=== PATIENT | female | born 1945 | race Caucasian/White ===

== ENCOUNTER 2016-06-21 02:37 | Inpatient (IN) | payer OTHER ==
[~2016-06-21] VITALS: Ht 162.6 cm; Wt 78.0 kg
--- NOTE | 2016-06-21 16:07 | RADIOLOGY REPORT ---
EXAMINATION:\H\ \N\XR CHEST CLINICAL INFORMATION: Port-A-Cath insertion. COMPARISON: None TECHNIQUE: Fluoroscopic imaging of the chest was performed. 2 saved spot fluoroscopy images are submitted into the electronic picture archive. FLUOROSCOPY TIME: 0.23 minutes. FINDINGS: The tip of the suboptimally visualized catheter appears to terminate at the level of the cavoatrial junction. Please refer to the operative report. IMPRESSION: Fluoroscopic imaging assistance was provided to operating room for Port-A-Cath insertion.
--- NOTE | 2016-06-21 16:26 | RADIOLOGY REPORT ---
EXAMINATION: XR PORTABLE CHEST CLINICAL INFORMATION: Cardiac arrest. COMPARISON: None TECHNIQUE: Portable AP view of the chest was obtained. FINDINGS: The tip of the endotracheal tube is located 1 cm above the lona. The tip of the Port-A-Cath terminates in the region of the cavoatrial junction. A chest tube is seen at the base of the left hemithorax. No pneumothorax. Cardiac silhouette is normal in size. Bronchial paulson appear relatively thick in the perihilar regions. There is nonspecific opacity in the retrocardiac area of the left lower lobe. No peripheral interstitial edema or pleural effusion. Mild dextroscoliosis of the thoracic spine. IMPRESSION: 1. Endotracheal tube is located 1 cm above the lona. Recommend withdrawing the tube by at least 1-2 cm. (This was discussed with the Hilda Charge Nurse, at 4:20 PM) 2. Nonspecific opacity in retrocardiac region of left lower lobe. In an acute setting, the possibility of aspiration pneumonia would be considered. Follow-up is recommended.
[2016-06-21 16:49] LABS: ABSOLUTE BASOPHIL COUNT 0.2 /CUMM (0.0-0.2); ABSOLUTE MONOCYTE COUNT 0.2 /CUMM (0.10-0.60); BASOPHIL % 0.7 % (0.0-2.0)
[2016-06-21 16:53] LABS: ABSOLUTE EOSINOPHIL COUNT 1.3 /CUMM (0.0-0.7); ABSOLUTE GRANULOCYTE CT 17.8 /CUMM (1.4-6.5); ABSOLUTE LYMPH COUNT 5.4 /CUMM (1.2-3.4); EOSINOPHIL % 5.1 % (0-5); GRANULOCYTE % 71.9 % (42.2-75.2); HEMATOCRIT 22.2 % (37-47); MEAN CORPUSCULAR HGB 28.5 PG (27.0-31.0); MEAN CORPUSCULAR HGB CONC 32.7 G/DL (33.0-37.0); MEAN PLATELET VOLUME 7.9 FL (7.4-10.4); PLATELET COUNT 97 /CUMM (130-400); RBC DISTRIBUTION WIDTH 18.9 % (11.5-14.5); RED BLOOD CELL CT 2.56 /CUMM (4.20-5.40); WHITE BLOOD CELL COUNT 24.7 /CUMM (4.8-10.8)
[2016-06-21 16:57] LABS: PTT 55 SEC (25-37)
[2016-06-21 17:05] VITALS: BP 100/60
--- NOTE | 2016-06-21 17:06 | Cons- CRCU ---
RAYSA DAVIS,[facility] 06/21/16 1706: General Information and HPI Consulting Request Date of Consult: 06/21/16 Requested By: Dr Paez Reason for Consult: Critically Ill Source of Information: family, old records, friend Exam Limitations: unable to give history History of Present Illness: Ms Jauregui is a 71-year-old female with past medical history of Colon Cancer s /p several weeks post robotic right colectomy and GERD who had presented to [facility] on 06/21/2016 for placement of a left Port-A-Cath as she was planning to start chemotherapy June 27. Reports from the OR state the patient had successfully undergone placement of Port-A-Cath. Following the procedure she was alert and oriented 3. As the team was in the process of taking down the drapes, the patient began coughing and subsequently sneezed 3 times. After this episode the patient became profoundly bradycardiac and developed pulseless electrical activity. The anesthesia team performed immediate ACLS. The patient did successfully have ROSC. A few minutes later, the patient became hemodynamically unstable and an Emergent intra-operative consultation was obtained from thoracic surgery and pulmonary critical care. When the thoracic surgeon arrived the patient was in cardiac arrest with ongoing CPR. It appeared that the patient may have developed a tension pneumothorax. The surgical team made an incision in the midaxillary line, and following decompression, a chest tube was inserted. This resulted in return of pulse and the patient being more hemodynamically stable. Prior to being transported to the intensive care unit for further management. The patient was moving all extremities. Non-hypothermic protocol was therefore not initiated. The patient has a very limited past medical history. Approximately 9 months ago she started visiting with her current PCP Dr. Mcfadden ([place]), and following routine blood work it appeared that the patient was profoundly anemic. She was subsequently admitted to [facility] for multiple transfusions and workup. Once the patient was discharged followed up with a edge burnisher. The patient underwent an endoscopy and colonoscopy. On this study the patient was found to have multiple polyps as well as a tumor which turned out to be malignant. Approximately 6 weeks ago she underwent a right robotic colectomy. Path from the surgery returned as T4 and positive stage III. She was subsequently referred to the oncologist Dr. Uday Carpio to begin chemotherapy. Patient's primary care physician is Jhonathan Mcfadden Patient Pharmacy is [facility]. Allergies/Medications Allergies: Coded Allergies: No Known Allergies (06/22/16) Current Medications: Current Medications Sig/Rafaela Start time Last Medication Dose Route Stop Time Status Admin Ampicillin Sodium/ 3,000 MG Q6 06/21 1904 AC Sulbactam Sodium IV Sodium Chloride 100 ML Ampicillin Sodium/ 1,500 MG Q6 06/21 1800 DC Sulbactam Sodium IV Sodium Chloride 100 ML Heparin Sodium 25,000 UNIT Q24H 06/21 1730 AC 06/21 (Porcine) IV 174 Sodium Chloride 500 ML Lorazepam 2 MG ONE ONE 06/21 1915 DC 06/21 IV 06/21 191 191 Magnesium Sulfate 1 GM ONCE ONE 06/21 191 AC 06/21 Dextrose/Water 100 ML IV 06/21 [id number] Non-Formulary 0 SEE ADMIN CRITERIA 06/21 1730 CAN Medication ANY Norepinephrine 4 MG Q24H 06/21 1800 AC 06/21 Sodium Chloride 250 ML IV 180 Pantoprazole Sodium 40 MG Q5H 06/21 181 CAN Sodium Chloride 100 ML IV Pantoprazole Sodium 40 MG DAILY 06/21 1815 AC 06/21 IV 1844 Potassium Chloride 20 MEQ ONCE ONE 06/21 1815 DC 06/21 IV 06/21 1816 1845 Potassium Chloride 20 MEQ Q13H 06/21 1815 AC 06/21 Sodium Chloride 1,000 ML IV 1916 Potassium Chloride 20 MEQ ONCE ONE 06/21 1730 DC 06/21 IV 06/21 1731 1740 Propofol 1,000 MG CONTINOUS INFUSION 06/21 1845 AC 06/21 N/A 100 ML IV 1730 Sodium Chloride 1,000 ML Q13H 06/21 1730 DC 06/21 IV 1741 Vasopressin 40 UNITS Q16H 06/21 1800 AC 06/21 Sodium Chloride 100 ML IV 1802 Review of Systems Review of Systems Constitutional: Reports: see HPI. Past History Travel History Traveled to [place] past 21 day No Medical History Neurological: NONE EENT: NONE, allergies Cardiovascular: NONE Respiratory: NONE Gastrointestinal: GERD, Colon CA Hepatic: NONE Renal: NONE Musculoskeletal: NONE Psychiatric: NONE Endocrine: NONE Blood Disorders: anemia Cancer(s): colon/rectal cancer DIRECTOR OF CUSTOMER SERVICE/Reproductive: NONE Surgical History Surgical History: Right Colectomy Family History Relations & Conditions If Any: FATHER (Alzheimers disease.). , Age 60+. Psychosocial History Where Do You Live? Home Who Do You Live With? spouse Services at Home: None Primary Language: Syrian Smoking Status: Former Smoker ([employer] history) ETOH Use: occasional use Functional Ability ADLs Independent: dressing, eating, toileting, bathing. Ambulation: independent IADLs Independent: shopping, housework, finances, food prep, telephone, transportation , medication admin. Exam & Diagnostic Data Last 24 Hrs of Vital Signs/I&O Vital Signs Date Time Temp Pulse Resp B/P B/P Pulse O2 O2 Flow FiO2 Mean Ox Delivery Rate 06/21 1919 100 06/21 1802 98 100/55 06/21 1730 99 Ventilator 100% 06/21 1723 100 06/21 1705 96.6 101 29 100/60 99 Ventilator 100% Physical Exam General Appearance: intubated Head: atraumatic, normal appearance Eyes: Bilateral: PERRL (Sluggish response). Ears, Nose, Throat: normal pharynx, normal ENT inspection Neck: normal inspection Respiratory: crackles, rhonchi, Left Chest Tube in Place Cardiovascular: regular rate/rhythm Peripheral Pulses: 3+ dorsalis pedis (R), 3+ dorsalis pedis (L) Gastrointestinal: normal bowel sounds, soft, non-tender Extremities: normal inspection, normal capillary refill, no edema Cranial Nerves: PERRL Skin: intact Last 48 Hrs of Labs/Sherman: Laboratory Tests 06/21/160: pH 7.46 H, pCO2 27 L, pO2 70 L, HCO3 19 L, ABG O2 Sat (Measured) 93.0 L, P- 50 (Temp Corrected) Y, Carboxyhemoglobin 0.3 L, O2 Concentration % 100, Temperature 96.6 L, Respiration Rate 26, O2 Delivery Method VENT, Vent Mode CMV , Expiratory Pressure 5, Tidal Volume 550, Phlebotomy Draw Site CHESTER GAP 06/21/16 1735: Anion Gap 16, Estimated GFR > 60, Glucose 197 H, Calcium 7.9 L, Phosphorus 6.0 H, Magnesium 1.5 L, Total Bilirubin 0.4, AST 87 H, ALT 97 H, Albumin 2.2 L, PT 16.4 H, INR 1.57 H, APTT 44 H, CBC w Diff NO MAN DIFF REQ, RBC 2.60 L, MCV 85.8, MCH 28.3, RDW 18.9 H, MPV 7.6, Gran % 87.7 H, Lymphocytes % 9.7 L, Monocytes % 0.1 L, Eosinophils % 2.4, Basophils % 0.1, Absolute Granulocytes 29.5 H, Absolute Lymphocytes 3.3, Absolute Monocytes 0 L, Absolute Eosinophils 0.8, Absolute Basophils 0, PUBS MCHC 33.0 06/21/16 1730: Lactic Acid 9.8 H 06/21/16 1714: Sodium Cancelled, Potassium Cancelled, Chloride Cancelled, Carbon Dioxide Cancelled, Anion Gap Cancelled, BUN Cancelled, Creatinine Cancelled, Glucose Cancelled, Calcium Cancelled, Phosphorus Cancelled, Magnesium Cancelled, Total Bilirubin Cancelled, AST Cancelled, ALT Cancelled, Albumin Cancelled, CBC w Diff Cancelled, WBC Cancelled, RBC Cancelled, Hgb Cancelled, Hct Cancelled, MCV Cancelled, MCH Cancelled, RDW Cancelled, Plt Count Cancelled, MPV Cancelled, PUBS MCHC Cancelled 06/21/16 1630: Anion Gap 21 H, Estimated GFR > 60, BUN/Creatinine Ratio 25.0, Troponin I 0.05, PT 15.0 H, INR 1.43 H, APTT 55 H, CBC w Diff MAN DIFF ORDERED, RBC 2.56 L, MCV 87.0, MCH 28.5, RDW 18.9 H, MPV 7.9, Gran % 71.9, Lymphocytes % 21.6, Monocytes % 0.7 L, Eosinophils % 5.1 H, Basophils % 0.7, Absolute Granulocytes 17.8 H, Segmented Neutrophils 57, Band Neutrophils 7 H, Absolute Lymphocytes 5.4 H, Lymphocytes 30, Monocytes 2, Absolute Monocytes 0.2, Eosinophils 3, Absolute Eosinophils 1.3, Basophils 1, Absolute Basophils 0.2, Platelet Estimate DECREASED, Poikilocytosis 1+, Anisocytosis 2+, Microcytic Cells 1+, Ovalocytes FEW, PUBS MCHC 32.7 L 06/21/16 1618: pH 7.37, pCO2 44, pO2 103 H, HCO3 25, ABG O2 Sat (Measured) 97.0, Carboxyhemoglobin 1.0 L, O2 Concentration % 100%, O2 Delivery Method VENT Diagnostic Data EKG Results Sinus rhythm with right bundle-branch block at rate of 94 CXR Results SERVICE DATE: 06/21/16- EXAM TYPE: RAD - XRY-PORTABLE CHEST XRAY EXAMINATION: XR PORTABLE CHEST CLINICAL INFORMATION: Respiratory depression. Intubation. COMPARISON: Chest x-ray 06/21/2016, 3:57 PM TECHNIQUE: Portable frontal view of the chest was obtained. 5:50 PM FINDINGS: Endotracheal tube in position with the catheter tip about 1 cm above the lona. Left subclavian line catheter tip in superior vena cava at the cavoatrial junction. Nasogastric tube passing down into the stomach with the tip is below the margin of the film. Left chest tube at the left lung base. Lung volume is low. There is prominence of the central hilar vessels due to low inspiratory effort. There is increasing density in the retrocardiac area at the left lung base of atelectasis and/or consolidation. No pleural effusion. No pneumothorax. IMPRESSION: 1. Endotracheal tube catheter 1 cm above the lona. 2. Nasogastric tube passing into stomach. 3. Left chest tube at left lung base. No pneumothorax. 4. Central port catheter tip in superior vena cava. 5. Low lung volume with prominence of central hilar vasculature. 6. Increasing density at the left lung base of infiltrate and/or atelectasis. DICTATED BY: NICKI JOE MD Assessment/Plan Impression/Plan: Ms Jauregui is a 71-year-old female with past medical history of Colon Cancer s /p several weeks post robotic right colectomy and GERD who had presented to [facility] on 06/21/2016 for placement of a left Port-A-Cath. Following the procedure, the patient experienced cardiac arrest likely as a result of a tension pneumothorax. She is currently admitted to the intensive care unit for further management. She is currently intubated and below are her ventilation settings. Rate: 18 Peak flow: 65 PEEP: 5 TV: 550 % O2: 100 PSV: 6 Alvarado: Day One. Femoral line: Day One Respiratory Status post incision and placement of chest tube, left lung reexpanded. No evidence of hemothorax. Repeat chest x-ray showed no pneumothorax. Due to increased density at left lung and/or atelectasis,We are treating the patient empirically for aspiration pneumonia. She is currently on Unasyn 3000 mg every 6. CBC elevated. Patient is currently afebrile. CBC likely reactive versus infective. Will repeat CBC in the a.m. Chest tube management as per surgery. We are also empirically treating the patient on IV heparin as per PE/DVT protocol. Should the patient's respiratory status deteriorated overnight consider a CTA stat to rule out pulmonary embolism. May consider discontinuing Heparin if Patient more stable in AM. Continue intubation. Propofol drip. Maintain SAS score 3. Repeat chest x-ray in a.m. as patient is intubated. Cardiovascular Cardiogenic shock requiring 2 pressors and aggressive fluid hydration. Currently on vasopressin and Levophed. Maintain mean arterial pressure above 65 mm/hg. Titrate need for pressors accordingly. Monitor the patient for any ventricular tachycardias. If further ventricular tachycardia is noted consider amiodarone. Initial lactic acid 9.8. Continue trending. Maintain aggressive hydration. Increased lactic acid likely due to hypoperfusion. Hematology Patient's H&H is afternoon 7.3/22.2. Patient's revealed last H&H was . We have obtained consent and transfuse the patient 1 unit. Maintain H&H above 8. Repeat CBC in a.m. Metabolic Patient was hypokalemic. Target range above 4.0. Continue IV KCl. Repeat BEP in a.m. Renal BUN to creatinine ratio: 28.57. Likely due to hypoperfusion. Repeat BEP in a.m. Continue aggressive hydration. DVT prophylaxis Heparin Code FC Problem List: 1. Endotracheally intubated 2. Tension pneumothorax, spontaneous 3. Cardiac arrest 4. Pulmonary embolism 5. Cardiocirculatory collapse Consult Acknowledgment - Thank you for your consult request. CARMELA DAVIS,Jose CROWLEY 06/21/16 7188: Assessment/Plan Recommendations: * IV heparin for possible pulmonary embolism to continue. * We'll attempt to do a CTA if the patient's renal function continues to be stable. * Attempt to wean levophed down to off if able. * Continue IVF resuscitation for adeqate I&Os, urine out put. * Follow-up cultures. * Continue empiric IV Unasyn. * Discontinue all sedation. * Continue with electrolyte repletion. * Continue Ventilator bundle. * Monitor for ventricular tachycardia. May consider giving amiodarone if further significant ventricular tachycardia is noted Other Findings/Comments: I have personally seen and examined the patient and agree with the housestaff assessment as detailed above. The patient is a 71-year-old female with a history of lymph node-positive colon cancer. I was called stat to the OR for acute cardiac arrest. The patient was undergoing a Port-A-Cath placement. She tolerated the procedure well without any significant bleeding. The patient was awakening from anesthesia, noting that she sneezed 3 times and subsequently decompensated with respect to her hemodynamics. Her oxygen saturations abruptly dropped as well. A tension pneumothorax was suspected, and she underwent left- sided needle decompression with improvement in terms of her oxygenation. The patient subsequently lost her pulses and CPR was performed as well as ACLS protocol. A bedside ultrasound was performed that failed to reveal any evidence of aortic dissection or pericardial effusion. There was some suspicion of a stunned right ventricle, and IV heparin was started and TPA was considered. A stat echocardiogram was performed in the OR that failed to demonstrate any evidence of significant right-sided strain and TPA was held off. Patient had blood work that showed significant anemia noting she will be transfused 1 unit of packed red blood cells. Laboratory studies postarrest demonstrated a low potassium of 2.7 which is currently being repleted. The patient is on mechanical ventilation and Levophed as well as vasopressin. Her blood pressure remains in the 120s to 140s and the pressors are being tapered down. The patient remains on 100% oxygen noting she had a postintubation chest x-ray that showed the ET tube 1 cm above the lona which was withdrawn. There is also a left lower lobe nonspecific opacity. The patient has been pancultured and will be started on IV Unasyn. The plan overnight is to continue IV heparin, follow- up lower extremity Dopplers, repeat a chest x-ray and ABG, adjust mechanical ventilation as necessary, follow-up cultures, continue empiric IV Unasyn, IV fluids for improved urine output and blood pressure support, and tapering of oxygen down if able. Electrolytes will be replaced as necessary. We will monitor the patient in the critical care unit closely and adjust therapy as necessary. Of note, the patient is not a candidate for therapeutic hypothermia as she has significant spontaneous movements which seem somewhat purposeful. I have discussed the plan of care with the housestaff and asked them to contact me should the patient's condition change or deteriorate. I have discussed the condition and plan of care with the patient's family at the bedside, and have answered all of their questions. Web Applications Programmer support and comfort cart were provided. Consult Acknowledgment - Thank you for your consult request. TASHA ESQUIVEL 06/22/16 1053: Assessment/Plan Consult Acknowledgment - Thank you for your consult request.
--- NOTE | 2016-06-21 17:09 | Cons- Thoracic Surgery ---
See Addendum General Information and HPI Consulting Request Date of Consult: 06/21/16 Requested By: BONG FLORENTINO JR, DO Reason for Consult: Intraoperative cardiac arrest secondary to tension pneumothorax Source of Information: PCP Exam Limitations: clinical condition History of Present Illness: I was called as an emergency to the operating room by Dr. Estrada to evaluate Ms. Jauregui. He had finished a Port-A-Cath placement and the patient became unstable. She was hypoxemic and hypotensive and a needle catheter rests her left chest with some return of stability. Cardiothoracic surgical evaluation is asked for intraoperative chest tube placement and evaluation. Past History Psychosocial History Smoking Status: Unknown If Ever Smoked Review of Systems Review of Systems: Unobtainable given clinical situation. Exam & Diagnostic Data Vital Signs and I&O Cardiac arrest with ongoing CPR Physical Exam: The patient is on the table and has no blood pressure or heart rhythm. CPR is in progress. The surgical PA prepped the left chest with chlorhexidine and made an incision in the midaxillary line. A 20 [place] chest tube was passed into the chest with stabilization and return of a pulse pressure along with oxygen saturations. Imaging Results: Bedside cardiac echo on the table showed contractility of the left ventricle and evidence of right ventricular strain and dilatation. Section shows midline mediastinum with reexpansion of the left lung and no evidence of hemothorax. Assessment/Plan Assessment/Plan Clinical course seems to be consistent with a tension pneumothorax related to the subclavian Port-A-Cath procedure. Concerns were regarding the patient's continued instability status post chest tube placement. Critical care consultation is in progress and an echocardiogram and a formal evaluation is pending. For now the chest will remain in place on suction with reexpansion. The patient will be stabilized by the critical care team and we will follow along with chest tube management. Consult Acknowledgment - Thank you for your consult request.
--- NOTE | 2016-06-21 17:19 | ECHOCARDIOGRAM REPORT ---
NATALEE MAXWELL Age: 71 : 1945 Gender: F Exam Date: 06/21/2016 16:45 Exam Location: [facility] Ht (in): Wt (lb): BSA: BP: / Ordering Physician: NACHO JACKMAN M Referring Physician: NACHO JACKMAN MD Technologist: Danae Palacios RDCS Room Number: #2 Indications: ACUTE PULMONARY EMBOLISM Rhythm: Sinus Technical Quality: Fair FINDINGS Left Ventricle Normal left ventricular size and systolic function. Left ventricular ejection fraction is estimated at >60 %. Normal left ventricular wall motion. Right Ventricle Normal right ventricular size and function. Right Atrium Normal right atrial size. Left Atrium Normal left atrial size. Mitral Valve Mild mitral annular calcification. Aortic Valve Aortic valve mildly thickened. No aortic stenosis. Tricuspid Valve Tricuspid valve not well visualized, grossly normal. Mild-to- moderate tricuspid regurgitation. No evidence of pulmonary hypertension. Pulmonic Valve Pulmonic valve not well visualized, grossly normal. Trace pulmonic regurgitation. Pericardium No pericardial effusion. Great Vessels Ascending aorta grossly normal. CONCLUSIONS Normal left ventricular size and systolic function. Left ventricular ejection fraction is estimated at >60 %. [id number] tricuspid regurgitation. No evidence of pulmonary hypertension. Normal right ventricular size and function. Nacho Jackman M.D. (Electronically Signed) Final Date: 21 June 2016 17:19 MEASUREMENTS (Male / Female) Normal Values DOPPLER TR Peak Velocity 277.0 cm/s TR Peak Gradient 30.7 mmHg Right Atrial Pressure 5.0 mmHg Pulmonary Artery Systolic Pressu 35.7 mmHg Right Ventricular Systolic Press 35.7 mmHg
--- NOTE | 2016-06-21 17:36 | Cons- Cardiology ---
General Information and HPI Consulting Request Date of Consult: 06/21/16 Requested By: Jose CASEY MD Reason for Consult: Cardiac Arrest History of Present Illness: The patient is a 71-year-old female who underwent placement of a Port-A-Cath in the operating room. Postoperatively, she became bradycardic and hypotensive. The patient was observed to develop pulseless electrical activity. A needle decompression of the left chest was performed for possible tension pneumothorax. Patient initially improved, and then became unstable again. ACLS protocol was followed. The patient was observed to have wide complex tachycardia consistent with possible ventricular tachycardia, however no strips are available. The patient was felt to have likely pulmonary embolus. An emergent echo was performed which revealed normal left function and normal right ventricular function with no evidence of RV strain. The patient is intubated, and is not able to give any history. Allergies/Medications Allergies: Coded Allergies: No Known Allergies (06/22/16) Home Med List: Metoprolol Tartrate 50 MG TABLET 1 TAB PO BID HIGH BLOOD PRESSURE Current Medications: Current Medications Sig/Rafaela Start time Last Medication Dose Route Stop Time Status Admin Ampicillin Sodium/ 1,500 MG Q6 06/21 1800 UNVr Sulbactam Sodium IV Sodium Chloride 100 ML Heparin Sodium 25,000 UNIT Q24H 06/21 1730 UNVr 06/21 (Porcine) IV 174 Sodium Chloride 500 ML Non-Formulary 0 SEE ADMIN CRITERIA 06/21 1730 UNVr Medication ANY Norepinephrine 4 MG Q24H 06/21 1800 UNVr 06/21 Sodium Chloride 250 ML IV 1802 Pantoprazole Sodium 40 MG Q5H 06/21 181 CANr Sodium Chloride 100 ML IV Pantoprazole Sodium 40 MG DAILY 06/21 1815 UNVr IV Potassium Chloride 20 MEQ ONCE ONE 06/21 1815 UNVr IV 06/21 1816 Potassium Chloride 20 MEQ Q13H 06/21 1815 UNVr Sodium Chloride 1,000 ML IV Potassium Chloride 20 MEQ ONCE ONE 06/21 1730 UNVr 06/21 IV 06/21 1731 1740 Sodium Chloride 1,000 ML Q13H 06/21 1730 DC 06/21 IV 1741 Vasopressin 40 UNITS Q16H 06/21 1800 UNVr 06/21 Sodium Chloride 100 ML IV 1802 Review of Systems Review of Systems: No fever. No chills. No rash. No tremor. All other systems are reviewed and are noted to be negative. Past History Surgical History Surgical History: none (Right colectomy), knee replacement Family History Family History Reviewed? family history is notable for Alzheimer's dementia in the patient's father Psychosocial History Smoking Status: Unknown If Ever Smoked Exam & Diagnostic Data Vital Signs and I&O Vital Signs Date Time Temp Pulse Resp B/P B/P Pulse O2 O2 Flow FiO2 Mean Ox Delivery Rate 06/21 1802 98 100/55 06/21 1723 100 Physical Exam: Gen: The patient is in no acute distress HEENT: Normal nose, ears, and oropharynx. Pupils equal bilaterally. Conjunctiva normal. Neck: Supple with no JVD, no masses, and no thyromegaly Lungs: Normal breath sounds on the ventilator with decreased respiratory effort Heart: RRR, S1, S2, no murmurs. No peripheral edema, 1+ pulses in the lower extremities bilaterally Abdomen: Soft, nontender, no masses. No hepatomegaly. No splenomegaly Extremities: No clubbing or cyanosis. Normal muscle strength in the upper and lower extremities Skin: Normal skin turgor with no skin ulcers or lesions noted. Neuro: Cranial nerves intact. Sensation intact Psych: Alert and oriented 3 with appropriate affect Labs/Sherman Results: Laboratory Tests 06/21 06/21 06/21 1714 1630 1618 Blood Gas pH (7.35 - 7.45 PH) 7.37 pCO2 (35 - 45 TORR) 44 pO2 (80 - 100 TORR) 103 H HCO3 (21 - 28 MEQ/L) 25 ABG O2 Sat (Measured) (>96.0 %) 97.0 Carboxyhemoglobin (1.5 - 5.0 %) 1.0 L O2 Concentration % 100% O2 Delivery Method VENT Chemistry Sodium (137 - 145 mmol/L) Cancelled 137 Potassium (3.5 - 5.1 mmol/L) Cancelled 2.7 *L Chloride (98 - 107 mmol/L) Cancelled 102 Carbon Dioxide (22 - 30 mmol/L) Cancelled 14 L Anion Gap (5 - 16) Cancelled 21 H BUN (7 - 17 mg/dL) Cancelled 20 H Creatinine (0.5 - 1.0 mg/dL) Cancelled 0.8 Estimated GFR (>60 ml/min) > 60 BUN/Creatinine Ratio (7 - 25 %) 25.0 Glucose Cancelled Calcium Cancelled Phosphorus Cancelled Magnesium Cancelled Total Bilirubin Cancelled AST Cancelled ALT Cancelled Troponin I (< 0.11 ng/ml) 0.05 Albumin Cancelled Coagulation PT (9.4 - 12.5 SEC) 15.0 H INR (0.90 - 1.19) 1.43 H APTT (25 - 37 SEC) 55 H Hematology CBC w Diff Cancelled MAN DIFF ORDERED WBC (4.8 - 10.8 /CUMM) Cancelled 24.7 H RBC (4.20 - 5.40 /CUMM) Cancelled 2.56 L Hgb (12.0 - 16.0 G/DL) Cancelled 7.3 *L Hct (37 - 47 %) Cancelled 22.2 L MCV (81.0 - 99.0 FL) Cancelled 87.0 MCH (27.0 - 31.0 PG) Cancelled 28.5 RDW (11.5 - 14.5 %) Cancelled 18.9 H Plt Count (130 - 400 /CUMM) Cancelled 97 L MPV (7.4 - 10.4 FL) Cancelled 7.9 Gran % (42.2 - 75.2 %) 71.9 Lymphocytes % (20.5 - 51.1 %) 21.6 Monocytes % (1.7 - 9.3 %) 0.7 L Eosinophils % (0 - 5 %) 5.1 H Basophils % (0.0 - 2.0 %) 0.7 Absolute Granulocytes (1.4 - 6.5 /CUMM) 17.8 H Segmented Neutrophils (42.2 - 75.2 %) 57 Band Neutrophils (0.0 - 5.0 %) 7 H Absolute Lymphocytes (1.2 - 3.4 /CUMM) 5.4 H Lymphocytes (20.5 - 51.1 %) 30 Monocytes (1.7 - 9.3 %) 2 Absolute Monocytes (0.10 - 0.60 /CUMM) 0.2 Eosinophils (0 - 5.0 %) 3 Absolute Eosinophils (0.0 - 0.7 /CUMM) 1.3 Basophils (0.0 - 2.0 %) 1 Absolute Basophils (0.0 - 0.2 /CUMM) 0.2 Platelet Estimate (ADEQUATE) DECREASED Poikilocytosis 1+ Anisocytosis 2+ Microcytic Cells 1+ Ovalocytes FEW PUBS MCHC (33.0 - 37.0 G/DL) Cancelled 32.7 L Diagnostic Data EKG Results EKG tracing is independently reviewed, and reveals sinus rhythm with right bundle-branch block at rate of 94 CXR Results 1. Endotracheal tube is located 1 cm above the lona. Recommend withdrawing the tube by at least 1-2 cm. (This was discussed with the Hilda Charge Nurse, at 4:20 PM) 2. Nonspecific opacity in retrocardiac region of left lower lobe. In an acute setting, the possibility of aspiration pneumonia would be considered. Follow-up is recommended. Other Results Echocardiogram: Normal left ventricular size and systolic function. Left ventricular ejection fraction is estimated at >60 %. [id number] tricuspid regurgitation. No evidence of pulmonary hypertension. Normal right ventricular size and function. Assessment/Plan Assessment/Plan Assessment: 1. Postoperative cardiac arrest. Possible tension pneumothorax. Possible pulmonary embolism. 2. Wide-complex tachycardia, possible ventricular tachycardia seen during code 3. Normal left tubular function and normal RV function seen on echocardiogram Plan: * Ventilatory support as per pulmonary * IV heparin for possible pulmonary embolism * Pressor support as needed to maintain adequate blood pressure * Monitor for ventricular tachycardia. May consider giving amiodarone if further significant ventricular tachycardia is noted Consult Acknowledgment - Thank you for your consult request.
--- NOTE | 2016-06-21 17:41 | Operative Report ---
Operative/Inv Procedure Report Surgery Date: 06/21/16 Name of Procedure: Nick left subclavian Port-A-Cath/ ventral venous catheter Pre-Operative Diagnosis: Stage III colon cancer Post-Operative Diagnosis: Stage III colon cancer Estimated Blood Loss: scant Surgeon/Sinter Press Operator: Dr Jonny Paez Jr., D.O. Anesthesia: local monitored anesthesi, block Monitors: Per routine Implants: Left subclavian low profile power port Drains: Chest tube left side Specimens: None Complications: Cardiopulmonary arrest Condition: Intubated on pressors to ICU Operative Indication: This is a 71-year-old female who is several weeks status post a robotic right colectomy. The colon was removed en bloc with portion of the rectus was a direct tumor invasion. She was recovering nicely from her surgery. Her path returned as T4 N positive stage III. She was referred to oncology. She is planning to start chemotherapy next week so she presented for her Port-A-Cath placement today Operative/Procedure Note Note: The patient was taken into the operating room placed in supine position on the operating room table. Left arm was tucked and then she received IV sedation. Once she was comfortable the chest and neck was prepped and draped in usual fashion. A block was performed with 1% lidocaine. Using the procedure needle was able to easily cannulate the subclavian vein which easily shirin dark red venous blood. The procedure wire was passed through the needle. We confirmed placement in the subclavian vein with fluoroscopy and could see the wire passing all the way into the right atrium. No ectopy was ever observed at this portion of the procedure. A pocket was created in the upper outer quadrant of the left chest. The incision at the needle puncture site was lengthened slightly. The catheter was passed from the needle insertion site into the pocket. Next the dilator was passed over the wire using 4 scopic guidance. The length from the needle insertion site to the junction with the RA was measured at about 21 cm. The catheter was cut to 21 cm. The port was secured to the catheter with the locking device. The port was then sutured into the pocket with 0 Vicryl suture. The tip of the catheter was passed through the trocar. The trocar was then fractured and peeled away. X-ray was used to confirm the tip of the catheter in the SVC. And there was no kinking along the length of the catheter. I was satisfied with its position. At this point I aspirated a small amount of dark blood from the port and then flushed the catheter with heparinized saline. The incisions were irrigated with saline. The incision was then closed in 2 layers. Deeper layer of adipose tissue was approximated with interrupted 2-0 Vicryl suture. The skin was closed with running subcuticular 4-0 Monocryl. The skin was then cleansed and dried. Mastisol and Steri-Strips were applied. A sterile occlusive dressing was applied. At this point the procedure was concluded and we were beginning to take down the drapes. The patient was conversant with us and then started coughing. At this time she became profoundly bradycardic. And appeared to develop pulseless electrical activity. ACLS was immediately formed by the anesthesia team. The clearing inspector, Dr Amalia Metzger, rapidly responded and guided to resuscitation. Was my feeling that the patient likely had a tension pneumothorax so needle decompression of the left chest was performed. This appeared to temporarily improve her situation and her pulse and blood pressure came back. At this point she became unstable again. Emergent Intra-Op consultation was obtained from pulmonary critical care and thoracic surgery. A left chest tube was placed. The patient continued to receive ACLS. Cardiology was consulted and echocardiogram was performed in the OR. We empirically started anticoagulation for presumed pulmonary embolus. And at this point the patient appeared to stabilize. Patient was then transferred intubated on pressors to the ICU. Discharge Disposition: Critical Care Unit
--- NOTE | 2016-06-21 18:00 | NUR ---
Patient arrived to room 108 at approx 1705 accompanied by OR staff- Report received from Kristie MENDEZ- Upon arrival patient is sedated, pupils are approx 4mm and sluggish. She is weakly moving all extremities but movements are not purposeful. Propofol gtt has been started per order and is infusing at 5mcg/kg SAS-3. NSR-ST on tele monitor, HR= 90-100's. SBP: 90-100's- Vasopressin gtt infusing at 6mls/hr or 0.04 units and Levo gtt has been titrated up to 6mcg. Upon arrival to [facility] at 1705 levo (at 2mcg) and vasopressin had already been infusing- see OR records. A left radial hussain is in place and site is WNL. ECHO was previously done. Positive pulses to all extremities. She was previously intubated in the OR with a #7 to the right at 21cm- CXR was done for confirmation of ETT and was previously repositioned. Vent settings are currently AC 26/500/100/5. O2 sats ranging from 96-100%. Lungs are rhonchorous throughout. ABG's to be redrawn. Scant amounts of clear with slight blood tinged secretions noted from the ETT when suctioning. A left sided chest tube is in place and connected to low wall suction with bloody drainage noted. The dressing to the chest tube insertion site was reinforced upon arrival. OGT in place and CXR completed in ICU for placement- Connected to low wall suction with no output. Abdomen is soft with hypoactive bowel sounds. Last BM this morning per patients . Alvarado in place draining clear yellow urine- UC sent per order. Skin appears intact with no areas of pressure injury. A dressing is noted to the LCW where a port-a-cath was placed today- Scant amounts of bloody drainage noted to the dressing. Trace generalized edema. A L. groin TLC is in place and a pressure dressing was placed. NS infusing at 75mls/hr per order. A heparin gtt was started at 1730 per protocol and next PTT due at 2330- a 5000 unit heparin bolus was given in the OR. Patient is also receiving a potassium bolus. Labs were redrawn upon arrival and blood cultures to be drawn. Awaiting unasyn from pharmacy and patient to receive. Type and screen is pending and she is also to receive 1 unit of prbc per order. No s/s of pain are currently noted. Dr. Akins in to see patient at this time. Family now at the bedside and was oriented to unit and room- they have been updated on poc frequently. Admission information received from patients . Will continue to closely monitor patient.
--- NOTE | 2016-06-21 18:34 | ULTRASOUND REPORT ---
EXAMINATION: US TRIPLEX OF LOWER EXTREMITIES, BILATERAL CLINICAL INFORMATION: Postoperative COMPARISON: None TECHNIQUE: Color-flow triplex imaging with spectral analysis and compression Doppler were performed on the lower extremities. FINDINGS: This exam is limited. Portable study. Left groin is bandaged. Given this there is no convincing evidence of DVT right or left. It should be noted the left common femoral vein as well as superficial femoral vein proximally cannot be adequately imaged due to bandage. There is no Merida's cyst. IMPRESSION: The left common femoral vein and proximal superficial femoral vein cannot be imaged due to the patient's bandage. There is otherwise no evidence of DVT in the right or left lower extremity.. Limited portable study
[2016-06-21 18:45] LABS: MEAN CORPUSCULAR VOLUME 85.8 FL (81.0-99.0); MEAN PLATELET VOLUME 7.6 FL (7.4-10.4)
[2016-06-21 18:49] LABS: ABSOLUTE BASOPHIL COUNT 0 /CUMM (0.0-0.2); ABSOLUTE EOSINOPHIL COUNT 0.8 /CUMM (0.0-0.7); ABSOLUTE GRANULOCYTE CT 29.5 /CUMM (1.4-6.5); ABSOLUTE LYMPH COUNT 3.3 /CUMM (1.2-3.4); ABSOLUTE MONOCYTE COUNT 0 /CUMM (0.10-0.60); BASOPHIL % 0.1 % (0.0-2.0); EOSINOPHIL % 2.4 % (0-5); HEMATOCRIT 22.3 % (37-47); MEAN CORPUSCULAR HGB 28.3 PG (27.0-31.0); RBC DISTRIBUTION WIDTH 18.9 % (11.5-14.5)
[2016-06-21 18:49] LABS: PT 16.4 SEC (9.4-12.5); PTT 44 SEC (25-37)
[2016-06-21 18:50] LABS: GRANULOCYTE % 87.7 % (42.2-75.2); PLATELET COUNT 203 /CUMM (130-400)
[2016-06-21 18:51] LABS: WHITE BLOOD CELL COUNT 33.6 /CUMM (4.8-10.8)
--- NOTE | 2016-06-21 18:56 | RADIOLOGY REPORT ---
EXAMINATION: XR PORTABLE CHEST CLINICAL INFORMATION: Respiratory depression. Intubation. COMPARISON: Chest x-ray 06/21/2016, 3:57 PM TECHNIQUE: Portable frontal view of the chest was obtained. 5:50 PM FINDINGS: Endotracheal tube in position with the catheter tip about 1 cm above the lona. Left subclavian line catheter tip in superior vena cava at the cavoatrial junction. Nasogastric tube passing down into the stomach with the tip is below the margin of the film. Left chest tube at the left lung base. Lung volume is low. There is prominence of the central hilar vessels due to low inspiratory effort. There is increasing density in the retrocardiac area at the left lung base of atelectasis and/or consolidation. No pleural effusion. No pneumothorax. IMPRESSION: 1. Endotracheal tube catheter 1 cm above the lona. 2. Nasogastric tube passing into stomach. 3. Left chest tube at left lung base. No pneumothorax. 4. Central port catheter tip in superior vena cava. 5. Low lung volume with prominence of central hilar vasculature. 6. Increasing density at the left lung base of infiltrate and/or atelectasis.
--- NOTE | 2016-06-21 19:30 | NUR ---
SAS ranging from 4-5, propofol gtt has been titrated up per protocol and is now infusing at 20mcg and 2mg IV ativan given- see flow sheet for details. Soft bilateral wrist restraints have been placed and family has been educated. No urine output was noted from [id number] Xiao was notified. IVF have been increased to 100mls/hr. ABO confirmation drawn per order- Patient to received IV unasyn once received from pharmacy (order has been changed)- report given to oncoming RN- Vitals currently stable. Will continue to closely monitor patient.
--- NOTE | 2016-06-21 20:36 | PN- Thoracic Surgery ---
Subjective Subjective: Postop check: Patient intubated, stable in the ICU. Objective Vital Signs and I&Os Vital Signs Date Time Temp Pulse Resp B/P B/P Pulse O2 O2 Flow FiO2 Mean Ox Delivery Rate 06/21 1919 100 06/21 1802 98 100/55 06/21 1730 99 Ventilator 100% 06/21 1723 100 06/21 1705 96.6 101 29 100/60 99 Ventilator 100% Physical Exam: Well-developed well-nourished , intubated HEENT: Atraumatic, Neck: Supple, no lymphadenopathy, no tracheal deviation Respiratory: No respiratory distress, mild rhonchi noted left lung, right lung is clear. Breath sounds noted throughout all lung shipman. Left-sided chest tube in place, no leak noted, dressing with small amount of bloody staining. Extremities: No edema, Skin: Warm and dry, no rash on exposed skin Results Last 48 Hours of Labs: Laboratory Tests 06/21 06/21 06/21 1840 1735 1730 Blood Gas pH (7.35 - 7.45 PH) 7.46 H pCO2 (35 - 45 TORR) 27 L pO2 (80 - 100 TORR) 70 L HCO3 (21 - 28 MEQ/L) 19 L ABG O2 Sat (Measured) (>96.0 %) 93.0 L P-50 (Temp Corrected) Y Carboxyhemoglobin (1.5 - 5.0 %) 0.3 L O2 Concentration % 100 Temperature (97.0 - 100.0 FARH) 96.6 L Respiration Rate (BPM) 26 O2 Delivery Method VENT Vent Mode CMV Expiratory Pressure (CMH2O/P) 5 Tidal Volume (CC) 550 Chemistry Sodium (137 - 145 mmol/L) 139 Potassium (3.5 - 5.1 mmol/L) 3.2 L Chloride (98 - 107 mmol/L) 107 Carbon Dioxide (22 - 30 mmol/L) 15 L Anion Gap (5 - 16) 16 BUN (7 - 17 mg/dL) 20 H Creatinine (0.5 - 1.0 mg/dL) 0.7 Estimated GFR (>60 ml/min) > 60 Glucose (65 - 99 mg/dL) 197 H Lactic Acid (0.7 - 2.1 mmol/L) 9.8 H Calcium (8.4 - 10.2 mg/dL) 7.9 L Phosphorus (2.5 - 4.5 mg/dL) 6.0 H Magnesium (1.6 - 2.3 mg/dL) 1.5 L Total Bilirubin (0.2 - 1.3 mg/dL) 0.4 AST (14 - 36 U/L) 87 H ALT (9 - 52 U/L) 97 H Albumin (3.5 - 5.0 g/dL) 2.2 L Coagulation PT (9.4 - 12.5 SEC) 16.4 H INR (0.90 - 1.19) 1.57 H APTT (25 - 37 SEC) 44 H Hematology CBC w Diff NO MAN DIFF REQ WBC (4.8 - 10.8 /CUMM) 33.6 *H RBC (4.20 - 5.40 /CUMM) 2.60 L Hgb (12.0 - 16.0 G/DL) 7.4 *L Hct (37 - 47 %) 22.3 L MCV (81.0 - 99.0 FL) 85.8 MCH (27.0 - 31.0 PG) 28.3 RDW (11.5 - 14.5 %) 18.9 H Plt Count (130 - 400 /CUMM) 203 MPV (7.4 - 10.4 FL) 7.6 Gran % (42.2 - 75.2 %) 87.7 H Lymphocytes % (20.5 - 51.1 %) 9.7 L Monocytes % (1.7 - 9.3 %) 0.1 L Eosinophils % (0 - 5 %) 2.4 Basophils % (0.0 - 2.0 %) 0.1 Absolute Granulocytes (1.4 - 6.5 /CUMM) 29.5 H Absolute Lymphocytes (1.2 - 3.4 /CUMM) 3.3 Absolute Monocytes (0.10 - 0.60 /CUMM) 0 L Absolute Eosinophils (0.0 - 0.7 /CUMM) 0.8 Absolute Basophils (0.0 - 0.2 /CUMM) 0 PUBS MCHC (33.0 - 37.0 G/DL) 33.0 Miscellaneous Phlebotomy Draw Site ONECO 06/21 06/21 06/21 1714 1630 1618 Blood Gas pH (7.35 - 7.45 PH) 7.37 pCO2 (35 - 45 TORR) 44 pO2 (80 - 100 TORR) 103 H HCO3 (21 - 28 MEQ/L) 25 ABG O2 Sat (Measured) (>96.0 %) 97.0 Carboxyhemoglobin (1.5 - 5.0 %) 1.0 L O2 Concentration % 100% O2 Delivery Method VENT Chemistry Sodium (137 - 145 mmol/L) Cancelled 137 Potassium (3.5 - 5.1 mmol/L) Cancelled 2.7 *L Chloride (98 - 107 mmol/L) Cancelled 102 Carbon Dioxide (22 - 30 mmol/L) Cancelled 14 L Anion Gap (5 - 16) Cancelled 21 H BUN (7 - 17 mg/dL) Cancelled 20 H Creatinine (0.5 - 1.0 mg/dL) Cancelled 0.8 Estimated GFR (>60 ml/min) > 60 BUN/Creatinine Ratio (7 - 25 %) 25.0 Glucose Cancelled Calcium Cancelled Phosphorus Cancelled Magnesium Cancelled Total Bilirubin Cancelled AST Cancelled ALT Cancelled Troponin I (< 0.11 ng/ml) 0.05 Albumin Cancelled Coagulation PT (9.4 - 12.5 SEC) 15.0 H INR (0.90 - 1.19) 1.43 H APTT (25 - 37 SEC) 55 H Hematology CBC w Diff Cancelled MAN DIFF ORDERED WBC (4.8 - 10.8 /CUMM) Cancelled 24.7 H RBC (4.20 - 5.40 /CUMM) Cancelled 2.56 L Hgb (12.0 - 16.0 G/DL) Cancelled 7.3 *L Hct (37 - 47 %) Cancelled 22.2 L MCV (81.0 - 99.0 FL) Cancelled 87.0 MCH (27.0 - 31.0 PG) Cancelled 28.5 RDW (11.5 - 14.5 %) Cancelled 18.9 H Plt Count (130 - 400 /CUMM) Cancelled 97 L MPV (7.4 - 10.4 FL) Cancelled 7.9 Gran % (42.2 - 75.2 %) 71.9 Lymphocytes % (20.5 - 51.1 %) 21.6 Monocytes % (1.7 - 9.3 %) 0.7 L Eosinophils % (0 - 5 %) 5.1 H Basophils % (0.0 - 2.0 %) 0.7 Absolute Granulocytes (1.4 - 6.5 /CUMM) 17.8 H Segmented Neutrophils (42.2 - 75.2 %) 57 Band Neutrophils (0.0 - 5.0 %) 7 H Absolute Lymphocytes (1.2 - 3.4 /CUMM) 5.4 H Lymphocytes (20.5 - 51.1 %) 30 Monocytes (1.7 - 9.3 %) 2 Absolute Monocytes (0.10 - 0.60 /CUMM) 0.2 Eosinophils (0 - 5.0 %) 3 Absolute Eosinophils (0.0 - 0.7 /CUMM) 1.3 Basophils (0.0 - 2.0 %) 1 Absolute Basophils (0.0 - 0.2 /CUMM) 0.2 Platelet Estimate (ADEQUATE) DECREASED Poikilocytosis 1+ Anisocytosis 2+ Microcytic Cells 1+ Ovalocytes FEW PUBS MCHC (33.0 - 37.0 G/DL) Cancelled 32.7 L Recent Imaging Studies: PATIENT: NATALEE MAXWELL PRESENT AGE: 71 PATIENT ACCOUNT NO: [id number] : 45 LOCATION: [facility] ORDERING PHYSICIAN: CHIOMA KERN MD SERVICE DATE: 06/21/16- EXAM TYPE: RAD - XRY-PORTABLE CHEST XRAY EXAMINATION: XR PORTABLE CHEST CLINICAL INFORMATION: Respiratory depression. Intubation. COMPARISON: Chest x-ray 06/21/2016, 3:57 PM TECHNIQUE: Portable frontal view of the chest was obtained. 5:50 PM FINDINGS: Endotracheal tube in position with the catheter tip about 1 cm above the lona. Left subclavian line catheter tip in superior vena cava at the cavoatrial junction. Nasogastric tube passing down into the stomach with the tip is below the margin of the film. Left chest tube at the left lung base. Lung volume is low. There is prominence of the central hilar vessels due to low inspiratory effort. There is increasing density in the retrocardiac area at the left lung base of atelectasis and/or consolidation. No pleural effusion. No pneumothorax. IMPRESSION: 1. Endotracheal tube catheter 1 cm above the lona. 2. Nasogastric tube passing into stomach. 3. Left chest tube at left lung base. No pneumothorax. 4. Central port catheter tip in superior vena cava. 5. Low lung volume with prominence of central hilar vasculature. 6. Increasing density at the left lung base of infiltrate and/or atelectasis. DICTATED BY: NICKI JOE MD DATE/TIME DICTATED:06/21/161848 BILLIARD PLAYER:SALLIE Assessment/Plan Assessment/Plan Postoperative day 0 status post left side subclavian Port-A-Cath placement, complicated by tension pneumothorax requiring advanced cardiac life support, chest tube and left groin central line, intubated in the ICU. -Repeat chest x-ray shows no pneumothorax -From a thoracic surgery standpoint patient is stable, maintain left-sided chest tube to wall suction -Repeat chest x-ray in the morning -Will follow
--- NOTE | 2016-06-21 21:07 | NUR ---
193 REC'D PT IN BED SEDATED ON PROPOFOL GTT. SR ON THE MONITOR HR 80-90'S & SBP 100-120'S CORRELATING TO ALL CUFFS. INTUBATED & ON THE KIERAN W/AC MODE 18/ VT 550/ FIO2 <80% @2044 BY RT KERON/ PEEP 5. SCANT AMT OF BLOODY SECRETIONS VIA ETT & ORALLY SUCTION/MOUTH CARE DONE. L SIDE/LATERAL CHEST TUBE TO LWS BLDY DRAINAGE IN THE TUBINGS. OGT INSITU & TO LWS NO D/C NOTED. PRESSURE DRSG TO CT INSITU. DRSG TO LCW LEVAR CATH INTACT W/DRY SANG D/C. PRESSURE DRSG TO L GROIN INTACT. L RADIAL RU INSITU & ADEQUATE WAVE ADEQUATE. UPDATED ON PT'S STATUS TO FAMILY AT BEDSIDE. CONT TO MONITOR.
[2016-06-21 21:13] LABS: ABSOLUTE BASOPHIL COUNT 0.1 /CUMM (0.0-0.2); ABSOLUTE EOSINOPHIL COUNT 0.1 /CUMM (0.0-0.7); ABSOLUTE GRANULOCYTE CT 32.4 /CUMM (1.4-6.5); ABSOLUTE LYMPH COUNT 0.8 /CUMM (1.2-3.4); ABSOLUTE MONOCYTE COUNT 1.1 /CUMM (0.10-0.60); BASOPHIL % 0.4 % (0.0-2.0); EOSINOPHIL % 0.2 % (0-5); GRANULOCYTE % 93.8 % (42.2-75.2); HEMATOCRIT 22.8 % (37-47); MEAN CORPUSCULAR HGB 28.5 PG (27.0-31.0); MEAN CORPUSCULAR HGB CONC 33.4 G/DL (33.0-37.0); MEAN CORPUSCULAR VOLUME 85.3 FL (81.0-99.0); MEAN PLATELET VOLUME 7.8 FL (7.4-10.4); PLATELET COUNT 189 /CUMM (130-400); RBC DISTRIBUTION WIDTH 18.8 % (11.5-14.5); RED BLOOD CELL CT 2.67 /CUMM (4.20-5.40)
[2016-06-21 21:19] LABS: WHITE BLOOD CELL COUNT 34.5 /CUMM (4.8-10.8)
[2016-06-22] VITALS: BP 118/68
[2016-06-22 01:04] LABS: PTT 68 SEC (25-37)
--- NOTE | 2016-06-22 03:42 | NUR ---
PT WOKE UP WHEN RT ED DID DEEP SUCTIONING VIA ETT. PT GETTING RESTLESS & NODDING YES FOR PAIN & REACHING THE ETT DESPITE HAVING RESTRAINTS. REASSURANCE & REORIENTATION GIVEN. INFORMED DR. STEPHANIE GALEAS AWARE PT'S STATUS. ORDERS GIVEN. MORPHINE 2MG IVP GIVEN SEE EMAR. AFTER 15MINS PT SETTLING DOWN. CONT TO MONITOR.
--- NOTE | 2016-06-22 05:43 | PN- Thoracic Surgery ---
Subjective Subjective: No acute events overnight. Patient is more awake and alert this morning, able to follow some commands. Objective Vital Signs and I&Os Vital Signs Date Time Temp Pulse Resp B/P B/P Pulse O2 O2 Flow FiO2 Mean Ox Delivery Rate 06/22 0408 60 06/22 0400 100 Ventilator 60% 06/22 0320 69 99/49 06/22 0201 60 06/22 0159 80 06/22 0000 97.2 68 18 118/68 100 Ventilator 80% 06/22 0000 100 Ventilator 80% 06/21 2153 80 06/21 2000 100 Ventilator 100% 06/21 1919 100 06/21 1802 98 100/55 06/21 1730 99 Ventilator 100% 06/21 1723 100 06/21 1705 96.6 101 29 100/60 99 Ventilator 100% Intake & Output 06/22 0806/22 0000 06/21 1600 06/21 0806/21 0000 06/20 1600 Intake Total 1209 Output Total 125 Balance 1084 Intake, IV 1209 Intake, Oral 0 Number 0 Bowel Movements Output, Chest 25 Tube Drainage Output, Urine 100 Patient 173 lb Weight Weight Bed scale Measurement Method Physical Exam: Well-developed well-nourished , intubated HEENT: Atraumatic, Neck: Supple, no lymphadenopathy, no tracheal deviation Respiratory: No respiratory distress, mild rhonchi noted left lung, right lung is clear. Breath sounds noted throughout all lung shipman. Left-sided chest tube in place, no leak noted, dressing with moderate amount of bloody staining and was reinforced. Extremities: No edema, Neuro: Following commands, opens eyes Skin: Warm and dry, no rash on exposed skin Results Last 48 Hours of Labs: Laboratory Tests 06/22 06/22 06/22 06/22 06/21 0354 0354 0140 0025 2048 Blood Gas pH (7.35 - 7.45 PH) 7.49 H pCO2 (35 - 45 TORR) 29 L pO2 (80 - 100 TORR) 264 H HCO3 (21 - 28 MEQ/L) 22 ABG O2 Sat (Measured) (>96.0 %) 98.0 P-50 (Temp Corrected) Y Carboxyhemoglobin (1.5 - 5.0 %) 0.3 L O2 Concentration % 80% Temperature (97.0 - 100.0 FARH) 97.2 Respiration Rate (BPM) 18 O2 Delivery Method ESPRIT Vent Mode AC Expiratory Pressure (CMH2O/P) 5 Tidal Volume (CC) 550 Chemistry Sodium Pending Potassium Pending Chloride Pending Carbon Dioxide Pending Anion Gap Pending BUN Pending Creatinine Pending Glucose Pending Lactic Acid (0.7 - 2.1 mmol/L) Pending 1.7 2.2 H Calcium Pending Phosphorus Pending Magnesium Pending Total Bilirubin Pending AST Pending ALT Pending Troponin I Pending Albumin Pending Coagulation APTT (25 - 37 SEC) 68 H Hematology CBC w Diff Pending WBC Pending RBC Pending Hgb Pending Hct Pending MCV Pending MCH Pending RDW Pending Plt Count Pending MPV Pending PUBS MCHC Pending Miscellaneous Phlebotomy Draw Site [place] 06/21 Blood Gas pH (7.35 - 7.45 PH) 7.46 H pCO2 (35 - 45 TORR) 27 L pO2 (80 - 100 TORR) 70 L HCO3 (21 - 28 MEQ/L) 19 L ABG O2 Sat (Measured) (>96.0 %) 93.0 L P-50 (Temp Corrected) Y Carboxyhemoglobin (1.5 - 5.0 %) 0.3 L O2 Concentration % 100 Temperature (97.0 - 100.0 FARH) 96.6 L Respiration Rate (BPM) 26 O2 Delivery Method VENT Vent Mode CMV Expiratory Pressure (CMH2O/P) 5 Tidal Volume (CC) 550 Chemistry Sodium (137 - 145 mmol/L) 136 L Potassium (3.5 - 5.1 mmol/L) 3.7 Chloride (98 - 107 mmol/L) 106 Carbon Dioxide (22 - 30 mmol/L) 22 Anion Gap (5 - 16) 8 BUN (7 - 17 mg/dL) 27 H Creatinine (0.5 - 1.0 mg/dL) 0.9 Estimated GFR (>60 ml/min) > 60 Glucose (65 - 99 mg/dL) 181 H Calcium (8.4 - 10.2 mg/dL) 8.2 L Phosphorus (2.5 - 4.5 mg/dL) 2.6 Magnesium (1.6 - 2.3 mg/dL) 1.8 Total Bilirubin (0.2 - 1.3 mg/dL) 0.8 AST (14 - 36 U/L) 101 H ALT (9 - 52 U/L) 110 H Troponin I (< 0.11 ng/ml) 2.55 *H Albumin (3.5 - 5.0 g/dL) 2.4 L Hematology CBC w Diff NO MAN DIFF REQ WBC (4.8 - 10.8 /CUMM) 34.5 *H RBC (4.20 - 5.40 /CUMM) 2.67 L Hgb (12.0 - 16.0 G/DL) 7.6 L Hct (37 - 47 %) 22.8 L MCV (81.0 - 99.0 FL) 85.3 MCH (27.0 - 31.0 PG) 28.5 RDW (11.5 - 14.5 %) 18.8 H Plt Count (130 - 400 /CUMM) 189 MPV (7.4 - 10.4 FL) 7.8 Gran % (42.2 - 75.2 %) 93.8 H Lymphocytes % (20.5 - 51.1 %) 2.4 L Monocytes % (1.7 - 9.3 %) 3.2 Eosinophils % (0 - 5 %) 0.2 Basophils % (0.0 - 2.0 %) 0.4 Absolute Granulocytes (1.4 - 6.5 /CUMM) 32.4 H Absolute Lymphocytes (1.2 - 3.4 /CUMM) 0.8 L Absolute Monocytes (0.10 - 0.60 /CUMM) 1.1 H Absolute Eosinophils (0.0 - 0.7 /CUMM) 0.1 Absolute Basophils (0.0 - 0.2 /CUMM) 0.1 PUBS MCHC (33.0 - 37.0 G/DL) 33.4 Miscellaneous Phlebotomy Draw Site [place] 06/21 06/21 06/21 1835 1735 1730 Chemistry Sodium (137 - 145 mmol/L) 139 Potassium (3.5 - 5.1 mmol/L) 3.2 L Chloride (98 - 107 mmol/L) 107 Carbon Dioxide (22 - 30 mmol/L) 15 L Anion Gap (5 - 16) 16 BUN (7 - 17 mg/dL) 20 H Creatinine (0.5 - 1.0 mg/dL) 0.7 Estimated GFR (>60 ml/min) > 60 Glucose (65 - 99 mg/dL) 197 H Lactic Acid (0.7 - 2.1 mmol/L) 9.8 H Calcium (8.4 - 10.2 mg/dL) 7.9 L Phosphorus (2.5 - 4.5 mg/dL) 6.0 H Magnesium (1.6 - 2.3 mg/dL) 1.5 L Total Bilirubin (0.2 - 1.3 mg/dL) 0.4 AST (14 - 36 U/L) 87 H ALT (9 - 52 U/L) 97 H Albumin (3.5 - 5.0 g/dL) 2.2 L Coagulation PT (9.4 - 12.5 SEC) 16.4 H INR (0.90 - 1.19) 1.57 H APTT (25 - 37 SEC) 44 H Hematology CBC w Diff NO MAN DIFF REQ WBC (4.8 - 10.8 /CUMM) 33.6 *H RBC (4.20 - 5.40 /CUMM) 2.60 L Hgb (12.0 - 16.0 G/DL) 7.4 *L Hct (37 - 47 %) 22.3 L MCV (81.0 - 99.0 FL) 85.8 MCH (27.0 - 31.0 PG) 28.3 RDW (11.5 - 14.5 %) 18.9 H Plt Count (130 - 400 /CUMM) 203 MPV (7.4 - 10.4 FL) 7.6 Gran % (42.2 - 75.2 %) 87.7 H Lymphocytes % (20.5 - 51.1 %) 9.7 L Monocytes % (1.7 - 9.3 %) 0.1 L Eosinophils % (0 - 5 %) 2.4 Basophils % (0.0 - 2.0 %) 0.1 Absolute Granulocytes (1.4 - 6.5 /CUMM) 29.5 H Absolute Lymphocytes (1.2 - 3.4 /CUMM) 3.3 Absolute Monocytes (0.10 - 0.60 /CUMM) 0 L Absolute Eosinophils (0.0 - 0.7 /CUMM) 0.8 Absolute Basophils (0.0 - 0.2 /CUMM) 0 PUBS MCHC (33.0 - 37.0 G/DL) 33.0 06/21 06/21 06/21 1714 1630 1618 Blood Gas pH (7.35 - 7.45 PH) 7.37 pCO2 (35 - 45 TORR) 44 pO2 (80 - 100 TORR) 103 H HCO3 (21 - 28 MEQ/L) 25 ABG O2 Sat (Measured) (>96.0 %) 97.0 Carboxyhemoglobin (1.5 - 5.0 %) 1.0 L O2 Concentration % 100% O2 Delivery Method VENT Chemistry Sodium (137 - 145 mmol/L) Cancelled 137 Potassium (3.5 - 5.1 mmol/L) Cancelled 2.7 *L Chloride (98 - 107 mmol/L) Cancelled 102 Carbon Dioxide (22 - 30 mmol/L) Cancelled 14 L Anion Gap (5 - 16) Cancelled 21 H BUN (7 - 17 mg/dL) Cancelled 20 H Creatinine (0.5 - 1.0 mg/dL) Cancelled 0.8 Estimated GFR (>60 ml/min) > 60 BUN/Creatinine Ratio (7 - 25 %) 25.0 Glucose Cancelled Calcium Cancelled Phosphorus Cancelled Magnesium Cancelled Total Bilirubin Cancelled AST Cancelled ALT Cancelled Troponin I (< 0.11 ng/ml) 0.05 Albumin Cancelled Coagulation PT (9.4 - 12.5 SEC) 15.0 H INR (0.90 - 1.19) 1.43 H APTT (25 - 37 SEC) 55 H Hematology CBC w Diff Cancelled MAN DIFF ORDERED WBC (4.8 - 10.8 /CUMM) Cancelled 24.7 H RBC (4.20 - 5.40 /CUMM) Cancelled 2.56 L Hgb (12.0 - 16.0 G/DL) Cancelled 7.3 *L Hct (37 - 47 %) Cancelled 22.2 L MCV (81.0 - 99.0 FL) Cancelled 87.0 MCH (27.0 - 31.0 PG) Cancelled 28.5 RDW (11.5 - 14.5 %) Cancelled 18.9 H Plt Count (130 - 400 /CUMM) Cancelled 97 L MPV (7.4 - 10.4 FL) Cancelled 7.9 Gran % (42.2 - 75.2 %) 71.9 Lymphocytes % (20.5 - 51.1 %) 21.6 Monocytes % (1.7 - 9.3 %) 0.7 L Eosinophils % (0 - 5 %) 5.1 H Basophils % (0.0 - 2.0 %) 0.7 Absolute Granulocytes (1.4 - 6.5 /CUMM) 17.8 H Segmented Neutrophils (42.2 - 75.2 %) 57 Band Neutrophils (0.0 - 5.0 %) 7 H Absolute Lymphocytes (1.2 - 3.4 /CUMM) 5.4 H Lymphocytes (20.5 - 51.1 %) 30 Monocytes (1.7 - 9.3 %) 2 Absolute Monocytes (0.10 - 0.60 /CUMM) 0.2 Eosinophils (0 - 5.0 %) 3 Absolute Eosinophils (0.0 - 0.7 /CUMM) 1.3 Basophils (0.0 - 2.0 %) 1 Absolute Basophils (0.0 - 0.2 /CUMM) 0.2 Platelet Estimate (ADEQUATE) DECREASED Poikilocytosis 1+ Anisocytosis 2+ Microcytic Cells 1+ Ovalocytes FEW PUBS MCHC (33.0 - 37.0 G/DL) Cancelled 32.7 L Assessment/Plan Assessment/Plan Postoperative day 1 status post left side subclavian Port-A-Cath placement, complicated by tension pneumothorax requiring advanced cardiac life support, chest tube and left groin central line, intubated in the ICU. -Repeat chest x-ray this morning -From a thoracic surgery standpoint patient is stable, maintain left-sided chest tube to wall suction -ween off vent per critical care team -Follow labs this morning -Will follow
[2016-06-22 05:53] LABS: ABSOLUTE BASOPHIL COUNT 0 /CUMM (0.0-0.2); ABSOLUTE EOSINOPHIL COUNT 0 /CUMM (0.0-0.7); ABSOLUTE GRANULOCYTE CT 29.3 /CUMM (1.4-6.5); ABSOLUTE LYMPH COUNT 1.3 /CUMM (1.2-3.4); BASOPHIL % 0.1 % (0.0-2.0); EOSINOPHIL % 0 % (0-5); GRANULOCYTE % 92.4 % (42.2-75.2); HEMATOCRIT 25.6 % (37-47); MEAN CORPUSCULAR HGB 28.9 PG (27.0-31.0); MEAN CORPUSCULAR VOLUME 84.8 FL (81.0-99.0); MEAN PLATELET VOLUME 8.4 FL (7.4-10.4); PLATELET COUNT 156 /CUMM (130-400); RBC DISTRIBUTION WIDTH 17.6 % (11.5-14.5); RED BLOOD CELL CT 3.02 /CUMM (4.20-5.40)
[2016-06-22 06:09] LABS: WHITE BLOOD CELL COUNT 31.7 /CUMM (4.8-10.8)
--- NOTE | 2016-06-22 06:18 | PN- Resident CRCU ---
Subjective HPI/CRCU Issues: Mrs Jauregui was seen and examined this morning. She is resting in bed. She continues to be intubated. She is able to follow verbal commands and was able to communicate via pen and paper. She does endorse pain. Pain is more prominent in the left side, at the area of chest tube insertion. She denies any fever, chills. She does express that she would like to have something to drink. I explaained that we will attempt this once she has been extubated. Her Mr Jauregui and sister in law and brother in law were present for part of the enrounter. Objective Vital Signs & I&O Last 8 Hrs of Vitals and I&O: T: 96.6-97.5 HR: 64-101 Rhythm: NSR Resp:18-30 BP: 96/45-130/68 SAS: 2-5 Urine Output: SI:100 SII:400 Exam General Appearance: alert, sedated, intubated Head: atraumatic Respiratory: normal breath sounds Cardiovascular: regular rate/rhythm Gastrointestinal: soft, non-tender, Hypoactive Bowel Sounds Extremities: normal inspection, normal capillary refill, normal range of motion Cranial Nerves: normal hearing Skin: intact Skin Temp/Moisture Exam: Warm/Dry Current Medications: Current Medications Sig/Rafaela Start time Last Medication Dose Route Stop Time Status Admin Ampicillin Sodium/ 3,000 MG Q6H 06/22 0400 AC 06/22 Sulbactam Sodium IV 0341 Sodium Chloride 100 ML Ampicillin Sodium/ 3,000 MG Q6 06/21 1904 DC 06/21 Sulbactam Sodium IV 2212 Sodium Chloride 100 ML Ampicillin Sodium/ 1,500 MG Q6 06/21 1800 DC Sulbactam Sodium IV Sodium Chloride 100 ML Fentanyl Citrate 100 MCG .STK-MED ONE 06/21 1414 DC IM 06/21 1415 Heparin Sodium 25,000 UNIT Q24H 06/21 1730 AC 06/21 (Porcine) IV 1742 Sodium Chloride 500 ML Heparin Sodium/ 25,000 UNIT .STK-MED ONE 06/21 1733 DC Dextrose IV 06/21 1734 Lorazepam 2 MG ONE 06/21 1915 DC 06/21 IV 06/21 1916 1917 Magnesium Sulfate 1 GM ONCE ONE 06/21 191 DC 06/21 Dextrose/Water 100 ML IV 06/21 2314 1952 Midazolam HCl 4 MG .STK-MED ONE 06/21 1656 DC IM 06/21 1657 Midazolam HCl 2 MG .STK-MED ONE 06/21 1415 DC IM 06/21 1416 Morphine Sulfate 4 MG ONCE ONE 06/22 0515 DC 06/22 IV 06/22 0516 0518 Morphine Sulfate 2 MG Q4P PRN 06/22 0245 AC 06/22 IV 0254 Non-Formulary 0 SEE ADMIN CRITERIA 06/21 1730 CAN Medication ANY Norepinephrine 4 MG Q24H 06/21 1800 AC 06/22 Sodium Chloride 250 ML IV 0320 Pantoprazole Sodium 40 MG Q5H 06/21 1815 CAN Sodium Chloride 100 ML IV Pantoprazole Sodium 40 MG DAILY 06/21 1815 AC 06/21 IV 1844 Potassium Chloride 20 MEQ ONCE ONE 06/21 1815 DC 06/21 IV 06/21 181 1845 Potassium Chloride 20 MEQ Q13H 06/21 1815 AC 06/21 Sodium Chloride 1,000 ML IV 1916 Potassium Chloride 20 MEQ ONCE ONE 06/21 1730 DC 06/21 IV 06/21 1731 1740 Propofol 1,000 MG Q6H 06/22 0300 AC 06/22 N/A 100 ML IV 0241 Propofol 1,000 MG CONTINOUS INFUSION 06/21 1845 DC 06/22 N/A 100 ML IV 0241 Propofol 1,000 MG .STK-MED ONE 06/21 1724 DC IV 06/21 1725 Sodium Chloride 500 ML BOLUS ONE 06/21 2245 DC 06/21 IV 06/21 2344 2257 Sodium Chloride 1,000 ML Q13H 06/21 1730 DC 06/21 IV 1741 Vasopressin 40 UNITS Q16H 06/21 1800 AC 06/22 Sodium Chloride 100 ML IV 0321 Impression/Plan Impression/Problem List Impression: Ms Jauregui is a 71-year-old female with past medical history of Colon Cancer s /p several weeks post robotic right colectomy and GERD who had [facility] for placement of a left Port-A-Cath. Following the procedure, the patient experienced cardiac arrest likely as a result of a tension pneumothorax. She is currently admitted to the intensive care unit for further management. She is currently intubated and below are her ventilation settings. Rate: 18 Peak flow: 65 PEEP: 5 TV: 550 % O2: 100 PSV: 6 Alvarado: Day Two Femoral line: Day Two Respiratory Status post incision and placement of chest tube, left lung reexpanded. No evidence of hemothorax. Repeat chest x-ray showed no pneumothorax. Chest X-Ray this AM, shows improved aeration. We are treating the patient empirically for aspiration pneumonia. She is currently on Unasyn 3000 mg every 6. CBC elevated. Patient is currently afebrile. CBC likely reactive versus infective. Will repeat CBC in the a.m. Patient responded well to 1 Unit PRBC. Repeat CBC on 06/22, did show a further drop, patient had to be transfused an additional unit. Chest tube management as per surgery. We are also empirically treating the patient on IV heparin as per PE/DVT protocol. Should the patient's respiratory status deteriorates overnight consider a CTA stat to rule out pulmonary embolism. May consider discontinuing Heparin if no evidence of PE. Repeat chest x-ray in a.m. as patient is intubated. Morphine 2mg Q4PRN, IV for pain relief. Cardiovascular Cardiogenic shock requiring pressors and aggressive fluid hydration. Currently on levophed. Maintain mean arterial pressure above 65 mm/hg. Titrate need for pressors accordingly. Monitor the patient for any ventricular tachycardias. If further ventricular tachycardia is noted May consider amiodarone. Initial lactic acid 9.8. Increased lactic acid likely due to hypoperfusion. We will repeat troponins on 06/23, to rule out any cardiac pathology. Repeat echocardiogram also ordered for 06/22. Hematology Patient's H&H this am: 8.7/25.6, repeat 6.8/20.4. Patient's revealed last H&H was 11/23. We have obtained consent and will transfuse an additional unit. Maintain H&H above 7. Repeat CBC in a.m. Metabolic Patient K: 4.3. Target range above 4.0. Repeat BEP in a.m. Renal BUN to creatinine ratio 28.57. Likely due to hypoperfusion. Repeat BEP in a.m. Continue aggressive hydration, fluids @100ml/hr. DVT prophylaxis Heparin Code FC Problem List: 1. Tension pneumothorax, spontaneous 2. Endotracheally intubated 3. Cardiac arrest 4. Cardiocirculatory collapse 5. Pulmonary embolism Pain Ratin Tomorrow's Labs & Rationales: CBC ICU Bundle C-Xray (due to intubation) Plan DVT/Prophylaxis: pharmacological
[2016-06-22 08:00] VITALS: BP 94/52
--- NOTE | 2016-06-22 08:33 | PN- General Surgery ---
Surgical Brief Attending Note Brief Attending Note: Pt seen and examined. She is awake and alert, weaning off sedation prior to possible extubation. She has been started on heparin gtt and Unasyn for prophylaxis of aspiration PNA. Critical Care, Cardiology, and Thoracic surgery inputs are appreciated. Chest tube management per Dr. Go. Will cont. to follow.
--- NOTE | 2016-06-22 09:07 | RADIOLOGY REPORT ---
EXAMINATION: XR PORTABLE CHEST CLINICAL INFORMATION: 71-year-old female with cardiac arrest. Status post intubation. COMPARISON: Chest done on 06/21/2016. TECHNIQUE: Portable frontal view of the chest was obtained. FINDINGS: The tip of endotracheal tube is located approximately 2.8 cm above the level of the lona. The enteric tube tip is located below the level of the diaphragm with its tip not included within the [id number]. There is a left subclavian Port-A-Cath identified, the tip is projecting at the cavoatrial junction. There is persistent retrocardiac airspace disease present with interval improved aeration at left lung base and left perihilar region. The right lung field is clear. The cardiomediastinal silhouette is within normal limits. Compared to prior study, there is improved aeration noted bilaterally. No other significant change. No new abnormalities. IMPRESSION: The tip of the endotracheal tube is located approximately 2.8 cm above the level of the lona. Improved aeration within both lung shipman since prior study dated 06/21/2016.
--- NOTE | 2016-06-22 10:02 | PN- CRCU ---
Subjective HPI/Critical Care Issues: The patient is awake and alert. She remains on mechanical ventilation. She has ongoing pain but is feeling better overall. There were no overnight events. Objective Current Medications: Current Medications Sig/Rafaela Start time Last Medication Dose Route Stop Time Status Admin Ampicillin Sodium/ 3,000 MG Q6H 06/22 0400 AC 06/22 Sulbactam Sodium IV 0341 Sodium Chloride 100 ML Ampicillin Sodium/ 3,000 MG Q6 06/21 1904 DC 06/21 Sulbactam Sodium IV 2212 Sodium Chloride 100 ML Ampicillin Sodium/ 1,500 MG Q6 06/21 1800 DC Sulbactam Sodium IV Sodium Chloride 100 ML Fentanyl Citrate 100 MCG .STK-MED ONE 06/21 1414 DC IM 06/21 1415 Heparin Sodium 25,000 UNIT Q24H 06/21 1730 AC 06/21 (Porcine) IV 1742 Sodium Chloride 500 ML Heparin Sodium/ 25,000 UNIT .STK-MED ONE 06/21 1733 DC Dextrose IV 06/21 1734 Lorazepam 2 MG ONE ONE 06/21 1915 DC 06/21 IV 06/21 1916 1917 Magnesium Sulfate 1 GM ONCE ONE 06/21 1915 DC 06/21 Dextrose/Water 100 ML IV 06/21 2314 1952 Midazolam HCl 4 MG .STK-MED ONE 06/21 1656 DC IM 06/21 1657 Midazolam HCl 2 MG .STK-MED ONE 06/21 1415 DC IM 06/21 1416 Morphine Sulfate 2 MG ONCE ONE 06/22 0915 DC IV 06/22 0916 Morphine Sulfate 2 MG ONCE ONE 06/22 0830 DC 06/22 IV 06/22 0831 0800 Morphine Sulfate 4 MG ONCE ONE 06/22 0515 DC 06/22 IV 06/22 0516 0518 Morphine Sulfate 2 MG Q4P PRN 06/22 0245 AC 06/22 IV 0254 Non-Formulary 0 SEE ADMIN CRITERIA 06/21 1730 CAN Medication ANY Norepinephrine 4 MG Q24H 06/21 1800 AC 06/22 Sodium Chloride 250 ML IV 0320 Pantoprazole Sodium 40 MG Q5H 06/21 181 CAN Sodium Chloride 100 ML IV Pantoprazole Sodium 40 MG DAILY 06/21 1815 AC 06/21 IV 1844 Potassium Chloride 20 MEQ ONCE ONE 06/21 1815 DC 06/21 IV 06/21 181 1845 Potassium Chloride 20 MEQ Q13H 06/21 1815 AC 06/22 Sodium Chloride 1,000 ML IV 0858 Potassium Chloride 20 MEQ ONCE ONE 06/21 1730 DC 06/21 IV 06/21 1731 1740 Propofol 1,000 MG Q6H 06/22 0300 AC 06/22 N/A 100 ML IV 0241 Propofol 1,000 MG CONTINOUS INFUSION 06/21 1845 DC 06/22 N/A 100 ML IV 0241 Propofol 1,000 MG .STK-MED ONE 06/21 1724 DC IV 06/21 1725 Sodium Chloride 500 ML BOLUS ONE 06/21 2245 DC 06/21 IV 06/21 2344 2257 Sodium Chloride 1,000 ML Q13H 06/21 1730 DC 06/21 IV 1741 Vasopressin 40 UNITS Q16H 06/21 1800 AC 06/22 Sodium Chloride 100 ML IV 0321 Vital Signs & I&O Last 24 Hrs of Vitals and I&O: Vital Signs Date Time Temp Pulse Resp B/P B/P Pulse O2 O2 Flow FiO2 Mean Ox Delivery Rate 06/22 0903 40 06/22 0702 45 06/22 0658 60 06/22 0408 60 06/22 0400 100 Ventilator 60% 06/22 0320 69 99/49 06/22 0201 60 06/22 0159 80 06/22 0000 97.2 68 18 118/68 100 Ventilator 80% 06/22 0000 100 Ventilator 80% 06/21 2153 80 06/21 2000 100 Ventilator 100% 06/21 1919 100 06/21 1802 98 100/55 06/21 1730 99 Ventilator 100% 06/21 1723 100 06/21 1705 96.6 101 29 100/60 99 Ventilator 100% Intake & Output 06/22 1600 06/22 0800 06/22 0000 Intake Total 2165 3309 Output Total 435 125 Balance 1730 3184 Intake, Blood 350 Product Intake, IV 1815 3309 Intake, Oral 0 0 Number 0 0 Bowel Movements Output, Chest 25 25 Tube Drainage Output, 10 0 Gastric Drainage Output, Urine 400 100 Patient 173 lb Weight Weight Bed scale Measurement Method Physical Exam: Gen: The patient is in no acute distress HEENT: Normal nose, ears, and oropharynx. Pupils equal bilaterally. Conjunctiva normal. Neck: Supple with no JVD, no masses, and no thyromegaly Lungs: Normal breath sounds on the ventilator with decreased respiratory effort Heart: RRR, S1, S2, no murmurs. No peripheral edema, 1+ pulses in the lower extremities bilaterally Abdomen: Soft, nontender, no masses. No hepatomegaly. No splenomegaly Extremities: No clubbing or cyanosis. Normal muscle strength in the upper and lower extremities Skin: Normal skin turgor with no skin ulcers or lesions noted. Results Last 24 Hrs of Lab Results: Laboratory Tests 06/22/16 0750: Lactic Acid Pending 06/22/16 06: pH 7.44, pCO2 31 L, pO2 173 H, HCO3 21, ABG O2 Sat (Measured) 98.0, P-50 (Temp Corrected) Y, Carboxyhemoglobin 0.3 L, O2 Concentration % 60%, Temperature 97.1 , Respiration Rate 14, O2 Delivery Method ESPRIT, Vent Mode AC, Expiratory Pressure 5, Tidal Volume 550, Phlebotomy Draw Site [place] 06/22/16 035: Troponin I 2.17 *H 06/22/16 035: Anion Gap 12, Estimated GFR 49 L, Glucose 162 H, Lactic Acid 3.0 H, Calcium 8.1 L, Phosphorus 4.2, Magnesium 1.8, Total Bilirubin 1.0, AST 86 H, ALT 100 H, Albumin 2.6 L, CBC w Diff MAN DIFF ORDERED, RBC 3.02 L, MCV 84.8, MCH 28.9, RDW 17.6 H, MPV 8.4, Gran % 92.4 H, Lymphocytes % 4.2 L, Monocytes % 3.3, Eosinophils % 0, Basophils % 0.1, Absolute Granulocytes 29.3 H, Segmented Neutrophils 88 H, Band Neutrophils 1, Absolute Lymphocytes 1.3, Lymphocytes 4 L, Monocytes 7, Absolute Monocytes 1.0 H, Absolute Eosinophils 0, Absolute Basophils 0, Platelet Estimate ADEQUATE, Polychromasia 1+, Poikilocytosis 2+, Basophilic Stippling RARE, Ovalocytes 1+, Anastasiia Cells 1+, Elliptocytes FEW, PUBS MCHC 34.0, Fld Total RBCs Counted 100 06/22/16 0140: pH 7.49 H, pCO2 29 L, pO2 264 H, HCO3 22, ABG O2 Sat (Measured) 98.0, P-50 ( Temp Corrected) Y, Carboxyhemoglobin 0.3 L, O2 Concentration % 80%, Temperature 97.2, Respiration Rate 18, O2 Delivery Method ESPRIT, Vent Mode AC, Expiratory Pressure 5, Tidal Volume 550, Phlebotomy Draw Site [place] 06/22/16 0025: Lactic Acid 1.7, APTT 68 H 06/21/162048: Lactic Acid 2.2 H 06/21/162048: Anion Gap 8, Estimated GFR > 60, Glucose 181 H, Calcium 8.2 L, Phosphorus 2.6, Magnesium 1.8, Total Bilirubin 0.8, AST 101 H, ALT 110 H, Troponin I 2.55 *H, Albumin 2.4 L, CBC w Diff NO MAN DIFF REQ, RBC 2.67 L, MCV 85.3, MCH 28.5, RDW 18.8 H, MPV 7.8, Gran % 93.8 H, Lymphocytes % 2.4 L, Monocytes % 3.2, Eosinophils % 0.2, Basophils % 0.4, Absolute Granulocytes 32.4 H, Absolute Lymphocytes 0.8 L, Absolute Monocytes 1.1 H, Absolute Eosinophils 0.1, Absolute Basophils 0.1, PUBS MCHC 33.4 06/21/16 1840: pH 7.46 H, pCO2 27 L, pO2 70 L, HCO3 19 L, ABG O2 Sat (Measured) 93.0 L, P- 50 (Temp Corrected) Y, Carboxyhemoglobin 0.3 L, O2 Concentration % 100, Temperature 96.6 L, Respiration Rate 26, O2 Delivery Method VENT, Vent Mode CMV , Expiratory Pressure 5, Tidal Volume 550, Phlebotomy Draw Site [place] 06/21/16 1835: CBC w Diff NO MAN DIFF REQ, RBC 2.60 L, MCV 85.8, MCH 28.3, RDW 18.9 H, MPV 7.6, Gran % 87.7 H, Lymphocytes % 9.7 L, Monocytes % 0.1 L, Eosinophils % 2.4 , Basophils % 0.1, Absolute Granulocytes 29.5 H, Absolute Lymphocytes 3.3, Absolute Monocytes 0 L, Absolute Eosinophils 0.8, Absolute Basophils 0, PUBS MCHC 33.0 06/21/16 1735: Anion Gap 16, Estimated GFR > 60, Glucose 197 H, Calcium 7.9 L, Phosphorus 6.0 H, Magnesium 1.5 L, Total Bilirubin 0.4, AST 87 H, ALT 97 H, Albumin 2.2 L, PT 16.4 H, INR 1.57 H, APTT 44 H 06/21/16 1730: Lactic Acid 9.8 H 06/21/16 1714: Sodium Cancelled, Potassium Cancelled, Chloride Cancelled, Carbon Dioxide Cancelled, Anion Gap Cancelled, BUN Cancelled, Creatinine Cancelled, Glucose Cancelled, Calcium Cancelled, Phosphorus Cancelled, Magnesium Cancelled, Total Bilirubin Cancelled, AST Cancelled, ALT Cancelled, Albumin Cancelled, CBC w Diff Cancelled, WBC Cancelled, RBC Cancelled, Hgb Cancelled, Hct Cancelled, MCV Cancelled, MCH Cancelled, RDW Cancelled, Plt Count Cancelled, MPV Cancelled, PUBS MCHC Cancelled 06/21/16 1630: Anion Gap 21 H, Estimated GFR > 60, BUN/Creatinine Ratio 25.0, Troponin I 0.05, PT 15.0 H, INR 1.43 H, APTT 55 H, CBC w Diff MAN DIFF ORDERED, RBC 2.56 L, MCV 87.0, MCH 28.5, RDW 18.9 H, MPV 7.9, Gran % 71.9, Lymphocytes % 21.6, Monocytes % 0.7 L, Eosinophils % 5.1 H, Basophils % 0.7, Absolute Granulocytes 17.8 H, Segmented Neutrophils 57, Band Neutrophils 7 H, Absolute Lymphocytes 5.4 H, Lymphocytes 30, Monocytes 2, Absolute Monocytes 0.2, Eosinophils 3, Absolute Eosinophils 1.3, Basophils 1, Absolute Basophils 0.2, Platelet Estimate DECREASED, Poikilocytosis 1+, Anisocytosis 2+, Microcytic Cells 1+, Ovalocytes FEW, PUBS MCHC 32.7 L 06/21/16 1618: pH 7.37, pCO2 44, pO2 103 H, HCO3 25, ABG O2 Sat (Measured) 97.0, Carboxyhemoglobin 1.0 L, O2 Concentration % 100%, O2 Delivery Method VENT Diagnostic Data CXR Findings: The tip of the endotracheal tube is located approximately 2.8 cm above the level of the lona. Improved aeration within both lung shipman since prior study dated 06/21/2016. Impression/Plan Impression/Plan Impression/Plan: 1. Postoperative cardiac arrest. Possible tension pneumothorax. Possible pulmonary embolism. 2. Wide-complex tachycardia, possible ventricular tachycardia seen during code. 3. Normal left tubular function and normal RV function seen on echocardiogram. 4. [id number] tricuspid regurgitation. Recommendations: * IV heparin for possible pulmonary embolism to continue. * We'll attempt to do a CTA if the patient's renal function continues to be stable. * Attempt to wean levophed down to off if able. * Continue IVF resuscitation for adeqate I&Os, urine out put. * Follow-up cultures. * Continue empiric IV Unasyn. * Discontinue all sedation. * Continue with electrolyte repletion. * Continue Ventilator bundle. * Monitor for ventricular tachycardia. May consider giving amiodarone if further significant ventricular tachycardia is noted
--- NOTE | 2016-06-22 12:35 | PN- Cardiology ---
Subjective Subjective: The patient is awake and alert but remains intubated with chest tube in place. She complains bitterly of left chest discomfort which is worse with motion and respiration as well as palpation. Weaning trials ongoing. Objective Vital Signs and I&Os Vital Signs Date Time Temp Pulse Resp B/P B/P Pulse O2 O2 Flow FiO2 Mean Ox Delivery Rate 06/22 1157 40 06/22 0903 40 06/22 0800 96 Ventilator 40% 06/22 0800 97.5 70 19 94/52 96 Ventilator 40% 06/22 0702 45 06/22 0658 60 06/22 0408 60 06/22 0400 100 Ventilator 60% 06/22 0320 69 99/49 06/22 0201 60 06/22 0159 80 06/22 0000 97.2 68 18 118/68 100 Ventilator 80% 06/22 0000 100 Ventilator 80% 06/21 2153 80 06/21 2000 100 Ventilator 100% 06/21 1919 100 06/21 1802 98 100/55 06/21 1730 99 Ventilator 100% 06/21 1723 100 06/21 1705 96.6 101 29 100/60 99 Ventilator 100% Intake & Output 06/22 1600 06/22 0800 06/22 0000 06/21 1600 06/21 0800 06/21 0000 Intake Total 2165 1209 2100 Output Total 435 125 0 Balance 1730 1084 2100 Intake, Blood 350 Product Intake, IV 1815 1209 2100 Intake, Oral 0 0 Number 0 0 0 Bowel Movements Output, Chest 25 25 0 Tube Drainage Output, 10 0 Gastric Drainage Output, Urine 400 100 0 Patient 173 lb Weight Weight Bed scale Measurement Method Physical Exam: General: The patient is in no acute distress; alert; intubated HEENT: Normal Neck: Supple with no JVD, no masses, and no thyromegaly, carotids normal bilaterally Lungs: Clear bilaterally Heart: RRR, S1, S2, no murmurs. Abdomen: Soft, nontender, no masses. No hepatomegaly. No splenomegaly Extremities: No clubbing or cyanosis. No edema. Skin: Normal Neuro: non focal Vascular: Pulses are 2+ and equal bilaterally Current Medications: Current Medications Sig/Rafaela Start time Last Medication Dose Route Stop Time Status Admin Ampicillin Sodium/ 3,000 MG Q6H 06/22 0400 AC 06/22 Sulbactam Sodium IV 1020 Sodium Chloride 100 ML Ampicillin Sodium/ 3,000 MG Q6 06/21 1904 DC 06/21 Sulbactam Sodium IV 2212 Sodium Chloride 100 ML Ampicillin Sodium/ 1,500 MG Q6 06/21 1800 DC Sulbactam Sodium IV Sodium Chloride 100 ML Fentanyl Citrate 100 MCG .STK-MED ONE 06/21 1414 DC IM 06/21 1415 Heparin Sodium 25,000 UNIT Q24H 06/21 1730 AC 06/21 (Porcine) IV 1742 Sodium Chloride 500 ML Heparin Sodium/ 25,000 UNIT .STK-MED ONE 06/21 1733 DC Dextrose IV 06/21 1734 Lorazepam 2 MG ONE ONE 06/21 1915 DC 06/21 IV 06/21 1916 1917 Magnesium Sulfate 1 GM ONCE ONE 06/21 191 DC 06/21 Dextrose/Water 100 ML IV 06/21 2314 1952 Midazolam HCl 4 MG .STK-MED ONE 06/21 1656 DC IM 06/21 1657 Midazolam HCl 2 MG .STK-MED ONE 06/21 1415 DC IM 06/21 1416 Morphine Sulfate 2 MG ONCE ONE 06/22 0915 DC 06/22 IV 06/22 0916 0915 Morphine Sulfate 2 MG ONCE ONE 06/22 0830 DC 06/22 IV 06/22 0831 0800 Morphine Sulfate 4 MG ONCE ONE 06/22 0515 DC 06/22 IV 06/22 0516 0518 Morphine Sulfate 2 MG Q4P PRN 06/22 0245 AC 06/22 IV 0254 Non-Formulary 0 SEE ADMIN CRITERIA 06/21 1730 CAN Medication ANY Norepinephrine 4 MG Q24H 06/21 1800 AC 06/22 Sodium Chloride 250 ML IV 0320 Ondansetron HCl 4 MG ONCE ONE 06/22 1215 DC 06/22 IV 06/22 1216 1204 Pantoprazole Sodium 40 MG Q5H 06/21 1815 CAN Sodium Chloride 100 ML IV Pantoprazole Sodium 40 MG DAILY 06/21 1815 AC 06/22 IV 1020 Potassium Chloride 20 MEQ ONCE ONE 06/21 1815 DC 06/21 IV 06/21 1816 1845 Potassium Chloride 20 MEQ Q13H 06/21 1815 AC 06/22 Sodium Chloride 1,000 ML IV 0858 Potassium Chloride 20 MEQ ONCE ONE 06/21 1730 DC 06/21 IV 06/21 1731 1740 Propofol 1,000 MG Q6H 06/22 0300 DC 06/22 N/A 100 ML IV 0241 Propofol 1,000 MG .STK-MED ONE 06/22 0230 DC IV 06/22 0231 Propofol 1,000 MG CONTINOUS INFUSION 06/21 1845 DC 06/22 N/A 100 ML IV 0241 Propofol 1,000 MG .STK-MED ONE 06/21 1724 DC IV 06/21 1725 Sodium Chloride 250 ML BOLUS ONE 06/22 1245 AC IV 06/22 1344 Sodium Chloride 250 ML BOLUS ONE 06/22 1115 DC 06/22 IV 06/22 1214 1115 Sodium Chloride 250 ML BOLUS ONE 06/22 1015 DC 06/22 IV 06/22 1114 1015 Sodium Chloride 500 ML BOLUS ONE 06/21 2245 DC 06/21 IV 06/21 2344 2257 Sodium Chloride 1,000 ML Q13H 06/21 1730 DC 06/21 IV 1741 Vasopressin 40 UNITS Q16H 06/21 1800 AC 06/22 Sodium Chloride 100 ML IV 0321 Results Last 48 Hrs of Labs/Mics: Laboratory Tests 06/22/16 0750: Lactic Acid 1.6 06/22/16 0630: pH 7.44, pCO2 31 L, pO2 173 H, HCO3 21, ABG O2 Sat (Measured) 98.0, P-50 (Temp Corrected) Y, Carboxyhemoglobin 0.3 L, O2 Concentration % 60%, Temperature 97.1 , Respiration Rate 14, O2 Delivery Method ESPRIT, Vent Mode AC, Expiratory Pressure 5, Tidal Volume 550, Phlebotomy Draw Site [place] 06/22/16353: Troponin I 2.17 *H 06/22/16 0354: Anion Gap 12, Estimated GFR 49 L, Glucose 162 H, Lactic Acid 3.0 H, Calcium 8.1 L, Phosphorus 4.2, Magnesium 1.8, Total Bilirubin 1.0, AST 86 H, ALT 100 H, Albumin 2.6 L, CBC w Diff MAN DIFF ORDERED, RBC 3.02 L, MCV 84.8, MCH 28.9, RDW 17.6 H, MPV 8.4, Gran % 92.4 H, Lymphocytes % 4.2 L, Monocytes % 3.3, Eosinophils % 0, Basophils % 0.1, Absolute Granulocytes 29.3 H, Segmented Neutrophils 88 H, Band Neutrophils 1, Absolute Lymphocytes 1.3, Lymphocytes 4 L, Monocytes 7, Absolute Monocytes 1.0 H, Absolute Eosinophils 0, Absolute Basophils 0, Platelet Estimate ADEQUATE, Polychromasia 1+, Poikilocytosis 2+, Basophilic Stippling RARE, Ovalocytes 1+, [place] Cells 1+, Elliptocytes FEW, PUBS MCHC 34.0, Fld Total RBCs Counted 100 06/22/16 0140: pH 7.49 H, pCO2 29 L, pO2 264 H, HCO3 22, ABG O2 Sat (Measured) 98.0, P-50 ( Temp Corrected) Y, Carboxyhemoglobin 0.3 L, O2 Concentration % 80%, Temperature 97.2, Respiration Rate 18, O2 Delivery Method ESPRIT, Vent Mode AC, Expiratory Pressure 5, Tidal Volume 550, Phlebotomy Draw Site [place] 06/22/16 0025: Lactic Acid 1.7, APTT 68 H 06/21/162048: Lactic Acid 2.2 H 06/21/162048: Anion Gap 8, Estimated GFR > 60, Glucose 181 H, Calcium 8.2 L, Phosphorus 2.6, Magnesium 1.8, Total Bilirubin 0.8, AST 101 H, ALT 110 H, Troponin I 2.55 *H, Albumin 2.4 L, CBC w Diff NO MAN DIFF REQ, RBC 2.67 L, MCV 85.3, MCH 28.5, RDW 18.8 H, MPV 7.8, Gran % 93.8 H, Lymphocytes % 2.4 L, Monocytes % 3.2, Eosinophils % 0.2, Basophils % 0.4, Absolute Granulocytes 32.4 H, Absolute Lymphocytes 0.8 L, Absolute Monocytes 1.1 H, Absolute Eosinophils 0.1, Absolute Basophils 0.1, PUBS MCHC 33.4 06/21/16 1840: pH 7.46 H, pCO2 27 L, pO2 70 L, HCO3 19 L, ABG O2 Sat (Measured) 93.0 L, P- 50 (Temp Corrected) Y, Carboxyhemoglobin 0.3 L, O2 Concentration % 100, Temperature 96.6 L, Respiration Rate 26, O2 Delivery Method VENT, Vent Mode CMV , Expiratory Pressure 5, Tidal Volume 550, Phlebotomy Draw Site [place] 06/21/16 1835: CBC w Diff NO MAN DIFF REQ, RBC 2.60 L, MCV 85.8, MCH 28.3, RDW 18.9 H, MPV 7.6, Gran % 87.7 H, Lymphocytes % 9.7 L, Monocytes % 0.1 L, Eosinophils % 2.4 , Basophils % 0.1, Absolute Granulocytes 29.5 H, Absolute Lymphocytes 3.3, Absolute Monocytes 0 L, Absolute Eosinophils 0.8, Absolute Basophils 0, [facility] MCHC 33.0 06/21/16 1735: Anion Gap 16, Estimated GFR > 60, Glucose 197 H, Calcium 7.9 L, Phosphorus 6.0 H, Magnesium 1.5 L, Total Bilirubin 0.4, AST 87 H, ALT 97 H, Albumin 2.2 L, PT 16.4 H, INR 1.57 H, APTT 44 H 06/21/16 1730: Lactic Acid 9.8 H 06/21/16 1714: Sodium Cancelled, Potassium Cancelled, Chloride Cancelled, Carbon Dioxide Cancelled, Anion Gap Cancelled, BUN Cancelled, Creatinine Cancelled, Glucose Cancelled, Calcium Cancelled, Phosphorus Cancelled, Magnesium Cancelled, Total Bilirubin Cancelled, AST Cancelled, ALT Cancelled, Albumin Cancelled, CBC w Diff Cancelled, WBC Cancelled, RBC Cancelled, Hgb Cancelled, Hct Cancelled, MCV Cancelled, MCH Cancelled, RDW Cancelled, Plt Count Cancelled, MPV Cancelled, PUBS MCHC Cancelled 06/21/16 1630: Anion Gap 21 H, Estimated GFR > 60, BUN/Creatinine Ratio 25.0, Troponin I 0.05, PT 15.0 H, INR 1.43 H, APTT 55 H, CBC w Diff MAN DIFF ORDERED, RBC 2.56 L, MCV 87.0, MCH 28.5, RDW 18.9 H, MPV 7.9, Gran % 71.9, Lymphocytes % 21.6, Monocytes % 0.7 L, Eosinophils % 5.1 H, Basophils % 0.7, Absolute Granulocytes 17.8 H, Segmented Neutrophils 57, Band Neutrophils 7 H, Absolute Lymphocytes 5.4 H, Lymphocytes 30, Monocytes 2, Absolute Monocytes 0.2, Eosinophils 3, Absolute Eosinophils 1.3, Basophils 1, Absolute Basophils 0.2, Platelet Estimate DECREASED, Poikilocytosis 1+, Anisocytosis 2+, Microcytic Cells 1+, Ovalocytes FEW, PUBS MCHC 32.7 L 06/21/16 1618: pH 7.37, pCO2 44, pO2 103 H, HCO3 25, ABG O2 Sat (Measured) 97.0, Carboxyhemoglobin 1.0 L, O2 Concentration % 100%, O2 Delivery Method VENT Assessment/Plan Assessment/Plan Assessment: 1. Postoperative cardiac arrest. Possible tension pneumothorax. Possible pulmonary embolism. 2. Persistent left chest discomfort - Likely multifactorial (Chest tube; post compression: etc) 3. Elevated troponin - 2.17; followup pending; demand vs NSTEMI 4. Wide-complex tachycardia, possible ventricular tachycardia seen during code 5. Normal left ventricular function and normal RV function seen on echocardiogram 6. Leukocytosis Recommendations: - COntinue all supportive care as per the ICU team - Weaning trials ongoing - Trend troponin until decreasing - ECG today and again in AM - Full followup echo tomorrow to reassess LV function, wall motion and RV systolic pressure. - Chest tube per CTS - Keep on monitor; no arrhythmias detected since arrival in ICU - Continue IV heparin for now.s - The patient's LV function is normal. Continue IV fluid resuscitation in the hope of further weaning pressor agents - I/Os with maintenance of slightly positive fluid balance - Continue antibiotics pending culture results Continue telemetry? Yes
[2016-06-22 14:29] LABS: ABSOLUTE BASOPHIL COUNT 0 /CUMM (0.0-0.2); ABSOLUTE EOSINOPHIL COUNT 0 /CUMM (0.0-0.7); ABSOLUTE GRANULOCYTE CT 16.5 /CUMM (1.4-6.5); ABSOLUTE LYMPH COUNT 1.8 /CUMM (1.2-3.4); BASOPHIL % 0.2 % (0.0-2.0); EOSINOPHIL % 0.2 % (0-5); MEAN CORPUSCULAR HGB 28.6 PG (27.0-31.0); MEAN CORPUSCULAR HGB CONC 33.5 G/DL (33.0-37.0); MEAN CORPUSCULAR VOLUME 85.5 FL (81.0-99.0); MEAN PLATELET VOLUME 8.6 FL (7.4-10.4); PLATELET COUNT 106 /CUMM (130-400); RBC DISTRIBUTION WIDTH 18.3 % (11.5-14.5); RED BLOOD CELL CT 2.39 /CUMM (4.20-5.40); WHITE BLOOD CELL COUNT 19.4 /CUMM (4.8-10.8)
[2016-06-22 14:47] LABS: PTT 94 SEC (25-37)
[2016-06-22 14:54] LABS: HEMATOCRIT 20.4 % (37-47)
[2016-06-22 15:05] LABS: GRANULOCYTE % 85.2 % (42.2-75.2)
[2016-06-22 16:00] VITALS: BP 105/53
--- NOTE | 2016-06-22 16:47 | Event Note ---
Event Note Event Note: chest tube site bleeding, which may be contributing to anemia. pleurovac with less than 100 mls of bloody drainage. this is the 2nd saturated dressing change by myself today, but this later time it had also pooled underneath her. single stitch placed around the chest tube site and dressing changed recommend holding the heparin drip transfuse blood as needed patient seen and discussed with
--- NOTE | 2016-06-22 18:47 | NUR ---
SHIFT NOTE 7A TO 7P PT HAS BEEN MOSTLY ALERT THROUGH OUT SHIFT, WRITING NEEDS AND QUESTIONS, MOVING ALL EXTREMETIES, + PULSES X 4. PERRL 2MM. PT BECOMES DROWSEY WHEN MEDICATED W MSO4 FOR PAIN, BUT STILL ABLE TO FOLLOW COMMANDS AND ASK QUESTIONS APPROPRIATELY. WHEN GIVEN ATIVAN, PT BECAME INCREASINGLY DROWSEY, AROUSABLE, BUT WITH NOXIOUS STIMULI. PT REMAINS IN A NSR 60-80'S, BP SUPPORTED WITH LEVOPHED AND VASOPRESSIN AND NS VOLUS 250 X 3. . VASOPRESSIN CURRENTLY OFF AND LEVOPHED OFF THEN BACK ON, CURRENTLY AT 2MCG/MINUTE. BP SUSTAINED OVER 90 SBP CURRENTLY. PT NOTED TO BE BLEEDING HEAVILY FROM CHEST TUBE SITE AND SURGICAL PA WAS CALLED. DRESSING SATURATED, SURGICAL PA - RACHEL TO BEDSIDE TO ASSESS AND CHANGE DRESSING. THIS HAPPENED A SECOND TIME, CREATING A POOLED BLOOD IN THE BED. HOUSE STAFF MADE AWARE, RACHEL RETURNED TO ASSESS, PROVIDE EXTRA STICHING TO SITE AND CHANGE DRESSING, AWARE THAT CT PUT OUT ONLY 10CC/8 HRS TO PLEURVAC. HEMAL CASEY AND MARILIN NOTIFIED. DR CASEY TO BEDSIDE, ORDERED HEPARIN TO BE DC'D AND DISCUSSED EVENT/POC WITH FAMILY. SERIAL CBC'S AND LACTIC ACIDS DRAWN. PT GIVEN 1 UNIT PRBC PER H/H RESULT. HERNANDEZ CATH REMAINS INSITU WITH MINIMAL CLOUDY URINE; 250CC/[address] TABARES NOTIFIED. FAMILY REMAINED UPDATED THROUGHOUT SHIFT AND EMOTIONAL SUPPORT GIVEN THROUGHOUT SHIFT.
[2016-06-22 20:42] LABS: ABSOLUTE BASOPHIL COUNT 0 /CUMM (0.0-0.2); ABSOLUTE EOSINOPHIL COUNT 0 /CUMM (0.0-0.7); ABSOLUTE GRANULOCYTE CT 17.2 /CUMM (1.4-6.5); ABSOLUTE LYMPH COUNT 1.8 /CUMM (1.2-3.4); BASOPHIL % 0.2 % (0.0-2.0); EOSINOPHIL % 0.1 % (0-5); HEMATOCRIT 20.8 % (37-47); MEAN CORPUSCULAR HGB 28.3 PG (27.0-31.0); MEAN CORPUSCULAR VOLUME 83.2 FL (81.0-99.0); MEAN PLATELET VOLUME 7.9 FL (7.4-10.4); PLATELET COUNT 145 /CUMM (130-400); RBC DISTRIBUTION WIDTH 19.3 % (11.5-14.5); WHITE BLOOD CELL COUNT 20.1 /CUMM (4.8-10.8)
[2016-06-22 20:48] LABS: GRANULOCYTE % 85.6 % (42.2-75.2)
[2016-06-22 20:59] LABS: PTT 29 SEC (25-37)
[2016-06-23] VITALS: BP 115/54
[2016-06-23 05:28] LABS: ABSOLUTE BASOPHIL COUNT 0.1 /CUMM (0.0-0.2); ABSOLUTE EOSINOPHIL COUNT 0.3 /CUMM (0.0-0.7); ABSOLUTE GRANULOCYTE CT 16.6 /CUMM (1.4-6.5); ABSOLUTE LYMPH COUNT 1.4 /CUMM (1.2-3.4); ABSOLUTE MONOCYTE COUNT 0.8 /CUMM (0.10-0.60); BASOPHIL % 0.4 % (0.0-2.0); EOSINOPHIL % 1.5 % (0-5); MEAN CORPUSCULAR HGB 28.1 PG (27.0-31.0); MEAN CORPUSCULAR HGB CONC 33.2 G/DL (33.0-37.0); MEAN CORPUSCULAR VOLUME 84.6 FL (81.0-99.0); MEAN PLATELET VOLUME 8.2 FL (7.4-10.4); PLATELET COUNT 160 /CUMM (130-400); RBC DISTRIBUTION WIDTH 18.3 % (11.5-14.5); WHITE BLOOD CELL COUNT 19.1 /CUMM (4.8-10.8)
--- NOTE | 2016-06-23 05:43 | PN- Thoracic Surgery ---
See Addendum Subjective Subjective: bleeding has slowed at chest tube site currently remains intubated resting comfortably awake alert, writing on pad to communicate no major events overnight Objective Vital Signs and I&Os Vital Signs Date Time Temp Pulse Resp B/P B/P Pulse O2 O2 Flow FiO2 Mean Ox Delivery Rate 06/23 0400 35 06/23 0135 35 06/23 0000 97.8 82 14 115/54 99 Ventilator 35% 06/23 0000 99 Ventilator 35% 06/22 2234 35 06/22 2000 81 114/59 06/23 1999 98 Ventilator 35% 06/22 1950 35 06/22 1645 40 06/22 1600 98.0 74 14 105/53 98 Ventilator 40% 06/22 1600 97 Ventilator 40% 06/22 1425 40 06/22 1200 97 Ventilator 40% 06/22 1157 40 06/22 0903 40 06/22 0800 96 Ventilator 40% 06/22 0800 97.5 70 19 94/52 96 Ventilator 40% 06/22 0702 45 06/22 0658 60 Intake & Output 06/23 0800 06/23 0000 06/22 1600 06/22 0800 06/22 0000 06/21 1600 Intake Total 869 1535 2165 1209 2100 Output Total 370 260 435 125 0 Balance 499 1275 1730 1084 2100 Intake, Blood 350 Product Intake, IV 869 1535 1815 1209 2100 Intake, Oral 0 0 0 0 Intake, Other 0 Number 0 0 0 0 0 Bowel Movements Output, Chest 70 10 25 25 0 Tube Drainage Output, 0 0 10 0 Gastric Drainage Output, Urine 300 250 400 100 0 Patient 173 lb Weight Weight Bed scale Measurement Method Physical Exam: cv: rrr lungs: clear throughout abd: soft, +bs ext: no edema, distal cms intact chest tube: no leak sanguinous drainage overnight has slowed Assessment/Plan Assessment/Plan chest tube stable no air leak less output plan f/u am cxr/labs will d/w attending Core Measures/Miscellaneous Venous Thromboembolism VTE Risk Factors: Age > 40, Surgery VTE Contraindications: No Contraindications No Pharm VTE Prophylaxis D/T: Active Bleeding VTE Diagnosis: No VTE Type: NONE VTE Confirmed by (Test): NONE Beta Douglas Is Beta Douglas a Home Med? No Antibiotics Is Patient on Antibiotics? Yes If Yes: prophylaxis
[2016-06-23 06:05] LABS: GRANULOCYTE % 86.8 % (42.2-75.2)
--- NOTE | 2016-06-23 06:17 | PN- Resident CRCU ---
Subjective HPI/CRCU Issues: Ms Jauregui was seen and examined this morning she is resting comfortably in bed. She is alert and oriented x 3. Although currently intubated, she is able to communicate via pen and paper. She continues to endorse pain across the anterior chest and into the left rib. Pain is rated 8 out of 10. Worse at the site of the chest tube insertion. She denies any fever, chills, nausea, vomiting. 24 Hour Events: Heparin Was discontinued owing to bleeding from chest tube. Patient was transfused one unit PRBC. Objective Vital Signs & I&O Last 8 Hrs of Vitals and I&O: T: 97.7-98.0 HR: 70-86 NSR RR: 14-22 BP: 80/37-116/54 SI:250 SII: 300 SIII: 400 Exam General Appearance: well developed/nourished, alert, awake, anxious, comfortable , intubated Head: normal appearance Respiratory: normal breath sounds, chest non-tender, no respiratory distress, Chest Tube in Place, Left Cardiovascular: regular rate/rhythm Gastrointestinal: normal bowel sounds, soft, non-tender Extremities: normal inspection, normal capillary refill Cranial Nerves: normal hearing, PERRL Skin: intact, normal color, warm/dry Skin Temp/Moisture Exam: Warm/Dry Current Medications: Current Medications Sig/Rafaela Start time Last Medication Dose Route Stop Time Status Admin Acetaminophen 1,000 MG Q8P PRN 06/23 0845 UNVr N/A 1 UNIT IV Ampicillin Sodium/ 3,000 MG Q6H 06/22 0400 AC 06/23 Sulbactam Sodium IV 0348 Sodium Chloride 100 ML Heparin Sodium 25,000 UNIT Q24H 06/21 1730 DC 06/22 (Porcine) IV 1504 Sodium Chloride 500 ML Hydromorphone HCl 0.6 MG Q4P PRN 06/23 0815 AC IV Lorazepam 1 MG Q4P PRN 06/22 1700 AC 06/22 IV 1711 Morphine Sulfate 4 MG ONCE ONE 06/22 1600 DC 06/22 IV 06/22 1601 1600 Morphine Sulfate 2 MG ONCE ONE 06/22 0915 DC 06/22 IV 06/22 0916 0915 Morphine Sulfate 2 MG Q4P PRN 06/22 0245 AC 06/23 IV 0438 Norepinephrine 4 MG Q24H 06/21 1800 DC 06/22 Sodium Chloride 250 ML IV 2000 Ondansetron HCl 4 MG ONCE ONE 06/23 0845 UNVr IV 06/23 0846 Ondansetron HCl 4 MG ONCE ONE 06/22 1215 DC 06/22 IV 06/22 1216 1204 Pantoprazole Sodium 40 MG DAILY 06/21 1815 AC 06/22 IV 1020 Potassium Chloride 20 MEQ Q13H 06/21 1815 DC 06/23 Sodium Chloride 1,000 ML IV 0523 Propofol 1,000 MG Q6H 06/22 0300 DC 06/22 N/A 100 ML IV 0241 Sodium Chloride 1,000 ML Q10H 06/23 0745 r IV Sodium Chloride 250 ML BOLUS ONE 06/22 1245 DC 06/22 IV 06/22 1344 1245 Sodium Chloride 250 ML BOLUS ONE 06/22 1115 DC 06/22 IV 06/22 1214 1115 Sodium Chloride 250 ML BOLUS ONE 06/22 1015 DC 06/22 IV 06/22 1114 1015 Vasopressin 40 UNITS Q16H 06/21 1800 DC 06/22 Sodium Chloride 100 ML IV 0321 Impression/Plan Impression/Problem List Impression: Ms Jauregui is a 71-year-old female with past medical history of Colon Cancer s /p several weeks post robotic right colectomy and GERD who had presented to [facility] on 06/21/2016 for placement of a left Port-A-Cath. Following the procedure, the patient experienced cardiac arrest likely as a result of a tension pneumothorax. She is currently admitted to the intensive care unit for further management. She is currently intubated and below are her ventilation settings. Rate: 14 Peak flow: 55 PEEP: 5 TV: 550 % O2: 35 Alvarado: Day three Femoral line: Day Three Post Operative Cardiac Arrest tension pnemothorax during insertion of port-a- cath Status post incision and placement of chest tube, left lung reexpanded. No evidence of hemothorax. Chest tube management as per surgery. May be able to be pulled this afternoon. Heparin discontinued 06/22/2016. Morphine 2mg Q4PRN, IV for pain relief. Aspiration Pneumonia We are treating the patient empirically for aspiration pneumonia. She is currently on Unasyn 3000 mg Q6. WBC 17.1 Chest pain due to chest tube insertion and recent chest compressions Patient has been off pressors. Monitor the patient for any ventricular tachycardias. If further ventricular tachycardia is noted may consider amiodarone. Initial lactic acid 9.8. Increased lactic acid likely due to hypoperfusion. Troponins: 0.44. Repeat echocardiogram also ordered for 06/23. Acute blood loss Anemia. Patient's H&H this am: 7.3/22.0. Patient's revealed last H&H was 11/23. Consent obtained. The patient did have one transfusion on 06/22/2016. Patient had to have one additional unit of PRBCs this a.m. We will repeat a CBC status post transfusion. Maintain H&H above 8. Repeat CBC 06/23/2016 Hypokalemia, #Resolved Patient K: 4.4. Target range above 4.0. Repeat BEP in a.m. KUNAL, Due to hypoperfusion. BUN to creatinine ratio 21.42 Likely due to hypoperfusion. Repeat BEP in a.m. Continue aggressive hydration, fluids @100ml/hr. DVT prophylaxis Heparin Code FC Problem List: 1. Tension pneumothorax, spontaneous 2. Endotracheally intubated 3. Cardiac arrest 4. Cardiocirculatory collapse Pain Ratin Tomorrow's Labs & Rationales: CBC ICU Bundle Plan DVT/Prophylaxis: pharmacological DVT/Prophylaxis: pharmacological ICU Bundle Plan DVT/Prophylaxis: pharmacological
[2016-06-23 08:00] VITALS: BP 129/57
--- NOTE | 2016-06-23 08:19 | NUR ---
PT ALERT, COMMUNICATING VIA WRITING, NO APPEARANT NEURO DEFICETS. NSR ON THE MONITOR, BP MAINTAINED OFF PRESSORS, SBP 110-120S. REMAINS INTUBATED ON 35 %. C/0 PAIN AND NAUSEA. DISCUSSED WITH DR GARCIA. AWAITING ORDERS. 4TH UNIT OF PRBC INFUSING. HERNANDEZ AND CHEST TUBE REMAIN INSITU. IVF CHANGED TO NS/100 HR.
--- NOTE | 2016-06-23 09:26 | RADIOLOGY REPORT ---
EXAMINATION: XR PORTABLE CHEST CLINICAL INFORMATION: Atelectasis. Left-sided chest tube. Follow-up exam. COMPARISON: Chest x-ray dated 06/22/2016, 06/21/2016. TECHNIQUE: Portable AP supine view of the chest was obtained. FINDINGS: Endotracheal tube tip is 2 cm above the lona. Enteric tube is seen coursing into the abdomen but tip extending beyond the confines of the film into the upper abdomen. Left-sided chest tube is seen extending medially in the left lung base, unchanged. There is a left-sided Port-A-Cath in place with tip in the mid SVC, unchanged. The cardiomediastinal silhouette is within normal limits in size. There is increased opacity seen in the retrocardiac left lung base with obscuration of the left hemidiaphragm and the left CP angle, similar to the previous exam. There is central vascular congestion and increased reticular opacities is seen in the medial right lung base and in the perihilar regions bilaterally, unchanged. Bony structures are unremarkable. IMPRESSION: 1. Endotracheal tube tip 2 cm above the lona. 2. Enteric tube, left-sided chest tube, and left subclavian Port-A-Cath in place as discussed above. 3. Slight progression in retrocardiac opacity, likely a combination of small volume fluid and associated lung consolidation. 4. No significant change in perihilar and medial right lung base opacities, possibly due to vascular congestion and atelectasis. Clinical correlation requested.
--- NOTE | 2016-06-23 09:31 | NUR ---
PT MEDICATED WITH TYLENOL IV, DILAUDID 0.6 AND ZOFRAN AND STARTED ON WEAN TRIAL. TOLERATING WELL THUS FAR.
--- NOTE | 2016-06-23 09:32 | NUR ---
ECHO AT BEDSIDE
--- NOTE | 2016-06-23 12:14 | PN- Cardiology ---
Subjective Subjective: The patient was extubated at 11:40 AM, and is evaluated immediately after extubation. She denies any current shortness of breath. She notes discomfort at the site of her chest tube. She reports mild sharp pain with inspiration. No lightheadedness or dizziness. No diaphoresis. No nausea or vomiting. Heparin was discontinued secondary to bleeding from chest tube site. She was noted yesterday to have a positive troponin Objective Vital Signs and I&Os Vital Signs Date Time Temp Pulse Resp B/P B/P Pulse O2 O2 Flow FiO2 Mean Ox Delivery Rate 06/23 08 35 06/23 0800 97.6 79 14 129/57 97 Ventilator 35% 06/23 0800 97 Ventilator 35% 06/23 0608 35 06/23 0400 35 06/23 0400 97 Ventilator 35% 06/23 0135 35 06/23 0000 97.8 82 14 115/54 99 Ventilator 35% 06/23 0000 99 Ventilator 35% 06/22 2234 35 06/22 2000 81 114/59 06/23 1999 98 Ventilator 35% 06/22 1950 35 06/22 1645 40 06/22 1600 98.0 74 14 105/53 98 Ventilator 40% 06/22 1600 97 Ventilator 40% 06/22 1425 40 Intake & Output 06/23 1600 06/23 0800 06/23 0000 06/22 1600 06/22 0800 06/22 0000 Intake Total 0204 800 4658 2165 3309 Output Total 510 370 260 435 125 Balance 789 714 3890 1730 3184 Intake, Blood 350 350 Product Intake, IV 298 352 9711 1815 3309 Intake, Oral 0 0 0 0 0 Intake, Other 0 0 Number 0 0 0 0 0 Bowel Movements Output, Chest 110 70 10 25 25 Tube Drainage Output, 0 0 0 10 0 Gastric Drainage Output, Urine 400 300 250 400 100 Patient 173 lb 173 lb Weight Weight Bed scale Measurement Method Physical Exam: Gen: The patient is in no acute distress HEENT: Normal nose, ears, and oropharynx. Pupils equal bilaterally. Conjunctiva normal. Neck: Supple with no JVD, no masses, and no thyromegaly Lungs: Clear to auscultation with normal respiratory effort. Chest tube is in place. Heart: RRR, S1, S2, no murmurs. No peripheral edema, 2+ pulses in the lower extremities bilaterally Abdomen: Soft, nontender, no masses. No hepatomegaly. No splenomegaly Extremities: No clubbing or cyanosis. Normal muscle strength in the upper and lower extremities Skin: Normal skin turgor with no skin ulcers or lesions noted. Neuro: Cranial nerves intact. Sensation intact Psych: Alert and oriented 3 with appropriate affect Results Last 48 Hrs of Labs/Mics: Laboratory Tests 06/23/16 1115: pH 7.39, pCO2 34 L, pO2 75 L, HCO3 21, ABG O2 Sat (Measured) 94.0 L, P-50 ( Temp Corrected) NO, Carboxyhemoglobin 0.7 L, O2 Concentration % 35%, Temperature 98.1, O2 Delivery Method T PIECE, Phlebotomy Draw Site LR A-LINE 06/23/16 0413: Anion Gap 10, Estimated GFR 37 L, Glucose 97, Calcium 7.1 L, Phosphorus 4.4, Magnesium 1.9, Total Bilirubin 1.9 H, AST 33, ALT 64 H, Troponin I 0.44 *H, Albumin 2.2 L, CBC w Diff NO MAN DIFF REQ, RBC 2.60 L, MCV 84.6, MCH 28.1, RDW 18.3 H, MPV 8.2, Gran % 86.8 H, Lymphocytes % 7.1 L, Monocytes % 4.2, Eosinophils % 1.5, Basophils % 0.4, Absolute Granulocytes 16.6 H, Absolute Lymphocytes 1.4, Absolute Monocytes 0.8 H, Absolute Eosinophils 0.3, Absolute Basophils 0.1, PUBS MCHC 33.2 06/22/16 2017: APTT 29, CBC w Diff NO MAN DIFF REQ, RBC 2.50 L, MCV 83.2, MCH 28.3, RDW 19.3 H, MPV 7.9, Gran % 85.6 H, Lymphocytes % 9.2 L, Monocytes % 4.9, Eosinophils % 0.1, Basophils % 0.2, Absolute Granulocytes 17.2 H, Absolute Lymphocytes 1.8, Absolute Monocytes 1.0 H, Absolute Eosinophils 0, Absolute Basophils 0, PUBS MCHC 34.0 06/22/16 1310: Lactic Acid 0.8, APTT 94 H, CBC w Diff NO MAN DIFF REQ, RBC 2.39 L, MCV 85.5, MCH 28.6, RDW 18.3 H, MPV 8.6, Gran % 85.2 H, Lymphocytes % 9.4 L, Monocytes % 5.0, Eosinophils % 0.2, Basophils % 0.2, Absolute Granulocytes 16.5 H, Absolute Lymphocytes 1.8, Absolute Monocytes 1.0 H, Absolute Eosinophils 0, Absolute Basophils 0, PUBS MCHC 33.5 06/22/16 0750: Lactic Acid 1.6 06/22/16 0630: pH 7.44, pCO2 31 L, pO2 173 H, HCO3 21, ABG O2 Sat (Measured) 98.0, P-50 (Temp Corrected) Y, Carboxyhemoglobin 0.3 L, O2 Concentration % 60%, Temperature 97.1 , Respiration Rate 14, O2 Delivery Method ESPRIT, Vent Mode AC, Expiratory Pressure 5, Tidal Volume 550, Phlebotomy Draw Site [place] 06/22/16 0354: Troponin I 2.17 *H 06/22/16 035: Anion Gap 12, Estimated GFR 49 L, Glucose 162 H, Lactic Acid 3.0 H, Calcium 8.1 L, Phosphorus 4.2, Magnesium 1.8, Total Bilirubin 1.0, AST 86 H, ALT 100 H, Albumin 2.6 L, CBC w Diff MAN DIFF ORDERED, RBC 3.02 L, MCV 84.8, MCH 28.9, RDW 17.6 H, MPV 8.4, Gran % 92.4 H, Lymphocytes % 4.2 L, Monocytes % 3.3, Eosinophils % 0, Basophils % 0.1, Absolute Granulocytes 29.3 H, Segmented Neutrophils 88 H, Band Neutrophils 1, Absolute Lymphocytes 1.3, Lymphocytes 4 L, Monocytes 7, Absolute Monocytes 1.0 H, Absolute Eosinophils 0, Absolute Basophils 0, Platelet Estimate ADEQUATE, Polychromasia 1+, Poikilocytosis 2+, Basophilic Stippling RARE, Ovalocytes 1+, [place] Cells 1+, Elliptocytes FEW, PUBS MCHC 34.0, Fld Total RBCs Counted 100 06/22/16 0140: pH 7.49 H, pCO2 29 L, pO2 264 H, HCO3 22, ABG O2 Sat (Measured) 98.0, P-50 ( Temp Corrected) Y, Carboxyhemoglobin 0.3 L, O2 Concentration % 80%, Temperature 97.2, Respiration Rate 18, O2 Delivery Method ESPRIT, Vent Mode AC, Expiratory Pressure 5, Tidal Volume 550, Phlebotomy Draw Site [place] 06/22/16 0025: Lactic Acid 1.7, APTT 68 H 06/21/162048: Lactic Acid 2.2 H 06/21/162048: Anion Gap 8, Estimated GFR > 60, Glucose 181 H, Calcium 8.2 L, Phosphorus 2.6, Magnesium 1.8, Total Bilirubin 0.8, AST 101 H, ALT 110 H, Troponin I 2.55 *H, Albumin 2.4 L, CBC w Diff NO MAN DIFF REQ, RBC 2.67 L, MCV 85.3, MCH 28.5, RDW 18.8 H, MPV 7.8, Gran % 93.8 H, Lymphocytes % 2.4 L, Monocytes % 3.2, Eosinophils % 0.2, Basophils % 0.4, Absolute Granulocytes 32.4 H, Absolute Lymphocytes 0.8 L, Absolute Monocytes 1.1 H, Absolute Eosinophils 0.1, Absolute Basophils 0.1, PUBS MCHC 33.4 06/21/16 184: pH 7.46 H, pCO2 27 L, pO2 70 L, HCO3 19 L, ABG O2 Sat (Measured) 93.0 L, P- 50 (Temp Corrected) Y, Carboxyhemoglobin 0.3 L, O2 Concentration % 100, Temperature 96.6 L, Respiration Rate 26, O2 Delivery Method VENT, Vent Mode CMV , Expiratory Pressure 5, Tidal Volume 550, Phlebotomy Draw Site [place] 06/21/16 1835: CBC w Diff NO MAN DIFF REQ, RBC 2.60 L, MCV 85.8, MCH 28.3, RDW 18.9 H, MPV 7.6, Gran % 87.7 H, Lymphocytes % 9.7 L, Monocytes % 0.1 L, Eosinophils % 2.4 , Basophils % 0.1, Absolute Granulocytes 29.5 H, Absolute Lymphocytes 3.3, Absolute Monocytes 0 L, Absolute Eosinophils 0.8, Absolute Basophils 0, PUBS MCHC 33.0 06/21/161734: Anion Gap 16, Estimated GFR > 60, Glucose 197 H, Calcium 7.9 L, Phosphorus 6.0 H, Magnesium 1.5 L, Total Bilirubin 0.4, AST 87 H, ALT 97 H, Albumin 2.2 L, PT 16.4 H, INR 1.57 H, APTT 44 H 04/25/17 1730: Lactic Acid 9.8 H 06/21/16 1714: Sodium Cancelled, Potassium Cancelled, Chloride Cancelled, Carbon Dioxide Cancelled, Anion Gap Cancelled, BUN Cancelled, Creatinine Cancelled, Glucose Cancelled, Calcium Cancelled, Phosphorus Cancelled, Magnesium Cancelled, Total Bilirubin Cancelled, AST Cancelled, ALT Cancelled, Albumin Cancelled, CBC w Diff Cancelled, WBC Cancelled, RBC Cancelled, Hgb Cancelled, Hct Cancelled, MCV Cancelled, MCH Cancelled, RDW Cancelled, Plt Count Cancelled, MPV Cancelled, PUBS MCHC Cancelled 06/21/16 1630: Anion Gap 21 H, Estimated GFR > 60, BUN/Creatinine Ratio 25.0, Troponin I 0.05, PT 15.0 H, INR 1.43 H, APTT 55 H, CBC w Diff MAN DIFF ORDERED, RBC 2.56 L, MCV 87.0, MCH 28.5, RDW 18.9 H, MPV 7.9, Gran % 71.9, Lymphocytes % 21.6, Monocytes % 0.7 L, Eosinophils % 5.1 H, Basophils % 0.7, Absolute Granulocytes 17.8 H, Segmented Neutrophils 57, Band Neutrophils 7 H, Absolute Lymphocytes 5.4 H, Lymphocytes 30, Monocytes 2, Absolute Monocytes 0.2, Eosinophils 3, Absolute Eosinophils 1.3, Basophils 1, Absolute Basophils 0.2, Platelet Estimate DECREASED, Poikilocytosis 1+, Anisocytosis 2+, Microcytic Cells 1+, Ovalocytes FEW, PUBS MCHC 32.7 L 06/21/16 1618: pH 7.37, pCO2 44, pO2 103 H, HCO3 25, ABG O2 Sat (Measured) 97.0, Carboxyhemoglobin 1.0 L, O2 Concentration % 100%, O2 Delivery Method VENT Microbiology 06/21 1734 UPPER RESP: Surveillance Culture - COMP 06/21 1734 GI: Surveillance Culture - COMP Recent Imaging Studies: Lower extremity Doppler study: The left common femoral vein and proximal superficial femoral vein cannot be imaged due to the patient's bandage. There is otherwise no evidence of DVT in the right or left lower extremity.. Limited portable study Chest x-ray: 1. Endotracheal tube tip 2 cm above the lona. 2. Enteric tube, left-sided chest tube, and left subclavian Port-A-Cath in place as discussed above. 3. Slight progression in retrocardiac opacity, likely a combination of small volume fluid and associated lung consolidation. 4. No significant change in perihilar and medial right lung base opacities, possibly due to vascular congestion and atelectasis. Clinical correlation requested. Echocardiogram: Normal left ventricular size and systolic function. Left ventricular ejection fraction is estimated at >60 %. [id number] tricuspid regurgitation. No evidence of pulmonary hypertension. Normal right ventricular size and function. EKG tracing is independently reviewed, and reveals normal sinus rhythm at 77, normal EKG Assessment/Plan Assessment/Plan Assessment: 1. Postoperative cardiac arrest, likely secondary to tension pneumothorax 2. Chest discomfort, likely secondary to chest tube and recent chest compressions 3. Positive troponin, likely demand ischemia. No evidence at this time of non- ST elevation myocardial infarction 4. Wide complex tachycardia noted during code, no recurrence Plan: * Repeat echocardiogram to evaluate for new wall motion allergies given positive troponin * Chest tube as per CT surgery * Empiric antibiotics * Continue cardiac monitoring * Continue all supportive care Critical Care Time: 38 minutes Continue telemetry? Yes
--- NOTE | 2016-06-23 13:04 | NUR ---
PT HAD WEAN AND TPIECE TRIAL, ABG DRAWN AND PT EXTUBATED AT 1141. PT REMAINS ON 4L NC O2 SAT 96%+. CHEST TUBE REMAINS ON WATER SEAL, AWAITING CXR. BEDSIDE SWALLOW EVALUATION PERFORMED BY . PT STARTED ON LIQUID DIET. REPEAT CBC DRAWN AWAITING RESULTS.
[2016-06-23 13:30] LABS: ABSOLUTE BASOPHIL COUNT 0.1 /CUMM (0.0-0.2); ABSOLUTE EOSINOPHIL COUNT 0.4 /CUMM (0.0-0.7); ABSOLUTE GRANULOCYTE CT 14.6 /CUMM (1.4-6.5); ABSOLUTE LYMPH COUNT 1.1 /CUMM (1.2-3.4); ABSOLUTE MONOCYTE COUNT 0.8 /CUMM (0.10-0.60); BASOPHIL % 0.6 % (0.0-2.0); EOSINOPHIL % 2.1 % (0-5); GRANULOCYTE % 85.8 % (42.2-75.2); HEMATOCRIT 23.3 % (37-47); MEAN CORPUSCULAR HGB 28.3 PG (27.0-31.0); MEAN CORPUSCULAR HGB CONC 33.9 G/DL (33.0-37.0); MEAN CORPUSCULAR VOLUME 83.5 FL (81.0-99.0); MEAN PLATELET VOLUME 8.2 FL (7.4-10.4); PLATELET COUNT 192 /CUMM (130-400); RBC DISTRIBUTION WIDTH 18.1 % (11.5-14.5)
--- NOTE | 2016-06-23 14:22 | RADIOLOGY REPORT ---
EXAMINATION: XR PORTABLE CHEST CLINICAL INFORMATION: Chest tube placed to waterseal at 9:45 AM. Evaluate for pneumothorax. COMPARISON: Several prior chest x-rays, most recent of which is dated 06/23/2016. TECHNIQUE: Portable AP semierect view of the chest was obtained. FINDINGS: The endotracheal tube and enteric tube have been removed in the interim. Left-sided chest tube is unchanged in position at the left lung base with tip extending medially, similar in position to prior exam. Left subclavian catheter is in the proximal SVC. No pneumothorax is seen. There is no interval change in dense retrocardiac left lung base opacity, likely representing dense consolidation. Small left-sided pleural effusion is seen. Central vascular congestion remains and there is some patchy parenchymal opacity medially in the right lung base, likely representing atelectasis. There is a mild convex right thoracic scoliosis with multilevel mild vertebral spondylosis. IMPRESSION: 1. No pneumothorax seen status post placement of left-sided chest tube to waterseal. 2. No significant change in dense consolidation or atelectasis in retrocardiac left lung base. Associated small left pleural effusion is suspected. 3. No change in positioning of left-sided chest tube or left subclavian central venous line.
--- NOTE | 2016-06-23 15:08 | NUR ---
PT MEDICATED WITH DILAUDID AND CHEST TUBE REMOVED BY SURG PA CA HUMPHREY. PT REMAINS ON 3L NC AT 92 %.
[2016-06-23 16:00] VITALS: BP 116/54
--- NOTE | 2016-06-23 20:15 | ECHOCARDIOGRAM REPORT ---
NATALEE MAXWELL Age: 71 : 1945 Gender: F Exam Date: 06/23/2016 09:30 Exam Location: [facility] Ht (in): 64 Wt (lb): 173 BSA: 1.91 BP: 124 / 56 Ordering Physician: BIENVENIDO TABARES MD Referring Physician: BIENVENIDO TABARES MD Technologist: Mahad Badillo [facility] Room Number: 108 Indications: ACUTE PULMONARY EMBOLISM Rhythm: Sinus Technical Quality: Technically difficult study FINDINGS Left Ventricle Normal size left ventricle. Normal left ventricular wall thickness. Normal left ventricular ejection fraction visually estimated at >60 %. Normal left ventricular wall motion. Right Ventricle Normal right ventricular size and function. Right Atrium Normal right atrial size. Left Atrium Normal left atrial size. Mitral Valve Mild mitral annular calcification. Mitral valve thickened. Trace mitral regurgitation. Aortic Valve Aortic valve is mildly thickened. No aortic stenosis. No aortic regurgitation. Tricuspid Valve Tricuspid valve not well visualized, grossly normal. Trace tricuspid regurgitation. No evidence of pulmonary hypertension. Pulmonic Valve Pulmonic valve not well visualized, grossly normal. Pericardium No pericardial effusion. Great Vessels Normal size aortic root. Mild atherosclerotic plaque is seen is the ascending aorta. CONCLUSIONS Normal left ventricular ejection fraction visually estimated at >60 Trace mitral regurgitation. Trace tricuspid regurgitation. No evidence of pulmonary hypertension. Nacho Jackman M.D. (Electronically Signed) Final Date: 23 June 2016 20:15 MEASUREMENTS (Male / Female) Normal Values 2D ECHO LV Diastolic Diameter PLAX 4.7 cm 4.2 - 5.9 / 3.9 - 5.3 cm LV Systolic Diameter PLAX 1.8 cm 2.1 - 4.0 cm LV Fractional Shortening PLAX 61.7 % 25 - 46 % LV Ejection Fraction 2D Teich 90.5 % IVS Diastolic Thickness 1.0 cm LVPW Diastolic Thickness 0.9 cm LV Relative Wall Thickness 0.4 RV Internal Dim ED PLAX 3.1 cm 1.9 - 3.8 cm LVOT Diameter 1.8 cm Aortic Root Diameter 2.3 cm LA Systolic Diameter LX 3.8 cm 3.0 - 4.0 / 2.7 - 3.8 cm Ascending Aorta Diameter 3.2 cm DOPPLER AV Peak Velocity 167.0 cm/s AV Peak Gradient 11.2 mmHg AV Mean Velocity 116.0 cm/s AV Mean Gradient 6.0 mmHg AV Velocity Time Integral 33.8 cm LVOT Peak Velocity 117.0 cm/s LVOT Peak Gradient 5.5 mmHg LVOT Mean Velocity 70.0 cm/s LVOT Mean Gradient 2.0 mmHg LVOT Velocity Time Integral 27.1 cm LVOT Stroke Volume 69.0 cm AV Area Cont Eq vti 2.0 cm AV Area Cont Eq pk 1.8 cm MV Peak Velocity 121.0 cm/s MV Peak Gradient 5.9 mmHg MV Mean Velocity 74.4 cm/s MV Mean Gradient 3.0 mmHg Mitral E Point Velocity 103.0 cm/s Mitral A Point Velocity 109.0 cm/s Mitral E to A Ratio 0.9 MV PHT Velocity 122.0 cm/s MV Deceleration [facility] 655.0 cm/s MV Pressure Half Time 55.9 ms MV Area PHT 3.9 cm MV Deceleration Time 204.0 ms TR Peak Velocity 285.0 cm/s TR Peak Gradient 32.5 mmHg Right Atrial Pressure 10.0 mmHg Pulmonary Artery Systolic Pressu 42.5 mmHg Right Ventricular Systolic Press 42.5 mmHg PV Peak Velocity 157.0 cm/s PV Peak Gradient 9.9 mmHg PV Mean Velocity 110.0 cm/s PV Mean Gradient 6.0 mmHg PV Velocity Time Integral 29.3 cm LV E' Lateral Velocity 12.6 cm/s Mitral E to LV E' Lateral Ratio 8.2 LV E' Septal Velocity 8.4 cm/s Mitral E to LV E' Septal Ratio 12.3
[2016-06-23 20:36] LABS: ABSOLUTE BASOPHIL COUNT 0.1 /CUMM (0.0-0.2); ABSOLUTE EOSINOPHIL COUNT 0.7 /CUMM (0.0-0.7); ABSOLUTE GRANULOCYTE CT 14.3 /CUMM (1.4-6.5); ABSOLUTE LYMPH COUNT 1.2 /CUMM (1.2-3.4); ABSOLUTE MONOCYTE COUNT 0.8 /CUMM (0.10-0.60); BASOPHIL % 0.5 % (0.0-2.0); EOSINOPHIL % 4.3 % (0-5); GRANULOCYTE % 83.5 % (42.2-75.2); HEMATOCRIT 22.8 % (37-47); MEAN CORPUSCULAR HGB 28.4 PG (27.0-31.0); MEAN CORPUSCULAR HGB CONC 33.5 G/DL (33.0-37.0); MEAN CORPUSCULAR VOLUME 84.6 FL (81.0-99.0); MEAN PLATELET VOLUME 7.9 FL (7.4-10.4); PLATELET COUNT 225 /CUMM (130-400)
[2016-06-23 20:38] LABS: WHITE BLOOD CELL COUNT 17.1 /CUMM (4.8-10.8)
[2016-06-24] VITALS: BP 110/60
[2016-06-24 05:06] LABS: ABSOLUTE BASOPHIL COUNT 0 /CUMM (0.0-0.2); ABSOLUTE EOSINOPHIL COUNT 0.9 /CUMM (0.0-0.7); ABSOLUTE GRANULOCYTE CT 12.4 /CUMM (1.4-6.5); ABSOLUTE LYMPH COUNT 1.2 /CUMM (1.2-3.4); ABSOLUTE MONOCYTE COUNT 0.5 /CUMM (0.10-0.60); BASOPHIL % 0.3 % (0.0-2.0); EOSINOPHIL % 6.2 % (0-5); HEMATOCRIT 21.6 % (37-47); MEAN CORPUSCULAR HGB 28.6 PG (27.0-31.0); MEAN CORPUSCULAR VOLUME 84.1 FL (81.0-99.0); MEAN PLATELET VOLUME 8.2 FL (7.4-10.4); PLATELET COUNT 233 /CUMM (130-400); RBC DISTRIBUTION WIDTH 18.4 % (11.5-14.5); RED BLOOD CELL CT 2.58 /CUMM (4.20-5.40); WHITE BLOOD CELL COUNT 15.2 /CUMM (4.8-10.8)
--- NOTE | 2016-06-24 06:27 | PN- Resident CRCU ---
RAYSA DAVIS,[facility] 06/24/16626: Subjective HPI/CRCU Issues: Ms. Jauregui was seen and examined this morning. She is resting comfortably in bed. Patient reports that she does feel very teary and depressed this morning owing to her recent clinical condition last 48 hours. She states that she feels very anxious. She denies any fever, chills, nausea, vomiting. She is currently comfortable and endorses mild chest pain. She has opted not to take any additional medication for now. 24 Hour Events: No Overnight Issues Reported Objective Vital Signs & I&O Last 8 Hrs of Vitals and I&O: T: 97.4-98.7 HR: 69-90 RR:14-22 BP: 103/55-143/60 3.0 L NC 92%-98% Urine Output: SI: 400 SII: 550 SIII:680 Exam General Appearance: well developed/nourished, no apparent distress, alert, awake Cardiovascular: regular rate/rhythm Gastrointestinal: normal bowel sounds, soft, non-tender, no organomegaly Extremities: normal inspection, normal capillary refill, normal range of motion Cranial Nerves: normal hearing, normal speech, PERRL Skin: intact Skin Temp/Moisture Exam: Warm/Dry Weaning Parameters NIF: 27 Minute Volume: 7.58 Resp rate: 15 Vt: 600 Heart Rate: 88 Weaning Schedule Start Time: 0920 Minute Volume: 8.8 Resp Rate: 23 Vt: 518 Heart Rate: 88 End Time: 1020 Minute Volume: 7 Resp Rate: 17 Vt: 440 Heart Rate: 85 Current Medications: Current Medications Sig/Rafaela Start time Last Medication Dose Route Stop Time Status Admin Acetaminophen 1,000 MG Q8P PRN 06/23 0845 AC 06/24 N/A 1 UNIT IV 0502 Albuterol Sulfate 3 ML EVERY 4 HRS/AWAKE 06/24 1200 UNVr INH Albuterol Sulfate 3 ML Q4 06/23 1400 DC 06/24 INH 1007 Ampicillin Sodium/ 3,000 MG Q6H 06/22 0400 AC 06/24 Sulbactam Sodium IV 0408 Sodium Chloride 100 ML Celecoxib 400 MG DAILY 06/24 1000 AC PO Hydromorphone HCl 0.6 MG Q4P PRN 06/23 0815 DC 06/24 IV 0608 Lorazepam 1 MG Q4P PRN 06/22 1700 AC 06/22 IV 1711 Morphine Sulfate 2 MG Q4P PRN 06/22 0245 06/23 IV 1125 Pantoprazole Sodium 40 MG DAILY 06/21 1815 06/23 IV 0856 Phenol 2 SPRAY Q2P PRN 06/23 1200 06/23 EXT 1223 Sodium Chloride 1,000 ML Q10H 06/23 0745 06/24 IV 0112 Impression/Plan Impression/Problem List Impression: Ms Jauregui is a 71-year-old female with past medical history of Colon Cancer s /p several weeks post robotic right colectomy and GERD who had presented to [facility] on 06/21/2016 for placement of a left Port-A-Cath. Following the procedure, the patient experienced cardiac arrest likely as a result of a tension pneumothorax. She is currently admitted to the intensive care unit for further management. Alvarado: Day four Femoral line: Day Three--> Can be removed today, if peripharel access is availble. Post Operative Cardiac Arrest tension pnemothorax during insertion of port-a- cath Status post incision and placement of chest tube, left lung reexpanded. No evidence of hemothorax. Chest tube management as per surgery. May be able to be pulled this afternoon. Heparin discontinued 06/22/2016. Morphine 2mg Q4PRN, IV for pain relief. We are obtaining a repeat V/Q scan to rule out any evidence of PE. Aspiration Pneumonia We are treating the patient empirically for aspiration pneumonia. She is currently on Unasyn 3000 mg Q6. WBC 15.2 Chest pain due to chest tube insertion and recent chest compressions Patient has been off pressors. Monitor the patient for any ventricular tachycardias. If further ventricular tachycardia is noted may consider amiodarone. Initial lactic acid 9.8. Increased lactic acid likely due to hypoperfusion. Troponins: 0.44. Repeat echocardiogram: Normal left ventricular ejection fraction visually estimated at >60 . Acute blood loss Anemia. Patient's H&H this am: 7.4 Patient's revealed last H&H was 11/23. Consent obtained. The patient did have one transfusion on 06/22/2016. Patient had to have one additional unit of PRBCs 06/23/2016. We will repeat a CBC status post transfusion. Maintain H&H above 8. Repeat CBC, 06/24/2016 Hypokalemia, #Resolved Patient K: 4.2. Target range above 4.0. Repeat BEP in a.m. KUNAL, Due to hypoperfusion. BUN to creatinine ratio 19.09 Likely due to hypoperfusion. Repeat BEP in a.m. Continue aggressive hydration via PO intake. DVT prophylaxis Heparin Code FC Problem List: 1. Cardiocirculatory collapse 2. Cardiac arrest 3. Tension pneumothorax, spontaneous Pain Ratin Tomorrow's Labs & Rationales: CBC ICU Bundle Plan DVT/Prophylaxis: pharmacological CARMELA DAVIS,Jose CROWLEY 06/24/16 0937: Attending MD Review Statement Attending Sign Off Attending Cosign Statement: I have: examined this patient, reviewed [facility] EMR data, personally reviewd images, discussd w/resident/PA/HOSPICE FELLOW, discussed mgmt plan w/pt, agreed w/resident/ PA/HOSPICE FELLOW, amended to note. Reason for Cont Hospitalizatn: Respiratory failure Other Findings: The patient is awake and alert. She continues to have ongoing chest pain however this is slowly improving. There were no overnight events. Her respiratory status remained stable postextubation. She remains on IV Unasyn for empiric coverage for possible aspiration. The plan for today will be to have the patient undergo transfusion, increase her activity/out of bed to chair, physical therapy input and a ventilation/perfusion scan to rule out pulmonary embolism.
[2016-06-24 08:00] VITALS: BP 128/70
--- NOTE | 2016-06-24 08:14 | RADIOLOGY REPORT ---
EXAMINATION: XR PORTABLE CHEST CLINICAL INFORMATION: Status post chest tube removal, question pneumothorax. COMPARISON: Multiple priors most recent 06/23/2016 TECHNIQUE: Portable AP erect 70 degree view of the chest was obtained. FINDINGS: A left-sided subclavian central venous catheter remains in place. No other indwelling lines or catheters are seen. There is increasing opacity in the left lung field, infiltrate and/or atelectasis. There is no evidence of pneumothorax. Small left pleural effusion is also suspected. Mild increased markings on the right with patchy opacity overlying the right heart border appears unchanged. IMPRESSION: Left-sided chest tube removal without evidence of pneumothorax. Left-sided infiltrate and/or atelectasis appears to be increasing.
--- NOTE | 2016-06-24 10:53 | NUR ---
PHYSICAL THERAPY: RECIEVED CONSULT ORDERS, REVIEWED CHART, SPOKE TO RN. PATIENT AND RN TO BE LEAVING FLOOR FOR V/Q SCAN AND REQUESTING P.T. RETURN AFTER 1 PM TO COMPLETE EVALUATION. P.T. TO F/U APPROPRIATE.
[2016-06-24 14:38] LABS: ABSOLUTE BASOPHIL COUNT 0.1 /CUMM (0.0-0.2); ABSOLUTE EOSINOPHIL COUNT 0.6 /CUMM (0.0-0.7); ABSOLUTE GRANULOCYTE CT 12.4 /CUMM (1.4-6.5); ABSOLUTE MONOCYTE COUNT 0.6 /CUMM (0.10-0.60); BASOPHIL % 0.9 % (0.0-2.0); EOSINOPHIL % 4.3 % (0-5); GRANULOCYTE % 84.2 % (42.2-75.2); HEMATOCRIT 22.3 % (37-47); MEAN CORPUSCULAR HGB 28.9 PG (27.0-31.0); MEAN CORPUSCULAR HGB CONC 34.2 G/DL (33.0-37.0); MEAN CORPUSCULAR VOLUME 84.4 FL (81.0-99.0); PLATELET COUNT 226 /CUMM (130-400); RED BLOOD CELL CT 2.64 /CUMM (4.20-5.40); WHITE BLOOD CELL COUNT 14.8 /CUMM (4.8-10.8)
--- NOTE | 2016-06-24 14:45 | NUCLEAR MEDICINE REPORT ---
EXAMINATION: PULMONARY VENTILATION PERFUSION STUDY CLINICAL INFORMATION: Shortness of breath. COMPARISON: Chest radiograph dated 06/24/2016 is available for comparison. No previous lung scan is available for comparison. TECHNIQUE: Serial gamma scintillation camera images were obtained over the posterior chest during the single breath, equilibrium rebreathing and washout of 14.7 mCi Xe 133 gas. The patient then received 4.2 mCi Tc-99m MAA intravenously and a 6-view perfusion study was performed. FINDINGS: Ventilation images: On the single breath and equilibrium images there is markedly diminished activity in the left lung with almost absent activity at the left lung base. Equilibrium phase there is some xenon activity that appears below the diaphragm and is probably due to some swallowed xenon gas in the stomach. Activity in the right lung appears normal. Parental washout phase there is no abnormal retention. Perfusion images: No segmental perfusion defects are present. There is a diffuse decrease in activity in the left lung compared to the right in this is significantly more severe posteriorly. There is also marked prominence of the interlobar fissure on the left. The cardiac silhouette is mildly to moderately dilated. There are no focal or anatomic appearing perfusion defects. The contemporaneous chest radiograph shows increasing opacity in the left lung an some left pleural effusion. IMPRESSION: Very low probability of pulmonary embolism. These findings are most likely due to a moderately sized left pleural effusion and cardiomegaly.
--- NOTE | 2016-06-24 15:38 | PN- Thoracic Surgery ---
Subjective Subjective: no sob, no chest pain. mild cough without productive. Objective Vital Signs and I&Os Vital Signs Date Time Temp Pulse Resp B/P B/P Pulse O2 O2 Flow FiO2 Mean Ox Delivery Rate 06/24 1200 96 Nasal 2.0L Cannula 06/24 1050 95 Nasal 2.0L Cannula 06/24 0800 94 Nasal 3.0L Cannula 06/24 0800 98.1 70 21 128/70 94 Nasal 3.0L Cannula 06/24 0000 97.7 76 18 110/60 96 Nasal 3.0L Cannula 06/24 0000 96 Nasal 3.0L Cannula 06/23 2000 97 Nasal 3.0L Cannula 06/23 1700 95 Nasal 3.0L Cannula 06/23 1600 97.6 82 20 116/54 95 Nasal 3.0L Cannula 06/23 1600 95 Nasal 3.0L Cannula Intake & Output 06/24 1600 06/24 0800 06/24 0000 06/23 1600 06/23 0800 06/23 0000 Intake Total 1970 1366 1367 1420 1175 869 Output Total 1100 680 550 400 510 370 Balance 870 901 136 3041 665 499 Intake, Blood 350 350 Product Intake, IV 1120 1216 1067 1420 825 869 Intake, Oral 500 150 300 0 0 Intake, Other 0 0 Number 0 0 0 0 Bowel Movements Output, Chest 110 70 Tube Drainage Output, 0 0 Gastric Drainage Output, Urine 1100 680 550 400 400 300 Patient 173 lb Weight Physical Exam: HEENT- wnl Heart - RRR Lungs- dressing with minimal s/s staining. R lung clear. L lung with breath sounds throughout. crackles noted throughout. trachea is midline. neuro- awake and alert. Results Recent Imaging Studies: PATIENT: NATALEE MAXWELL PRESENT AGE: 71 PATIENT ACCOUNT NO: [id number] : 45 LOCATION: [facility] ORDERING PHYSICIAN: CA JARVIS SERVICE DATE: 06/24/16 EXAM TYPE: RAD - XRY-PORTABLE CHEST XRAY EXAMINATION: XR PORTABLE CHEST CLINICAL INFORMATION: Status post chest tube removal, question pneumothorax. COMPARISON: Multiple priors most recent 06/23/2016 TECHNIQUE: Portable AP erect 70 degree view of the chest was obtained. FINDINGS: A left-sided subclavian central venous catheter remains in place. No other indwelling lines or catheters are seen. There is increasing opacity in the left lung field, infiltrate and/or atelectasis. There is no evidence of pneumothorax. Small left pleural effusion is also suspected. Mild increased markings on the right with patchy opacity overlying the right heart border appears unchanged. IMPRESSION: Left-sided chest tube removal without evidence of pneumothorax. Left-sided infiltrate and/or atelectasis appears to be increasing. DICTATED BY: LILIYA SMITH MD DATE/TIME DICTATED:06/24/16802 UI U[employer] WEB DEVELOPER:SALLIE DATE/TIME TRANSCRIBED:06/24/16 Assessment/Plan Assessment/Plan chest tube removed yesterday. progressing well. no further CT surgical intervention needed at this time. tx for pneumonia/pneumonitis per critical care team. please call with questions. Core Measures/Miscellaneous Venous Thromboembolism VTE Risk Factors: Age > 40, Surgery VTE Contraindications: No Contraindications No Pharm VTE Prophylaxis D/T: Active Bleeding VTE Diagnosis: No VTE Type: NONE VTE Confirmed by (Test): NONE Beta Douglas Is Beta Douglas a Home Med? No Antibiotics Is Patient on Antibiotics? Yes If Yes: prophylaxis
[2016-06-24 16:00] VITALS: BP 160/70
--- NOTE | 2016-06-24 16:55 | PN- Cardiology ---
Subjective Subjective: Doing much better. Cardiac status appears stable. V/Q scan pending Objective Vital Signs and I&Os Vital Signs Date Time Temp Pulse Resp B/P B/P Pulse O2 O2 Flow FiO2 Mean Ox Delivery Rate 06/24 1600 93 Nasal 2.0L Cannula 06/24 1600 99.3 75 24 160/70 93 Nasal 2.0L Cannula 06/24 1200 96 Nasal 2.0L Cannula 06/24 1050 95 Nasal 2.0L Cannula 06/24 0800 94 Nasal 3.0L Cannula 06/24 0800 98.1 70 21 128/70 94 Nasal 3.0L Cannula 06/24 0000 97.7 76 18 110/60 96 Nasal 3.0L Cannula 06/24 0000 96 Nasal 3.0L Cannula 06/23 2000 97 Nasal 3.0L Cannula 06/23 1700 95 Nasal 3.0L Cannula Intake & Output 06/24 1600 06/24 0800 06/24 0000 06/23 1600 06/23 0800 06/23 0000 Intake Total 1970 1366 1367 1420 1175 869 Output Total 1100 680 550 400 510 370 Balance 870 520 904 4242 665 499 Intake, Blood 350 350 Product Intake, IV 1120 1216 1067 1420 825 869 Intake, Oral 500 150 300 0 0 Intake, Other 0 0 Number 0 0 0 0 Bowel Movements Output, Chest 110 70 Tube Drainage Output, 0 0 Gastric Drainage Output, Urine 1100 680 550 400 400 300 Patient 173 lb Weight Physical Exam: General Appearance: well developed/nourished, no apparent distress, alert, awake Cardiovascular: regular rate/rhythm Gastrointestinal: normal bowel sounds, soft, non-tender, no organomegaly Extremities: normal inspection, normal capillary refill, normal range of motion Cranial Nerves: normal hearing, normal speech, PERRL Skin: intact Skin Temp/Moisture Exam: Warm/Dry Current Medications: Current Medications Sig/Rafaela Start time Last Medication Dose Route Stop Time Status Admin Acetaminophen 1,000 MG Q8P PRN 06/23 0845 AC 06/24 N/A 1 UNIT IV 0502 Albuterol Sulfate 3 ML EVERY 4 HRS/AWAKE 06/24 1200 AC 06/24 INH 1307 Albuterol Sulfate 3 ML Q4 06/23 1400 DC 06/24 INH 1007 Ampicillin Sodium/ 3,000 MG Q6H 06/22 0400 AC 06/24 Sulbactam Sodium IV 1033 Sodium Chloride 100 ML Celecoxib 400 MG DAILY 06/24 1000 AC 06/24 PO 1034 Docusate Sodium 100 MG DAILY NEEDED PRN 06/24 1615 AC PO Hydromorphone HCl 0.6 MG Q4P PRN 06/23 0815 DC 06/24 IV 0608 Lorazepam 1 MG Q4P PRN 06/22 1700 AC 06/22 IV 1711 Morphine Sulfate 2 MG Q4P PRN 06/22 0245 AC 06/23 IV 1125 Ondansetron HCl 4 MG ONCE ONE 06/24 1100 DC 06/24 IV 06/24 1101 1106 Pantoprazole Sodium 40 MG DAILY 06/21 1815 AC 06/24 IV 1033 Phenol 2 SPRAY Q2P PRN 06/23 1200 AC 06/23 EXT 1223 Polyethylene Glycol 17 GM DAILY PRN 06/24 1600 AC PO Senna 187 MG AT BEDTIME PRN 06/24 1600 CAN PO Sodium Chloride 1,000 ML Q10H 06/23 0745 DC 06/24 IV 0112 Results Last 48 Hrs of Labs/Mics: Laboratory Tests 06/24/16 1340: CBC w Diff NO MAN DIFF REQ, RBC 2.64 L, MCV 84.4, MCH 28.9, RDW 18.0 H, MPV 8.0, Gran % 84.2 H, Lymphocytes % 6.7 L, Monocytes % 3.9, Eosinophils % 4.3, Basophils % 0.9, Absolute Granulocytes 12.4 H, Absolute Lymphocytes 1.0 L, Absolute Monocytes 0.6, Absolute Eosinophils 0.6, Absolute Basophils 0.1, PUBS MCHC 34.2 06/24/16 0400: Anion Gap 8, Estimated GFR 49 L, Glucose 91, Calcium 7.7 L, Phosphorus 3.7, Magnesium 2.0, Total Bilirubin 0.8, AST 24, ALT 49, Albumin 2.4 L, CBC w Diff NO MAN DIFF REQ, RBC 2.58 L, MCV 84.1, MCH 28.6, RDW 18.4 H, MPV 8.2, Gran % 82.0 H, Lymphocytes % 8.0 L, Monocytes % 3.5, Eosinophils % 6.2 H, Basophils % 0.3, Absolute Granulocytes 12.4 H, Absolute Lymphocytes 1.2, Absolute Monocytes 0.5, Absolute Eosinophils 0.9, Absolute Basophils 0, PUBS MCHC 34.0 06/23/16 2020: CBC w Diff NO MAN DIFF REQ, RBC 2.70 L, MCV 84.6, MCH 28.4, RDW 18.0 H, MPV 7.9, Gran % 83.5 H, Lymphocytes % 7.2 L, Monocytes % 4.5, Eosinophils % 4.3, Basophils % 0.5, Absolute Granulocytes 14.3 H, Absolute Lymphocytes 1.2, Absolute Monocytes 0.8 H, Absolute Eosinophils 0.7, Absolute Basophils 0.1, PUBS MCHC 33.5 06/23/16 1229: CBC w Diff NO MAN DIFF REQ, RBC 2.80 L, MCV 83.5, MCH 28.3, RDW 18.1 H, MPV 8.2, Gran % 85.8 H, Lymphocytes % 6.7 L, Monocytes % 4.8, Eosinophils % 2.1, Basophils % 0.6, Absolute Granulocytes 14.6 H, Absolute Lymphocytes 1.1 L, Absolute Monocytes 0.8 H, Absolute Eosinophils 0.4, Absolute Basophils 0.1, [facility] MCHC 33.9 06/23/16 1115: pH 7.39, pCO2 34 L, pO2 75 L, HCO3 21, ABG O2 Sat (Measured) 94.0 L, P-50 ( Temp Corrected) NO, Carboxyhemoglobin 0.7 L, O2 Concentration % 35%, Temperature 98.1, O2 Delivery Method T PIECE, Phlebotomy Draw Site LR A-LINE 06/23/16 0413: Anion Gap 10, Estimated GFR 37 L, Glucose 97, Calcium 7.1 L, Phosphorus 4.4, Magnesium 1.9, Total Bilirubin 1.9 H, AST 33, ALT 64 H, Troponin I 0.44 *H, Albumin 2.2 L, CBC w Diff NO MAN DIFF REQ, RBC 2.60 L, MCV 84.6, MCH 28.1, RDW 18.3 H, MPV 8.2, Gran % 86.8 H, Lymphocytes % 7.1 L, Monocytes % 4.2, Eosinophils % 1.5, Basophils % 0.4, Absolute Granulocytes 16.6 H, Absolute Lymphocytes 1.4, Absolute Monocytes 0.8 H, Absolute Eosinophils 0.3, Absolute Basophils 0.1, [facility] MCHC 33.2 06/22/16 2017: APTT 29, CBC w Diff NO MAN DIFF REQ, RBC 2.50 L, MCV 83.2, MCH 28.3, RDW 19.3 H, MPV 7.9, Gran % 85.6 H, Lymphocytes % 9.2 L, Monocytes % 4.9, Eosinophils % 0.1, Basophils % 0.2, Absolute Granulocytes 17.2 H, Absolute Lymphocytes 1.8, Absolute Monocytes 1.0 H, Absolute Eosinophils 0, Absolute Basophils 0, PUBS MCHC 34.0 Microbiology 06/22 2199 LOWER RESP: Respiratory Culture - COMP YEAST 06/22 2199 LOWER RESP: Gram Stain - COMP Assessment/Plan Assessment/Plan Assessment: 1. Postoperative cardiac arrest. Possible tension pneumothorax. Possible pulmonary embolism. 2. Persistent left chest discomfort - Likely multifactorial (Chest tube; post compression: etc) 3. Elevated troponin - 2.17; followup pending; demand vs NSTEMI 4. Wide-complex tachycardia, possible ventricular tachycardia seen during code 5. Normal left ventricular function and normal RV function seen on echocardiogram 6. Leukocytosis Recommendations: - COntinue all supportive care as per the ICU team - Respiratory status stable post extubation - Full followup echo shows normal LV function with no significant abnormaities - V/Q scan pending - Outpatient followup with Dr. Jackman. Continue telemetry? Yes
[2016-06-24 19:34] LABS: ABSOLUTE LYMPH COUNT 1.2 /CUMM (1.2-3.4); ABSOLUTE MONOCYTE COUNT 0.5 /CUMM (0.10-0.60)
[2016-06-24 19:40] LABS: ABSOLUTE BASOPHIL COUNT 0 /CUMM (0.0-0.2); ABSOLUTE EOSINOPHIL COUNT 0.7 /CUMM (0.0-0.7); BASOPHIL % 0.3 % (0.0-2.0); GRANULOCYTE % 82.1 % (42.2-75.2); HEMATOCRIT 21.4 % (37-47); MEAN CORPUSCULAR HGB 28.6 PG (27.0-31.0); MEAN CORPUSCULAR HGB CONC 33.7 G/DL (33.0-37.0); MEAN CORPUSCULAR VOLUME 84.8 FL (81.0-99.0); PLATELET COUNT 238 /CUMM (130-400); RBC DISTRIBUTION WIDTH 17.5 % (11.5-14.5); RED BLOOD CELL CT 2.52 /CUMM (4.20-5.40); WHITE BLOOD CELL COUNT 13.4 /CUMM (4.8-10.8)
[2016-06-25] VITALS: BP 150/82
[2016-06-25 03:29] LABS: ABSOLUTE BASOPHIL COUNT 0.1 /CUMM (0.0-0.2); ABSOLUTE EOSINOPHIL COUNT 1.4 /CUMM (0.0-0.7); ABSOLUTE GRANULOCYTE CT 11.5 /CUMM (1.4-6.5); ABSOLUTE LYMPH COUNT 1.3 /CUMM (1.2-3.4); ABSOLUTE MONOCYTE COUNT 0.8 /CUMM (0.10-0.60); BASOPHIL % 0.8 % (0.0-2.0); EOSINOPHIL % 9.2 % (0-5); GRANULOCYTE % 76.3 % (42.2-75.2); MEAN CORPUSCULAR HGB 28.7 PG (27.0-31.0); MEAN CORPUSCULAR HGB CONC 33.6 G/DL (33.0-37.0); MEAN CORPUSCULAR VOLUME 85.3 FL (81.0-99.0); PLATELET COUNT 293 /CUMM (130-400); RBC DISTRIBUTION WIDTH 17.3 % (11.5-14.5); WHITE BLOOD CELL COUNT 15.1 /CUMM (4.8-10.8)
[2016-06-25 03:36] LABS: HEMATOCRIT 28.7 % (37-47); RED BLOOD CELL CT 3.37 /CUMM (4.20-5.40)
--- NOTE | 2016-06-25 07:30 | PN- Resident CRCU ---
Subjective HPI/CRCU Issues: Mrs. Jauregui was seen and examined this morning. She is resting comfortably in bed. She states that today she feels sad and expresses her desire to want to be discharged. She denies any fever, chills, nausea, vomiting. She is currently pain-free. Currently Awaiting For A CT of the chest to rule out a hemothorax. 24 Hour Events: Falling H&H. Patient had to be transfused 1 units. Objective Vital Signs & I&O Last 8 Hrs of Vitals and I&O: T: 97 PA: 70 RR: 17 BP: 160/90 Pulse Ox: 95 on NC, 1.0 L. Exam General Appearance: well developed/nourished, no apparent distress, alert, awake Respiratory: decreased breath sounds Cardiovascular: regular rate/rhythm Gastrointestinal: normal bowel sounds, soft, non-tender Extremities: normal inspection, normal capillary refill, no edema Cranial Nerves: normal hearing Skin: intact Skin Temp/Moisture Exam: Warm/Dry Weaning Parameters NIF: 27 Minute Volume: 7.58 Resp rate: 15 Vt: 600 Heart Rate: 88 Weaning Schedule Start Time: 0920 Minute Volume: 8.8 Resp Rate: 23 Vt: 518 Heart Rate: 88 End Time: 1020 Minute Volume: 7 Resp Rate: 17 Vt: 440 Heart Rate: 85 Current Medications: Current Medications Sig/Rafaela Start time Last Medication Dose Route Stop Time Status Admin Acetaminophen 1,000 MG Q8P PRN 06/23 0845 AC 06/25 N/A 1 UNIT IV 0830 Albuterol Sulfate 3 ML EVERY 4 HRS/AWAKE 06/24 1200 AC 06/25 INH 0844 Amoxicillin/ 875 MG Q12 06/25 2200 AC Clavulanate Potassium PO Ampicillin Sodium/ 3,000 MG Q6H 06/22 0400 DC 06/25 Sulbactam Sodium IV 0830 Sodium Chloride 100 ML Celecoxib 400 MG DAILY 06/24 1000 DC 06/25 PO 0831 Docusate Sodium 100 MG DAILY NEEDED PRN 06/24 1615 AC 06/25 PO 0831 Lorazepam 1 MG Q4P PRN 06/22 1700 DC 06/25 IV 0317 Morphine Sulfate 2 MG Q4P PRN 06/22 0245 DC 06/23 IV 1125 Ondansetron HCl 4 MG ONCE ONE 06/24 1100 DC 06/24 IV 06/24 1101 1106 Pantoprazole Sodium 40 MG DAILY 06/21 1815 AC 06/25 IV 0831 Phenol 2 SPRAY Q2P PRN 06/23 1200 AC 06/23 EXT 1223 Polyethylene Glycol 17 GM DAILY PRN 06/24 1600 AC 06/25 PO 0831 Potassium Chloride 10 MEQ ONCE ONE 06/25 0900 DC 06/25 PO 06/25 0901 1004 Potassium Chloride 20 MEQ ONCE ONE 06/25 0730 DC 06/25 PO 06/25 0731 0830 Senna 187 MG AT BEDTIME PRN 06/24 1600 CAN PO Sodium Chloride 1,000 ML Q10H 06/23 0745 DC 06/24 IV 0112 Impression/Plan Impression/Problem List Impression: Ms Jauregui is a 71-year-old female with past medical history of Colon Cancer s /p several weeks post robotic right colectomy and GERD who had presented to [facility] on 06/21/2016 for placement of a left Port-A-Cath. Following the procedure, the patient experienced cardiac arrest likely as a result of a tension pneumothorax. She is currently admitted to the intensive care unit for further management. Alvarado: Day four-->Can be removed today, if peripharel access is availble. Femoral line: Day Three--> Can be removed today, if peripharel access is availble. Post Operative Cardiac Arrest tension pnemothorax during insertion of port-a- cath Status post incision and placement of chest tube, left lung reexpanded. Heparin discontinued 06/22/2016. Morphine 2mg Q4PRN, IV for pain relief. Aspiration Pneumonia We are treating the patient empirically for aspiration pneumonia. She is currently on Unasyn 3000 mg Q6, transitioned to Augmentin 875 mg Q12 WBC 15.1 Chest pain due to chest tube insertion and recent chest compressions Patient has been off pressors. Monitor the patient for any ventricular tachycardias. If further ventricular tachycardia is noted may consider amiodarone. Initial lactic acid 9.8. Increased lactic acid likely due to hypoperfusion. Troponins: 0.44. Repeat echocardiogram: Normal left ventricular ejection fraction visually estimated at >60 . 06/25/2016. Patient started on metoprolol 12.5 mg twice a day. Owing to V. tach and persistent chest discomfort, patient might be eligible for a pharmacologic stress test for cardiac catheterization. Acute blood loss Anemia. Patient's H&H this am: 9.6 Patient's revealed last H&H was 11/23. Consent obtained. The patient did have one transfusion on 06/22/2016. Patient had to have one additional unit of PRBCs 06/23/2016. Maintain H&H above 8. CT w/o IV contrast chest and abdomen to rule out hemo-thorax/ retroperito abdoul bleed, done 06/25/2016. Hypokalemia, #Resolved Patient K: 3.9. Target range above 4.0. Repeat BEP in a.m. KUNAL, Due to hypoperfusion. BUN to creatinine ratio 16.5 Likely due to hypoperfusion. Repeat BEP in a.m. Continue aggressive hydration via PO intake. DVT prophylaxis Heparin Code FC Problem List: 1. Cardiocirculatory collapse 2. Cardiac arrest 3. Tension pneumothorax, spontaneous 4. Anemia Pain Ratin Tomorrow's Labs & Rationales: CBC ICU Bundle Plan DVT/Prophylaxis: pharmacological
[2016-06-25 08:00] VITALS: BP 160/90
--- NOTE | 2016-06-25 09:43 | NUR ---
DR FLORENTINO TO BEDSIDE TO ASSESS PT AND CHANGE PORT AND CT SITE DRESSING. BOTH SITES ARE WNL.
--- NOTE | 2016-06-25 10:13 | PN- Pulmonary ---
Subjective HPI/Critical Care Issues: Doing a little better On room air Feels much improved mild shortness of breath but says, this is improved since yesterday Afebrile Heart rate 70 Blood pressure is adequate slightly higher now SIGNIFICANT DATA creatinine is improved to 1.1 previous lactic acidosis is improved Previous troponin has trended down White count is 15.1 hemoglobin improved since yesterday INR was 1.57 on previous ABGs reviewed so far all the cultures are unremarkable VQ scan showed very low probability PE Chest x-ray showed atelectasis and effusion s/p transfusion last night Objective Current Medications: Current Medications Sig/Rafaela Start time Last Medication Dose Route Stop Time Status Admin Acetaminophen 1,000 MG Q8P PRN 06/23 0845 AC 06/25 N/A 1 UNIT IV 0830 Albuterol Sulfate 3 ML EVERY 4 HRS/AWAKE 06/24 1200 AC 06/25 INH 0844 Albuterol Sulfate 3 ML Q4 06/23 1400 DC 06/24 INH 1007 Ampicillin Sodium/ 3,000 MG Q6H 06/22 0400 AC 06/25 Sulbactam Sodium IV 0830 Sodium Chloride 100 ML Celecoxib 400 MG DAILY 06/24 1000 AC 06/25 PO 0831 Docusate Sodium 100 MG DAILY NEEDED PRN 06/24 1615 AC 06/25 PO 0831 Lorazepam 1 MG Q4P PRN 06/22 1700 DC 06/25 IV 0317 Morphine Sulfate 2 MG Q4P PRN 06/22 0245 DC 06/23 IV 1125 Ondansetron HCl 4 MG ONCE ONE 06/24 1100 DC 06/24 IV 06/24 1101 1106 Pantoprazole Sodium 40 MG DAILY 06/21 1815 AC 06/25 IV 0831 Phenol 2 SPRAY Q2P PRN 06/23 1200 AC 06/23 EXT 1223 Polyethylene Glycol 17 GM DAILY PRN 06/24 1600 AC 06/25 PO 0831 Potassium Chloride 10 MEQ ONCE ONE 06/25 0900 DC PO 06/25 0901 Potassium Chloride 20 MEQ ONCE ONE 06/25 0730 DC 06/25 PO 06/25 0731 0830 Senna 187 MG AT BEDTIME PRN 06/24 1600 CAN PO Sodium Chloride 1,000 ML Q10H 06/23 0745 DC 06/24 IV 0112 Vital Signs & I&O Last 24 Hrs of Vitals and I&O: Laboratory Tests 06/25 06/25 0315 0000 Chemistry Sodium (137 - 145 mmol/L) 138 Potassium (3.5 - 5.1 mmol/L) 3.9 Chloride (98 - 107 mmol/L) 108 H Carbon Dioxide (22 - 30 mmol/L) 21 L Anion Gap (5 - 16) 10 BUN (7 - 17 mg/dL) 15 Creatinine (0.5 - 1.0 mg/dL) 1.1 H Estimated GFR (>60 ml/min) 49 L Glucose (65 - 99 mg/dL) 94 Calcium (8.4 - 10.2 mg/dL) 8.0 L Phosphorus (2.5 - 4.5 mg/dL) 3.8 Magnesium (1.6 - 2.3 mg/dL) 2.0 Total Bilirubin (0.2 - 1.3 mg/dL) 1.1 AST (14 - 36 U/L) 22 ALT (9 - 52 U/L) 46 Albumin (3.5 - 5.0 g/dL) 2.6 L Hematology CBC w Diff NO MAN DIFF REQ Cancelled WBC (4.8 - 10.8 /CUMM) 15.1 H Cancelled RBC (4.20 - 5.40 /CUMM) 3.37 L Cancelled Hgb (12.0 - 16.0 G/DL) 9.6 L Cancelled Hct (37 - 47 %) 28.7 L Cancelled MCV (81.0 - 99.0 FL) 85.3 Cancelled MCH (27.0 - 31.0 PG) 28.7 Cancelled RDW (11.5 - 14.5 %) 17.3 H Cancelled Plt Count (130 - 400 /CUMM) 293 Cancelled MPV (7.4 - 10.4 FL) 8.0 Cancelled Gran % (42.2 - 75.2 %) 76.3 H Lymphocytes % (20.5 - 51.1 %) 8.4 L Monocytes % (1.7 - 9.3 %) 5.3 Eosinophils % (0 - 5 %) 9.2 H Basophils % (0.0 - 2.0 %) 0.8 Absolute Granulocytes (1.4 - 6.5 /CUMM) 11.5 H Absolute Lymphocytes (1.2 - 3.4 /CUMM) 1.3 Absolute Monocytes (0.10 - 0.60 /CUMM) 0.8 H Absolute Eosinophils (0.0 - 0.7 /CUMM) 1.4 Absolute Basophils (0.0 - 0.2 /CUMM) 0.1 PUBS MCHC (33.0 - 37.0 G/DL) 33.6 Cancelled 06/24 06/24 1900 1340 Hematology CBC w Diff NO MAN DIFF REQ NO MAN DIFF REQ WBC (4.8 - 10.8 /CUMM) 13.4 H 14.8 H RBC (4.20 - 5.40 /CUMM) 2.52 L 2.64 L Hgb (12.0 - 16.0 G/DL) 7.2 *L 7.6 L Hct (37 - 47 %) 21.4 L 22.3 L MCV (81.0 - 99.0 FL) 84.8 84.4 MCH (27.0 - 31.0 PG) 28.6 28.9 RDW (11.5 - 14.5 %) 17.5 H 18.0 H Plt Count (130 - 400 /CUMM) 238 226 MPV (7.4 - 10.4 FL) 8.0 8.0 Gran % (42.2 - 75.2 %) 82.1 H 84.2 H Lymphocytes % (20.5 - 51.1 %) 8.8 L 6.7 L Monocytes % (1.7 - 9.3 %) 3.8 3.9 Eosinophils % (0 - 5 %) 5.0 4.3 Basophils % (0.0 - 2.0 %) 0.3 0.9 Absolute Granulocytes (1.4 - 6.5 /CUMM) 11.0 H 12.4 H Absolute Lymphocytes (1.2 - 3.4 /CUMM) 1.2 1.0 L Absolute Monocytes (0.10 - 0.60 /CUMM) 0.5 0.6 Absolute Eosinophils (0.0 - 0.7 /CUMM) 0.7 0.6 Absolute Basophils (0.0 - 0.2 /CUMM) 0 0.1 PUBS MCHC (33.0 - 37.0 G/DL) 33.7 34.2 06/24 06/23 0400 2020 Chemistry Sodium (137 - 145 mmol/L) 140 Potassium (3.5 - 5.1 mmol/L) 4.2 Chloride (98 - 107 mmol/L) 111 H Carbon Dioxide (22 - 30 mmol/L) 21 L Anion Gap (5 - 16) 8 BUN (7 - 17 mg/dL) 21 H Creatinine (0.5 - 1.0 mg/dL) 1.1 H Estimated GFR (>60 ml/min) 49 L Glucose (65 - 99 mg/dL) 91 Calcium (8.4 - 10.2 mg/dL) 7.7 L Phosphorus (2.5 - 4.5 mg/dL) 3.7 Magnesium (1.6 - 2.3 mg/dL) 2.0 Total Bilirubin (0.2 - 1.3 mg/dL) 0.8 AST (14 - 36 U/L) 24 ALT (9 - 52 U/L) 49 Albumin (3.5 - 5.0 g/dL) 2.4 L Hematology CBC w Diff NO MAN DIFF REQ NO MAN DIFF REQ WBC (4.8 - 10.8 /CUMM) 15.2 H 17.1 H RBC (4.20 - 5.40 /CUMM) 2.58 L 2.70 L Hgb (12.0 - 16.0 G/DL) 7.4 *L 7.7 L Hct (37 - 47 %) 21.6 L 22.8 L MCV (81.0 - 99.0 FL) 84.1 84.6 MCH (27.0 - 31.0 PG) 28.6 28.4 RDW (11.5 - 14.5 %) 18.4 H 18.0 H Plt Count (130 - 400 /CUMM) 233 225 MPV (7.4 - 10.4 FL) 8.2 7.9 Gran % (42.2 - 75.2 %) 82.0 H 83.5 H Lymphocytes % (20.5 - 51.1 %) 8.0 L 7.2 L Monocytes % (1.7 - 9.3 %) 3.5 4.5 Eosinophils % (0 - 5 %) 6.2 H 4.3 Basophils % (0.0 - 2.0 %) 0.3 0.5 Absolute Granulocytes (1.4 - 6.5 /CUMM) 12.4 H 14.3 H Absolute Lymphocytes (1.2 - 3.4 /CUMM) 1.2 1.2 Absolute Monocytes (0.10 - 0.60 /CUMM) 0.5 0.8 H Absolute Eosinophils (0.0 - 0.7 /CUMM) 0.9 0.7 Absolute Basophils (0.0 - 0.2 /CUMM) 0 0.1 PUBS MCHC (33.0 - 37.0 G/DL) 34.0 33.5 06/23 06/23 1229 1115 Blood Gas pH (7.35 - 7.45 PH) 7.39 pCO2 (35 - 45 TORR) 34 L pO2 (80 - 100 TORR) 75 L HCO3 (21 - 28 MEQ/L) 21 ABG O2 Sat (Measured) (>96.0 %) 94.0 L P-50 (Temp Corrected) NO Carboxyhemoglobin (1.5 - 5.0 %) 0.7 L O2 Concentration % 35% Temperature (97.0 - 100.0 FARH) 98.1 O2 Delivery Method T PIECE Hematology CBC w Diff NO MAN DIFF REQ WBC (4.8 - 10.8 /CUMM) 17.0 H RBC (4.20 - 5.40 /CUMM) 2.80 L Hgb (12.0 - 16.0 G/DL) 7.9 L Hct (37 - 47 %) 23.3 L MCV (81.0 - 99.0 FL) 83.5 MCH (27.0 - 31.0 PG) 28.3 RDW (11.5 - 14.5 %) 18.1 H Plt Count (130 - 400 /CUMM) 192 MPV (7.4 - 10.4 FL) 8.2 Gran % (42.2 - 75.2 %) 85.8 H Lymphocytes % (20.5 - 51.1 %) 6.7 L Monocytes % (1.7 - 9.3 %) 4.8 Eosinophils % (0 - 5 %) 2.1 Basophils % (0.0 - 2.0 %) 0.6 Absolute Granulocytes (1.4 - 6.5 /CUMM) 14.6 H Absolute Lymphocytes (1.2 - 3.4 /CUMM) 1.1 L Absolute Monocytes (0.10 - 0.60 /CUMM) 0.8 H Absolute Eosinophils (0.0 - 0.7 /CUMM) 0.4 Absolute Basophils (0.0 - 0.2 /CUMM) 0.1 PUBS MCHC (33.0 - 37.0 G/DL) 33.9 Miscellaneous Phlebotomy Draw Site LR A-LINE Microbiology Date/Time Procedure - Status Source Growth 06/22 2216 Respiratory Culture - CAN LOWER RESP Cancelled: Cancelled via OE: CANCEL 06/22 2216 Gram Stain - CAN LOWER RESP Cancelled: Cancelled via OE: CANCEL 06/22 2199 Respiratory Culture - COMP LOWER RESP YEAST 06/22 2199 Gram Stain - COMP LOWER RESP Vital Signs Date Time Temp Pulse Resp B/P B/P Pulse O2 O2 Flow FiO2 Mean Ox Delivery Rate 06/25 0800 95 Nasal 1.0L Cannula 06/25 0800 97.0 70 17 160/90 95 Nasal 1.0L Cannula 06/25 0400 95 Nasal 1.0L Cannula 06/25 0000 97 Nasal 2.0L Cannula 06/25 0000 97.5 60 20 150/82 97 Nasal 2.0L Cannula 06/24 2000 95 Nasal 2.0L Cannula 06/24 1600 93 Nasal 2.0L Cannula 06/24 1600 99.3 75 24 160/70 93 Nasal 2.0L Cannula 06/24 1200 96 Nasal 2.0L Cannula 06/24 1050 95 Nasal 2.0L Cannula Intake & Output 06/25 1600 06/25 0800 06/25 0000 Intake Total 890 860 Output Total 1050 1250 Balance -160 -390 Intake, Blood 360 Product Intake, IV 230 260 Intake, Oral 300 600 Number 0 0 Bowel Movements Output, Urine 1050 1250 Impression/Plan Impression/Plan Impression/Plan: Physical Exam: General Appearance: well developed/nourished, no apparent distress, alert, awake Cardiovascular: regular rate/rhythm Lungs- dressing with minimal s/s staining. R lung clear. L lung with reduced breath sounds at bases Gastrointestinal: normal bowel sounds, soft, non-tender, no organomegaly Extremities: normal inspection, normal capillary refill, normal range of motion Cranial Nerves: normal hearing, normal speech, PERRL Skin: intact Skin Temp/Moisture Exam: Warm/Dry IMPRESSION This is a lady with previous history of colon cancer status post right colectomy came in for replacement of left Port-A-Cath placement following the procedure she went in to cardiac arrest. Issues include Postoperative cardiac arrest which seems to be probably related to tension pneumothorax patient was treated with status post chest tube now improved with successful resuscitation, s/p intubation now successful extubation on room air Left-sided chest discomfort most likely related to chest tube and chest compression Left-sided effusion significant anemia after the chest tube insertion and Port-A -Cath placement with left-sided effusion probably a component of hemothorax which is now stable Elevated troponin trending down Emend ischemia versus non-ST DC Wide-complex tachycardia during code situation improved No clinical evidence suggestive of pulmonary embolism at this time with a negative VQ scan with normal LV function and RV function Leukocytosis with probable aspiration pneumonia on appropriate antibiotics Recommendation Continue incentive spirometry Continue antibiotics and if stable can be switched to by mouth Augmentin Sputum culture Discontinue celecoxib use Tylenol if patient can tolerate it as she has had significant drop in her hemoglobin CT scan of the chest to rule out hemothorax Aggressive bowel regimen Follow electrolytes and divalents and appropriatly replace them Follow hemoglobin and hematocrit We will follow closely and if patient is stable can be transferred to telemetry floor later on
--- NOTE | 2016-06-25 12:36 | NUR ---
PT TAKEN TO CT FOR SCAN OF ABDOMEN/PELVIS, LUNGS; TOLERATED WELL. PT ABLE TO AMBULATE FROM BED TO CHAIR/STRETCHER AND INTO HALLWAY. PT BECAME HAD SOME EXERTIONAL SOB AND DESATTING TO 88% ON ROOM AIR.
--- NOTE | 2016-06-25 13:20 | CT SCAN REPORT ---
EXAMINATION: CT CHEST, ABDOMEN, AND PELVIS WITHOUT CONTRAST CLINICAL INFORMATION: Rule out pneumothorax. Rule out retroperitoneal bleed.. COMPARISON: Multiple prior studies most recently Chest radiograph 06/24/2016. TECHNIQUE: Multidetector volumetric imaging was performed from the thoracic inlet to the pubic symphysis without intravenous contrast. The study is limited by motion Sagittal and coronal reformatted images were obtained on the technologist workstation. Total exam dose-length product 1059.62 mGy-cm FINDINGS: LUNG: A small to modest layering right pleural effusion is identified with dependent atelectasis in the posterior right lung most notable in the right lower lobe. A small to moderate left pleural effusion is seen, slightly larger than the right side with mild patchy consolidation dependently in the posterior aspect of the left upper lobe, linear atelectasis in the lingula and near complete atelectasis of the left lower lobe. The central airways are patent. MEDIASTINUM: A left pectoral port terminates at the upper SVC. There is calcification of the thoracic aorta and coronary artery calcification. No evidence of pericardial effusion. The heart size is not enlarged. CHEST WALL/AXILLA: Small focal hematoma is seen in the left chest wall below the left breast extending to the chest wall superficial to the ribs. This is presumably related to recent chest tube placement and can be followed up to document resolution. LIVER, GALLBLADDER, BILIARY TREE: The non-contrast liver is normal in size, shape, and attenuation. No focal hepatic lesion or biliary ductal dilatation is present. Hypoattenuation is seen dependently in the gallbladder which may reflect layering bile within the gallbladder. No evidence of significant gallbladder wall thickening or pericholecystic fluid. PANCREAS: Normal; no mass or surrounding fluid. SPLEEN: The spleen is unremarkable. There is a small adjacent splenule. ADRENAL GLANDS: Normal; no mass. KIDNEYS AND URETERS: The kidneys are normal in size, shape, and attenuation. No hydronephrosis, hydroureter, or calculi seen. No perinephric stranding. BLADDER: The bladder is decompressed and contains a Alvarado catheter. Air within the bladder lumen is presumably related to catheterization. GASTROINTESTINAL TRACT: Small volume of stool is seen in the rectum. Bowel gas pattern is nonobstructive. The patient is had a prior right hemicolectomy. ABDOMINAL WALL: Subcutaneous edema is seen in the abdominal wall without focal abdominal wall hematoma. LYMPHOVASCULAR STRUCTURES: There is calcification of the aorta and iliofemoral vessels. A left femoral line extends to the level of the common femoral vein on the left. RETROPERITONEUM: No evidence of retroperitoneal hematoma. Fluid: A small amount of free fluid is seen around the liver and within the pelvis. There is also a small amount of fluid in the presacral space. PELVIC VISCERA: Unremarkable. OSSEOUS STRUCTURES: Multilevel degenerative changes are seen in the lower thoracic and lumbar spine. There is a mild kyphosis. IMPRESSION: 1. [id number] pleural effusions, left greater than right side with associated dependent atelectasis. There is complete atelectasis and consolidation of the left lower lobe and additional atelectatic changes in the lingula and right lower lobe. No significant high attenuation within the pleural fluid to suggest hemothorax. 2. Presumed small chest wall hematoma below the left breast related to prior chest tube insertion. Recommend reassessment on follow-up to exclude underlying mass in this region. 3. Small volume of ascites is seen around the liver and in the pelvis. No evidence of retroperitoneal bleed or abdominal wall bleed.
--- NOTE | 2016-06-25 15:07 | Transfer of Care Summary ---
Hospital Course Course Hospital Course: Ms Jauregui is a 71-year-old female with past medical history of Colon Cancer s /p several weeks post robotic right colectomy and GERD who had presented to [facility] on 06/21/2016 for placement of a left Port-A-Cath. Following the procedure, the patient experienced cardiac arrest as a result of a tension pneumothorax. Following ACLS the patient was transferred to the intensive care unit for further management and closer monitoring. Below is an outline of the care she received while admitted to the intensive care unit. At the time of admission the patient was intubated. Chest pain due to chest tube insertion and recent chest compressions The patient initially had to be maintianed on two pressors for blood pressure support. Her initial lactic acid was 9.8, however, these subsequently trended down once the patient was hemodynamically stable. At the time of admission, the patient was on a IV heparin for presumed treatment of a PE owing to the increased Right Ventricular pressure seen on her initial Echocradiogram. She was maintained on thie drip for 48 hours. Her Repeat echocardiogram showed Normal left ventricular ejection fraction visually estimated at >60 . On day five of admissin, owing to a brief run of VT and continued chest discomfort, the Patient started on metoprolol 12.5 mg twice a day. The pourer metal who saw the patient stated the patient might be eligible for a pharmacologic stress test for cardiac catheterization. Aspiration Pneumonia We treated the patient empirically for aspiration pneumonia. She was started on Unasyn 3000 mg Q6. On day five of admission she was transitioned to Augmentin 875 mg Q12 Acute blood loss Anemia. The patient does have a history of Anemia. Patient's revealed last H&H prior to admission was 11/23. The patient did have multiple transfusions, while admitted to the ICU. There was significant amount of blood loss from the chest tube noted. On day five of admission, we obtained a CT w/o IV contrast chest and abdomen to rule out hemo-thorax/ retroperitoneal bleed. These were inconclusive for any evidence of an active bleed. Ms Jauregui's H/H was stable prior to leaving the ICU. KUNAL, due to hypoperfusion At the time of admission the patient had a BUN to creatinine ratio which is elevated. This is likely due to acute kidney injury. The patient was aggressively hydrated. As the patient gained consciousness and was able to tolerate by mouth intake. Aggressive hydration was encouraged. Prior to discharge the patient had a BUN and creatinine that were within normal limits. Hypokalemia, #Resolved Patients electrolytes were aggressively repleted as needed. DVT prophylaxis Patient was maintained on Heparin for DVT prophylaxis. Code FC Assessment/Plan: The pourer metal who saw the patient stated the patient might be eligible for a pharmacologic stress test for cardiac catheterization. On day .... Of admissin, owing to a brief run of VT and chest discomfort, the Patient started on metoprolol 12.5 mg twice a day. The pourer metal who saw the patient over the weekend stated the patient might be eligible for a pharmacologic stress test for cardiac catheterization. The patient will need to follow up with her oncologist as previously instructed. pharmacologic stress test for cardiac catheterization. The patient will need to follow up with her oncologist as previously instructed.
[2016-06-25 16:00] VITALS: BP 152/66
--- NOTE | 2016-06-25 16:21 | PN- Cardiology ---
Subjective Subjective: * Mild exertional shortness of breath. Mild chest discomfort over chest tube site. * low probablility of pulmonary embolism * troponin coming down Objective Vital Signs and I&Os Vital Signs Date Time Temp Pulse Resp B/P B/P Pulse O2 O2 Flow FiO2 Mean Ox Delivery Rate 06/25 1542 94 Nasal 2.0L Cannula 06/25 1219 92 Nasal 2.0L Cannula 06/25 1200 93 Nasal 2.0L Cannula 06/25 08 95 Nasal 1.0L Cannula 06/25 08 97.0 70 17 160/90 95 Nasal 1.0L Cannula 06/25 0400 95 Nasal 1.0L Cannula 06/25 0000 97 Nasal 2.0L Cannula 06/25 0000 97.5 60 20 150/82 97 Nasal 2.0L Cannula 06/24 2000 95 Nasal 2.0L Cannula Intake & Output 06/25 1600 06/25 0800 06/25 0000 06/24 1600 06/24 0800 06/24 0000 Intake Total 700 806 055 2651 1366 1367 Output Total 910 1050 1250 1100 680 550 Balance -210 -160 -390 870 686 817 Intake, Blood 360 350 Product Intake, IV 220 961 150 3323 1216 1067 Intake, Oral 480 300 600 500 150 300 Number 1 0 0 0 0 Bowel Movements Output, Urine 910 1050 1250 1100 680 550 Physical Exam: General: WD/ overweight female in NAD; alert and oriented x 3 Neck: no JVD Heart: RRR w/o murmur Lungs: decreased breath sounds at left base; right lung is clear Extremities: no edema Assessment/Plan Assessment/Plan * Patient continues to have chest discomfort attributed to her chest tube. In consideration of her cardiac arrest, positive cardiac enzymes, VT and persistent chest discomfort consideration should be given to a pharmocologic stress test or cardiac catheterization. For now begin a small dose of Metoprolol at 12.5mg BID and monitor for bradycardia. Continue telemetry? Yes
--- NOTE | 2016-06-25 19:15 | Patient Discharge Instructions ---
Discharge Instructions General Discharge Information You were seen/treated for: Postoperative cardiac arrest secondary to tension pneumothorax Aspiration pneumonia Acute blood loss anemia Chest discomfort Chest wall hematoma Bilateral pleural effusions Uncontrolled hypertension Hypoxemia You had these procedures: Intubation Chest tube placement Watch for these problems: Worsening chest discomfort Difficulty breathing Increased oozing from old chest tube site Confusion or lightheadedness Fever or chills Other wound care: Continue to apply dry dressing to old chest tube site until the bleeding stops with dressing changes every other day or sooner if it gets wet or saturated. It is OK to take a shower but the dressing will need to be changed if it gets wet. Special Instructions: -Follow-up with your primary care physician within one week after discharge. Please inform your primary care physician of this admission to the ICU. -Please follow-up with the net programmer analyst Dr. Jackman within one week of discharge. We have provided you with a referral. -Please follow-up with surgeon Dr. Anthony Go regarding bleeding at the old chest tube site within one week of discharge. Diet Continue normal diet: Yes Activity Full Activity/No Limits: No Activity Self Limited: Yes (As Tolerated) Acute Coronary Syndrome Inclusion Criteria At DC or during hospital stay patient has or had the following: ACS DIAGNOSIS No Discharge Core Measures Meds if any: Prescribed or Continued at Discharge Meds if any: NOT Prescribed or Continued at Discharge Congestive Heart Failure Inclusion Criteria At DC or during hospital stay patient has or had the following: CHF DIAGNOSIS No Discharge Core Measures Meds if any: Prescribed or Continued at Discharge Meds if any: NOT Prescribed or Continued at Discharge Cerebrovascular accident Inclusion Criteria At DC or during hospital stay patient has or had the following: CVA/TIA Diagnosis No Discharge Core Measures Meds if any: Prescribed or Continued at Discharge Meds if any: NOT Prescribed or Continued at Discharge Venous thromboembolism Inclusion Criteria VTE Diagnosis No VTE Type NONE VTE Confirmed by (Test) NONE Discharge Core Measures - Per Current guidelines, there needs to be overlap - treatment for the first 5 days of Warfarin therapy. - If discharged on Warfarin prior to 5 days of - overlap therapy, the patient will need to be - assessed for post discharge needs including - *Post discharge parental anticoagulation - *Warfarin and/or parental anticoagulation education - *Follow up date to check INR post discharge At least 5 days overlap therapy as Inpatient No Meds if any: Prescribed or Continued at Discharge Note: Overlap Therapy is Warfarin and Anticoagulant Meds if any: NOT Prescribed or Continued at Discharge
--- NOTE | 2016-06-25 20:30 | NUR ---
PT AMBULATED TO TOILET WITH RW AND SUPERVISION ON ROOM AIR, SOB EXERTION NOTED. PT BACK TO BED 02 SAT WAS 77% ON ROOM AIR, PLACED BACK ON 2LNC SAT INCREASED TO 93%. NOTIFIED MD JOSIAH MIGUEL #[id number] NO FURTHER ORDERS GIVEN.
[2016-06-26] VITALS: BP 158/88
[2016-06-26 06:04] LABS: ABSOLUTE BASOPHIL COUNT 0.1 /CUMM (0.0-0.2); ABSOLUTE GRANULOCYTE CT 10.3 /CUMM (1.4-6.5); ABSOLUTE LYMPH COUNT 1.4 /CUMM (1.2-3.4); ABSOLUTE MONOCYTE COUNT 0.5 /CUMM (0.10-0.60); BASOPHIL % 0.9 % (0.0-2.0); EOSINOPHIL % 14.3 % (0-5); GRANULOCYTE % 71.7 % (42.2-75.2); HEMATOCRIT 31.3 % (37-47); MEAN CORPUSCULAR HGB 28.6 PG (27.0-31.0); MEAN CORPUSCULAR HGB CONC 33.7 G/DL (33.0-37.0); MEAN CORPUSCULAR VOLUME 84.9 FL (81.0-99.0); PLATELET COUNT 416 /CUMM (130-400); RBC DISTRIBUTION WIDTH 17.4 % (11.5-14.5); RED BLOOD CELL CT 3.69 /CUMM (4.20-5.40); WHITE BLOOD CELL COUNT 14.4 /CUMM (4.8-10.8)
[2016-06-26 08:00] VITALS: BP 160/74
--- NOTE | 2016-06-26 08:05 | PN- Resident CRCU ---
Subjective HPI/CRCU Issues: Mrs. Jauregui was seen and examined this morning, she is alert and oriented, sitting comfortably in bed. She asked me about her blood work and if she can walk on the floor and when she is getting discharged. She denies any pain, reports mild itchiness on left side of the posterior trunk where the dressing of he chest tube is. Denies fever, chills, nausea, vomiting. 24 Hour Events: Vital Signs Date Time Temp Pulse Resp B/P B/P Pulse O2 O2 Flow FiO2 Mean Ox Delivery Rate 06/26 1432 97.9 73 20 174/86 95 Nasal 1.5L Cannula 06/26 0830 94 Nasal 1.0L Cannula 06/26 0800 93 Nasal 2.0L Cannula 06/26 08 97.3 64 22 160/74 93 Nasal 2.0L Cannula 06/26 0400 95 Nasal 2.0L Cannula 06/26 0000 92 Nasal 2.0L Cannula 06/26 0000 97.1 70 26 158/88 92 Nasal 2.0L Cannula 06/25 2134 78 30 160/90 06/25 2000 93 Nasal 2.0L Cannula Intake & Output 06/26 1600 06/26 0800 06/26 0000 Intake Total 120 240 Output Total Balance 120 240 Intake, IV 0 0 Intake, Oral 120 240 Number 0 0 Bowel Movements Objective Vital Signs & I&O Last 8 Hrs of Vitals and I&O: max temp 97.1 MA 62-71 RR 19-27 systolic BP 158-162 diastolic BP 69-91 SO2 92-96% 2L NC Exam General Appearance: well developed/nourished, no apparent distress, alert, awake , comfortable Head: atraumatic, normal appearance Ears, Nose, Throat: normal pharynx, normal ENT inspection Neck: normal inspection, supple Respiratory: normal breath sounds, chest non-tender Cardiovascular: regular rate/rhythm Gastrointestinal: normal bowel sounds, soft, non-tender Extremities: normal inspection, normal capillary refill, normal range of motion Cranial Nerves: normal hearing, normal speech, PERRL Skin: intact, normal color, warm/dry Skin Temp/Moisture Exam: Warm/Dry Sepsis Skin Exam (color): Normal for Ethnicity Weaning Parameters NIF: 27 Minute Volume: 7.58 Resp rate: 15 Vt: 600 Heart Rate: 88 Weaning Schedule Start Time: 0920 Minute Volume: 8.8 Resp Rate: 23 Vt: 518 Heart Rate: 88 End Time: 1020 Minute Volume: 7 Resp Rate: 17 Vt: 440 Heart Rate: 85 Current Medications: Current Medications Sig/Rafaela Start time Last Medication Dose Route Stop Time Status Admin Acetaminophen 650 MG Q6-PRN PRN 06/26 0615 AC 06/26 PO 0619 Acetaminophen 1,000 MG .STK-MED ONE 06/26 0434 DC IV 06/26 0435 Acetaminophen 1,000 MG Q8P PRN 06/23 0845 DC 06/25 N/A 1 UNIT IV 1500 Albuterol Sulfate 3 ML BID 06/26 2200 AC INH Albuterol Sulfate 3 ML EVERY 4 HRS/AWAKE 06/24 1200 DC 06/26 INH 0817 Alprazolam 0.25 MG TID PRN 06/25 2045 AC 06/25 PO 2325 Amoxicillin/ 875 MG Q12 06/25 2200 AC 06/26 Clavulanate Potassium PO 1003 Docusate Sodium 100 MG DAILY NEEDED PRN 06/24 1615 AC 06/26 PO 1004 Furosemide 40 MG ONE ONE 06/26 1045 DC 06/26 PO 06/26 1046 1207 Metoprolol Tartrate 12.5 MG BID 06/25 2200 AC 06/26 PO 1001 Omeprazole 40 MG DAILY AC 06/26 0700 AC 06/26 PO 0619 Patient Medication 1 UNIT ONE NR 06/25 1645 DC 06/25 Teaching ED 06/25 1700 2333 Phenol 2 SPRAY Q2P PRN 06/23 1200 AC 06/23 EXT 1223 Polyethylene Glycol 17 GM DAILY PRN 06/24 1600 AC 06/26 PO 1004 Potassium Chloride 10 MEQ ONCE ONE 06/26 1045 DC 06/26 PO 06/26 1046 1207 Senna 187 MG AT BEDTIME PRN 06/25 1115 AC PO Impression/Plan Impression/Problem List Impression: Ms Jauregui is a 71-year-old female with past medical history of Colon Cancer s /p several weeks post robotic right colectomy and GERD who had presented to [facility] on 06/21/2016 for placement of a left Port-A-Cath. Following the procedure, the patient experienced cardiac arrest likely as a result of a tension pneumothorax. She is currently admitted to the intensive care unit for further management. Femoral line: removed Respiratory #Post Operative Cardiac Arrest tension pnemothorax during insertion of port-a- cath Status post incision and placement of chest tube, left lung reexpanded. Currently on 1.5 L O2 NC, breathing comforatby, lung exam clear #Aspiration Pneumonia We are treating the patient empirically for aspiration pneumonia. She was on Unasyn 3000 mg Q6, transitioned to Augmentin 875 mg Q12 since yesterday WBC 15.1 Carviovascular #Chest pain due to chest tube insertion and recent chest compressions Patient has been off pressors. Monitor the patient for any ventricular tachycardias. If further ventricular tachycardia is noted may consider amiodarone. Initial lactic acid 9.8. Increased lactic acid likely due to hypoperfusion. Troponin level trended down to 0.44 Repeat echocardiogram: left ventricular ejection fraction >60 Patient started on metoprolol 12.5 mg twice a day per cardiology * Owing to V. tach and persistent chest discomfort, patient might be eligible for a pharmacologic stress test or cardiac catheterization * Gave one dose of 40 mg po lasix today as CT scan yesterday reported moderate left pleural effusion and mild right pleural effusion * please follow up cardiology recommendations Heme #Acute blood loss Anemia. Patient's H&H this am: 10.6/31.3 improved compared to yesterday Last transfusion on On 06/24/16 Maintain H&H above 8. CT w/o IV contrast chest and abdomen done on 06/25/2016. Negative for hemothorax/ retroperitoneal bleed. Metabolic #Hypokalemia-Resolved Patient K: 3.9. Target range above 4.0. repleted with K-kaycee Repeat BEP in a.m. #KUNAL Most likely due to hypoperfusion. BUN to creatinine ratio 16.5 Repeat BEP in a.m. encourage hydration via PO intake. DVT prophylaxis ALPS, no pharmacologic px due to bleeding Code FC Problem List: 1. Anemia 2. Cardiocirculatory collapse 3. Cardiac arrest 4. Tension pneumothorax, spontaneous 5. Colon cancer Pain Ratin Tomorrow's Labs & Rationales: CBC (monitor WBC and H/H) BEP and Mg (monitor kidney fx and electrolyes) Plan DVT/Prophylaxis: pharmacological
--- NOTE | 2016-06-26 08:12 | PN- Pulmonary ---
Subjective HPI/Critical Care Issues: Much improved Up in bed in chair No significant issues Doing well No other significant complaints CT scan of the chest abdomen and pelvis reviewed which shows moderate left pleural effusion mild right pleural effusion with left lower lobe atelectasis with a hematoma around the chest tube site. Density of the pleural effusion is not suggestive of hemothorax Objective Current Medications: Current Medications Sig/Rafaela Start time Last Medication Dose Route Stop Time Status Admin Acetaminophen 650 MG Q6-PRN PRN 06/26 0615 06/26 PO 0619 Acetaminophen 1,000 MG .STK-MED ONE 06/25 1422 DC IV 06/25 1423 Acetaminophen 1,000 MG .STK-MED ONE 06/25 0826 DC IV 06/25 0827 Acetaminophen 1,000 MG Q8P PRN 06/23 0845 ID 06/25 N/A 1 UNIT IV 1500 Albuterol Sulfate 3 ML EVERY 4 HRS/AWAKE 06/24 1200 AC 06/25 INH 2015 Alprazolam 0.25 MG TID PRN 06/25 2045 AC 06/25 PO 2325 Amoxicillin/ 875 MG Q12 06/25 2200 AC 06/25 Clavulanate Potassium PO 2125 Ampicillin Sodium/ 3,000 MG Q6H 06/22 0400 DC 06/25 Sulbactam Sodium IV 0830 Sodium Chloride 100 ML Celecoxib 400 MG DAILY 06/24 1000 DC 06/25 PO 0831 Docusate Sodium 100 MG DAILY NEEDED PRN 06/24 1615 AC 06/25 PO 0831 Lorazepam 1 MG Q4P PRN 06/22 1700 DC 06/25 IV 0317 Metoprolol Tartrate 12.5 MG BID 06/25 2200 06/25 PO 2134 Morphine Sulfate 2 MG Q4P PRN 06/22 0245 DC 06/23 IV 1125 Omeprazole 40 MG DAILY AC 06/26 0700 AC 06/26 PO 0619 Pantoprazole Sodium 40 MG DAILY 06/21 1815 ID 06/25 IV 0831 Patient Medication 1 UNIT ONE NR 06/25 1645 ID 06/25 Teaching ED 06/25 1700 2333 Patient Medication 1 UNIT ONE NR 06/25 1530 ID Teaching ED 06/25 1600 Phenol 2 SPRAY Q2P PRN 06/23 1200 AC 06/23 EXT 1223 Polyethylene Glycol 17 GM DAILY PRN 06/24 1600 AC 06/25 PO 0831 Potassium Chloride 10 MEQ ONCE ONE 06/25 0900 DC 06/25 PO 06/25 0901 1004 Senna 187 MG AT BEDTIME PRN 06/25 1115 AC PO Vital Signs & I&O Last 24 Hrs of Vitals and I&O: Vital Signs Date Time Temp Pulse Resp B/P B/P Pulse O2 O2 Flow FiO2 Mean Ox Delivery Rate 06/26 0400 95 Nasal 2.0L Cannula 06/26 0000 92 Nasal 2.0L Cannula 06/26 0000 97.1 70 26 158/88 92 Nasal 2.0L Cannula 06/25 2134 78 30 160/90 06/25 2000 93 Nasal 2.0L Cannula 06/25 1600 94 Nasal 2.0L Cannula 06/25 1600 98.0 73 27 152/66 94 Nasal 2.0L Cannula 06/25 1542 94 Nasal 2.0L Cannula 06/25 1219 92 Nasal 2.0L Cannula 06/25 1200 93 Nasal 2.0L Cannula Intake & Output 06/26 1600 06/26 0800 06/26 0000 Intake Total 120 240 Output Total Balance 120 240 Intake, IV 0 0 Intake, Oral 120 240 Number [address] chest abdomen and pelvis IMPRESSION: 1. [id number] pleural effusions, left greater than right side with associated dependent atelectasis. There is complete atelectasis and consolidation of the left lower lobe and additional atelectatic changes in the lingula and right lower lobe. No significant high attenuation within the pleural fluid to suggest hemothorax. 2. Presumed small chest wall hematoma below the left breast related to prior chest tube insertion. Recommend reassessment on follow-up to exclude underlying mass in this region. 3. Small volume of ascites is seen around the liver and in the pelvis. No evidence of retroperitoneal bleed or abdominal wall bleed. Impression/Plan Impression/Plan Impression/Plan: Physical Exam: General Appearance: well developed/nourished, no apparent distress, alert, awake Cardiovascular: regular rate/rhythm Lungs- dressing with minimal s/s staining. R lung clear. L lung with reduced breath sounds at bases Gastrointestinal: normal bowel sounds, soft, non-tender, no organomegaly Extremities: normal inspection, normal capillary refill, normal range of motion Cranial Nerves: normal hearing, normal speech, PERRL Skin: intact Skin Temp/Moisture Exam: Warm/Dry IMPRESSION This is a lady with previous history of colon cancer status post right colectomy came in for replacement of left Port-A-Cath placement following the procedure she went in to cardiac arrest. Issues include Postoperative cardiac arrest which seems to be probably related to tension pneumothorax patient was treated with status post chest tube now improved with successful resuscitation, s/p intubation now successful extubation on room air Left-sided chest discomfort most likely related to chest tube and chest compression Bilateral pleural effusion more in the left than the right with left lower lobe atelectasis. The density of pleural effusion is not suggestive of hemothorax. Patient does have a small hematoma around the chest tube insertion site subcutaneously. Elevated troponin trending down probable demand ischemia versus non-ST [place] Wide-complex tachycardia during code situation improved No clinical evidence suggestive of pulmonary embolism at this time with a negative VQ scan with normal LV function and RV function Leukocytosis with probable aspiration pneumonia on appropriate antibiotics Recommendation Continue incentive spirometry Attempt one dose of by mouth Lasix 40 mg 1 to see whether she would diuresis as she seems to have bilateral effusions probably from fluid resuscitation after the code Continue antibiotics and if stable can be switched to by mouth Augmentin and can be DC'd after total of 5 days Sputum culture Aggressive bowel regimen Follow electrolytes and divalents and appropriatly replace them Follow hemoglobin and hematocrit We will follow closely and can be transferred to telemetry floor later on
--- NOTE | 2016-06-26 09:22 | PN- General Surgery ---
Surgical Brief Attending Note Brief Attending Note: Pt with continued clinical improvement H&H imporved Okay to transfer out of ICU Agree pt needs at least one more hospital day PT eval in AM - pt appears that she may need some rehab services at home
--- NOTE | 2016-06-26 11:10 | PN- Cardiology ---
Subjective Subjective: * Mild exertional shortness of breath that is slightly worse than yesterday. Mild chest discomfort over chest tube site. * Bilateral pleural effusions noted on chest X-ray * low probablility of pulmonary embolism * troponin coming down Objective Vital Signs and I&Os Vital Signs Date Time Temp Pulse Resp B/P B/P Pulse O2 O2 Flow FiO2 Mean Ox Delivery Rate 06/26 829 94 Nasal 1.0L Cannula 06/26 08 93 Nasal 2.0L Cannula 06/26 08 97.3 64 22 160/74 93 Nasal 2.0L Cannula 06/26 0400 95 Nasal 2.0L Cannula 06/26 0000 92 Nasal 2.0L Cannula 06/26 0000 97.1 70 26 158/88 92 Nasal 2.0L Cannula 06/25 2134 78 30 160/90 06/25 2000 93 Nasal 2.0L Cannula 06/25 1600 94 Nasal 2.0L Cannula 06/25 1600 98.0 73 27 152/66 94 Nasal 2.0L Cannula 06/25 1542 94 Nasal 2.0L Cannula 06/25 1219 92 Nasal 2.0L Cannula 06/25 1200 93 Nasal 2.0L Cannula Intake & Output 06/26 1600 06/26 0800 06/26 0000 06/25 1600 06/25 0800 06/25 0000 Intake Total 120 240 700 890 860 Output Total 910 1050 1250 Balance 120 240 -210 -160 -390 Intake, Blood 360 Product Intake, IV 0 0 220 230 260 Intake, Oral 120 240 480 300 600 Number 0 0 1 0 0 Bowel Movements Output, Urine 910 1050 1250 Physical Exam: General: WD/ overweight female in NAD; alert and oriented x 3 Neck: no JVD Heart: RRR w/o murmur Lungs: decreased breath sounds at left basees bilaterally Extremities: no edema Assessment/Plan Assessment/Plan * Patient continues to have chest discomfort attributed to her chest tube. This is a pleuritic and non-cardiac pain. In consideration of her cardiac arrest, positive cardiac enzymes, VT and persistent chest discomfort consideration should be given to a pharmocologic stress test prior to discharge or cardiac catheterization. For now continue a small dose of Metoprolol at 12.5mg BID and monitor for bradycardia. * Agree with Lasix to treat pleural effusions with monitoring of her creatinine. Continue telemetry? Yes
[2016-06-26 14:32] VITALS: BP 174/86
[2016-06-26 22:00] VITALS: BP 150/90
--- NOTE | 2016-06-27 07:19 | PN- Housestaff ---
See Addendum Subjective Follow-up For: Chest discomfort Bilateral pleural effusions Postoperative cardiac arrest Tele-Events Since Last Visit: Normal sinus rhythm HR 60-70s No events Subjective: No acute events overnight. Patient seen and examined this morning. She appears anxious and tearful expressing her worries regarding her recent diagnosis of colon cancer as well as the recent cardiac arrest. She complains of chest discomfort exacerbated by deep breathing which she attributes to the chest compressions. She continues to feel weak. She remains on 1 L -2 L NC. This morning patient had significant bleeding from the old chest tube site. She was seen by surgery who recommended the application of an occlusive pressure dressing which controlled the bleeding. However when patient went down to the stress test, she had profuse bleeding from the site requiring dressing change. Stress test was subsequently canceled and patient was brought back to the floor. Surgery placed 3 sutures at the site and placed new dressing. A chest wall hematoma was noted, with bleeding attributed to a combination of hematoma and pleural effusion. Patient continued to require frequent dressing changes. Review of Systems Constitutional: Reports: see HPI. Objective Last 24 Hrs of Vital Signs/I&O Vital Signs Date Time Temp Pulse Resp B/P B/P Pulse O2 O2 Flow FiO2 Mean Ox Delivery Rate 06/27 1626 94 Nasal 2.0L Cannula 06/27 1530 99.0 77 18 172/88 92 Nasal 2.0L Cannula 06/27 0851 190/80 06/27 0822 98.6 79 20 190/92 92 Nasal 1.0L Cannula 06/27 0802 95 Nasal 2.0L Cannula 06/27 0000 Nasal 2.0L Cannula 06/27 0000 Nasal 2.0L Cannula 06/26 2219 75 150/90 06/26 2200 98.0 70 20 150/90 94 Nasal 2.0L Cannula 06/26 1948 96 Nasal 2.0L Cannula Intake & Output 06/27 1600 06/27 0800 06/27 0000 Intake Total 450 Output Total 1400 100 450 Balance -950 -100 -450 Intake, IV 50 Intake, Oral 400 Output, Urine 1400 100 450 Patient 81.647 kg Weight Weight Standing Scale Measurement Method Physical Exam General Appearance: Alert, Oriented X3, No Acute Distress HEENT: Atraumatic, Mucous Membr. moist/pink Neck: Supple Cardiovascular: Regular Rate, Normal S1, Normal S2, No Murmurs, Gallops, Rubs Lungs: Clear to Auscultation Abdomen: Soft, No Tenderness, Positive Bowel Sounds Extremities: No Clubbing, No Cyanosis, No Edema Current Medications: Current Medications Sig/Rafaela Start time Last Medication Dose Route Stop Time Status Admin Acetaminophen 650 MG Q6-PRN PRN 06/26 0615 AC 06/27 PO 1748 Albuterol Sulfate 3 ML BID 06/26 2200 AC 06/26 INH 1942 Alprazolam 0.25 MG TID PRN 06/25 2045 AC 06/27 PO 0816 Amoxicillin/ 875 MG Q12 06/25 2199 AC 06/27 Clavulanate Potassium PO 06/27 2200 1310 Dipyridamole 45 MG ONE ONE 06/27 0800 DC Dextrose/Water 31 ML IV 06/27 0801 Docusate Sodium 100 MG DAILY NEEDED PRN 06/24 1615 AC 06/26 PO 1004 Furosemide 40 MG ONCE ONE 06/27 0930 DC 06/27 IV 06/27 0931 1310 Hydralazine HCl 10 MG ONCE ONE 06/27 0815 DC PO 06/27 0816 Metoprolol Tartrate 25 MG BID 06/27 2199 AC PO Metoprolol Tartrate 12.5 MG BID 06/25 220 DC 06/27 PO 0851 Omeprazole 40 MG DAILY AC 06/26 0700 AC 06/26 PO 0619 Phenol 2 SPRAY Q2P PRN 06/23 1200 AC 06/23 EXT 1223 Polyethylene Glycol 17 GM DAILY PRN 06/24 1600 AC 06/26 PO 1004 Senna 187 MG AT BEDTIME PRN 06/25 1115 AC PO Last 24 Hrs of Lab/Sherman Results Last 24 Hrs of Labs/Mics: Laboratory Tests 06/27/16 1220: Anion Gap 15, Estimated GFR 55 L, BUN/Creatinine Ratio 14.0, Magnesium 1.8, CBC w Diff NO MAN DIFF REQ, RBC 3.99 L, MCV 84.3, MCH 28.9, RDW 16.9 H, MPV 8.1, Gran % 81.2 H, Lymphocytes % 8.1 L, Monocytes % 5.3, Eosinophils % 4.3, Basophils % 1.1, Absolute Granulocytes 13.4 H, Absolute Lymphocytes 1.3, Absolute Monocytes 0.9 H, Absolute Eosinophils 0.7, Absolute Basophils 0.2, PUBS MCHC 34.3 Orders Radiology Findings: CXR: Interval decrease in size of the left-sided pleural effusion without resolution. Nonspecific retrocardiac airspace disease at left lower lobe of the lung, and subtle airspace disease at right lung base, appear unchanged. No new abnormalities. Assessment/Plan Assessment: 71 y/o F with PMHx of lymph node-positive colon cancer who was admitted for post -operative cardiac arrest likely secondary to tension pneumothorax during Port-A -Cath placement. #Chest discomfort: Likely secondary to chest compressions and chest tube. Plan for stress test in view of positive cardiac enzymes and possible ventricular tachycardia seen during code. * Cardiology following. Appreciate their recs. * Pharmacologic stress test canceled today due to bleeding at the old chest tube site. Rescheduled for Monday (06/29/16). * Discharge home after stress test. #Bleeding at chest tube site: Fluid leaking from old chest tube site felt to be a combination of pleural effusion and draining chest wall hematoma. Wound sutured by general surgery and dressing applied. * Management per general surgery team. * Change dressing as needed. #Bilateral pleural effusions: Improving. CXR today with interval decrease in left-sided pleural effusion. * Administer Lasix 40 mg IV x1. #Uncontrolled HTN: BP elevated to 190/92 this morning. * Increase metoprolol to 25 mg PO BID. Diet: Regular DVT PPx: ALPs CODE: FULL Problem List: 1. Chest wall hematoma 2. Bilateral pleural effusion 3. S/P chest tube placement 4. Uncontrolled hypertension 5. Cardiac arrest 6. Colon cancer Pain Ratin Pain Location: N/A Pain Goal: Remain pain free Pain Plan: Tylenol 650 mg PO Q6H PRN for moderate pain (scale 4-6) Tomorrow's Labs & Rationales: CBC to monitor H/H in the setting of chest wall hematoma BMP to monitor lytes and kidney function in the setting of diuresis
[2016-06-27 08:22] VITALS: BP 190/92
--- NOTE | 2016-06-27 09:25 | NUR ---
BLOOD FROM CHEST TUBE SITE WAS REPORTED TO [facility]. WAS TOLD TO APPLY A DRY PRESSURE DRESSING TO SITE.
--- NOTE | 2016-06-27 09:52 | PN- Cardiology ---
Subjective Subjective: The patient complains of mild chest wall discomfort at the site of chest compressions. As of breath significantly improved. No palpitations. No diaphoresis. No lightheadedness or dizziness. No nausea or vomiting. Objective Vital Signs and I&Os Vital Signs Date Time Temp Pulse Resp B/P B/P Pulse O2 O2 Flow FiO2 Mean Ox Delivery Rate 06/27 0851 190/80 06/27 0822 98.6 79 20 190/92 92 Nasal 1.0L Cannula 06/27 0802 95 Nasal 2.0L Cannula 06/27 0000 Nasal 2.0L Cannula 06/27 0000 Nasal 2.0L Cannula 06/26 2219 75 150/90 06/26 2200 98.0 70 20 150/90 94 Nasal 2.0L Cannula 06/26 1948 96 Nasal 2.0L Cannula 06/26 1647 95 Nasal 2.0L Cannula 06/26 1432 97.9 73 20 174/86 95 Nasal 1.5L Cannula Intake & Output 06/27 0806/27 0000 06/26 1600 06/26 0800 06/26 0000 Intake Total 120 240 Output Total 100 450 Balance -100 -450 120 240 Intake, IV 0 0 Intake, Oral 120 240 Number 0 0 Bowel Movements Output, Urine 100 450 Patient 180 lb Weight Weight Standing Scale Measurement Method Physical Exam: Gen: The patient is in no acute distress HEENT: Normal nose, ears, and oropharynx. Pupils equal bilaterally. Conjunctiva normal. Neck: Supple with no JVD, no masses, and no thyromegaly Lungs: Scattered rales bilaterally with normal respiratory effort. Heart: RRR, S1, S2, no murmurs. No peripheral edema, 2+ pulses in the lower extremities bilaterally Abdomen: Soft, nontender, no masses. No hepatomegaly. No splenomegaly Extremities: No clubbing or cyanosis. Normal muscle strength in the upper and lower extremities Skin: Normal skin turgor with no skin ulcers or lesions noted. Neuro: Cranial nerves intact. Sensation intact Current Medications: Current Medications Sig/Rafaela Start time Last Medication Dose Route Stop Time Status Admin Acetaminophen 650 MG Q6-PRN PRN 06/26 0615 AC 06/26 PO 0619 Albuterol Sulfate 3 ML BID 06/26 2200 AC 06/26 INH 194 Albuterol Sulfate 3 ML EVERY 4 HRS/AWAKE 06/24 1200 DC 06/26 INH 0817 Alprazolam 0.25 MG TID PRN 06/25 2045 AC 06/27 PO 0816 Amoxicillin/ 875 MG Q12 06/25 2199 AC 06/26 Clavulanate Potassium PO 06/27 2201 2218 Dipyridamole 45 MG ONE ONE 06/27 0800 DC Dextrose/Water 31 ML IV 06/27 0801 Docusate Sodium 100 MG DAILY NEEDED PRN 06/24 1615 AC 06/26 PO 1004 Furosemide 40 MG ONE ONE 06/26 1045 DC 06/26 PO 06/26 1046 1207 Hydralazine HCl 10 MG ONCE ONE 06/27 0815 DC PO 06/27 0816 Metoprolol Tartrate 12.5 MG BID 06/25 2199 AC 06/27 PO 0851 Omeprazole 40 MG DAILY AC 06/26 0700 AC 06/26 PO 0619 Phenol 2 SPRAY Q2P PRN 06/23 1200 AC 06/23 EXT 1223 Polyethylene Glycol 17 GM DAILY PRN 06/24 1600 AC 06/26 PO 1004 Potassium Chloride 10 MEQ ONCE ONE 06/26 1045 DC 06/26 PO 06/26 1046 1207 Senna 187 MG AT BEDTIME PRN 06/25 1115 AC PO Results Last 48 Hrs of Labs/Mics: Laboratory Tests 06/26/16 0452: Anion Gap 10, Estimated GFR 44 L, Glucose 93, Calcium 8.3 L, Phosphorus 4.2, Magnesium 2.0, Total Bilirubin 1.0, AST 29, ALT 57 H, Albumin 3.0 L, CBC w Diff NO MAN DIFF REQ, RBC 3.69 L, MCV 84.9, MCH 28.6, RDW 17.4 H, MPV 8.0, Gran % 71.7, Lymphocytes % 9.9 L, Monocytes % 3.2, Eosinophils % 14.3 H, Basophils % 0.9, Absolute Granulocytes 10.3 H, Absolute Lymphocytes 1.4, Absolute Monocytes 0.5, Absolute Eosinophils 2.0, Absolute Basophils 0.1, PUBS MCHC 33.7 Recent Imaging Studies: CT scan of the abdomen and pelvis: 1. [id number] pleural effusions, left greater than right side with associated dependent atelectasis. There is complete atelectasis and consolidation of the left lower lobe and additional atelectatic changes in the lingula and right lower lobe. No significant high attenuation within the pleural fluid to suggest hemothorax. 2. Presumed small chest wall hematoma below the left breast related to prior chest tube insertion. Recommend reassessment on follow-up to exclude underlying mass in this region. 3. Small volume of ascites is seen around the liver and in the pelvis. No evidence of retroperitoneal bleed or abdominal wall bleed. Assessment/Plan Assessment/Plan Assessment: 1. Postoperative cardiac arrest, likely secondary to tension pneumothorax 2. Chest discomfort, likely secondary to chest tube and recent chest compressions 3. Positive troponin, likely demand ischemia. No evidence at this time of non- ST elevation myocardial infarction 4. Wide complex tachycardia noted during code, no recurrence 5. Bilateral pleural effusions 6. Possible diastolic heart failure 7. Hypertension, uncontrolled Plan: * Lasix 40 mg IV 1 today for pleural effusions and diastolic heart failure * Persantine Mibi stress test today. * Increase metoprolol to 25 mg by mouth twice a day given the elevated blood pressure Continue telemetry? Yes
--- NOTE | 2016-06-27 11:47 | PN- General Surgery ---
See Addendum Subjective Subjective: Called to see patient regarding oozing from chest tube site. Pt states that she had been using her incentive spirometer and just after she stopped she felt some oozing from that area. RN states that she has changed her dressing twice but that the dressings are becoming increasingly saturated. Objective Vital Signs and I&Os Vital Signs Date Time Temp Pulse Resp B/P B/P Pulse O2 O2 Flow FiO2 Mean Ox Delivery Rate 06/27 0851 190/80 06/27 08 98.6 79 20 190/92 92 Nasal 1.0L Cannula 06/27 0802 95 Nasal 2.0L Cannula 06/27 0000 Nasal 2.0L Cannula 06/27 0000 Nasal 2.0L Cannula 06/26 2219 75 150/90 06/26 2200 98.0 70 20 150/90 94 Nasal 2.0L Cannula 06/26 1948 96 Nasal 2.0L Cannula 06/26 1647 95 Nasal 2.0L Cannula 06/26 1432 97.9 73 20 174/86 95 Nasal 1.5L Cannula Intake & Output 06/27 1600 06/27 0800 06/27 0000 06/26 1600 06/26 0800 06/26 0000 Intake Total 120 240 Output Total 100 450 Balance -100 -450 120 240 Intake, IV 0 0 Intake, Oral 120 240 Number 0 0 Bowel Movements Output, Urine 100 450 Patient 180 lb Weight Weight Standing Scale Measurement Method Physical Exam: CT site: Dressing with light bloody drainage. Dressings removed and pressure held to area, no obvious area of bleeding. Fluid is bloody, no clots. Oozing stops after pressure held about two minutes. Re-dressed with fluff/ABD pads. Assessment/Plan Assessment/Plan 71 yo female s/p portacath placement complicated by tension ptx/cardiac event requiring CT which was removed several days ago and now with new drainage Drainage is likely pleural fluid which is now oozing out of the site. Likely a clot was disturbed during aggressive incentive spirometry, which allowed for drainage. No obvious skin or subcut bleeding Recommend reinforce dressing prn fu cxr to see if there is much pleural fluid May have to place a suture to the site if it continues to drain Core Measures/Miscellaneous Venous Thromboembolism VTE Risk Factors: Age > 40, Surgery VTE Contraindications: No Contraindications No Pharm VTE Prophylaxis D/T: Active Bleeding VTE Diagnosis: No VTE Type: NONE VTE Confirmed by (Test): NONE Beta Douglas Is Beta Douglas a Home Med? No Antibiotics Is Patient on Antibiotics? Yes If Yes: prophylaxis
--- NOTE | 2016-06-27 12:55 | PN- General Surgery ---
Surgical Brief Attending Note Brief Attending Note: PT ovweral doing better Some chest wall bleeding at old chest tube site PA resutured wound and placed new dressing Plan: Check CBC and BMP Check CXR today Stress test tomorrow likely d/c after stress test
[2016-06-27] MEDS ORDERED: METOPROLOL TART25 M1 PO (13:26)
[2016-06-27 14:21] LABS: ABSOLUTE BASOPHIL COUNT 0.2 /CUMM (0.0-0.2); ABSOLUTE EOSINOPHIL COUNT 0.7 /CUMM (0.0-0.7); ABSOLUTE GRANULOCYTE CT 13.4 /CUMM (1.4-6.5); ABSOLUTE LYMPH COUNT 1.3 /CUMM (1.2-3.4); ABSOLUTE MONOCYTE COUNT 0.9 /CUMM (0.10-0.60); BASOPHIL % 1.1 % (0.0-2.0); EOSINOPHIL % 4.3 % (0-5); GRANULOCYTE % 81.2 % (42.2-75.2); HEMATOCRIT 33.7 % (37-47); MEAN CORPUSCULAR HGB 28.9 PG (27.0-31.0); MEAN CORPUSCULAR HGB CONC 34.3 G/DL (33.0-37.0); MEAN CORPUSCULAR VOLUME 84.3 FL (81.0-99.0); MEAN PLATELET VOLUME 8.1 FL (7.4-10.4); PLATELET COUNT 544 /CUMM (130-400); RBC DISTRIBUTION WIDTH 16.9 % (11.5-14.5); RED BLOOD CELL CT 3.99 /CUMM (4.20-5.40); WHITE BLOOD CELL COUNT 16.5 /CUMM (4.8-10.8)
--- NOTE | 2016-06-27 14:39 | RADIOLOGY REPORT ---
EXAMINATION: XR CHEST CLINICAL INFORMATION: [id number] left-sided pleural effusion. For follow up. COMPARISON: Chest done on 06/24/2016. TECHNIQUE: Portable frontal 85 degrees view of the chest was obtained. FINDINGS: The size of the left-sided pleural effusion has decreased since 06/24/2016. Mild residual effusion is still present with nonspecific persistent airspace disease at left lower lobe. Previously documented nonspecific airspace disease at right lung base also appears unchanged. No new abnormalities. The cardiomediastinal silhouette is mildly enlarged. There is a left-sided Port-A-Cath present, tip of the catheter is seen projecting at the level of the superior vena cava, unchanged. IMPRESSION: Interval decrease in size of the left-sided pleural effusion without resolution. Nonspecific retrocardiac airspace disease at left lower lobe of the lung, and subtle airspace disease at right lung base, appear unchanged. No new abnormalities.
[2016-06-27 15:30] VITALS: BP 172/88
[2016-06-28 00:56] VITALS: BP 164/80
--- NOTE | 2016-06-28 07:14 | PN- Housestaff ---
See Addendum Subjective Follow-up For: Chest discomfort Bilateral pleural effusions Postoperative cardiac arrest Tele-Events Since Last Visit: Sinus rhythm HR 63-73 No events Subjective: No acute events overnight. Patient seen and examined this morning. She feels good this morning and is eager to go home. Bleeding from chest tube site has decreased significantly. Respiratory status is stable and she remains on 1-2 L NC. She continues to have intermittent episodes of chest discomfort but it is improving overall. Review of Systems Constitutional: Reports: see HPI. Objective Last 24 Hrs of Vital Signs/I&O Vital Signs Date Time Temp Pulse Resp B/P B/P Pulse O2 O2 Flow FiO2 Mean Ox Delivery Rate 06/28 1039 99.0 68 18 164/74 95 Nasal 2.0L Cannula 06/28 1017 154/70 06/28 0841 93 Nasal 1.0L Cannula 06/28 0800 94 Nasal 2.0L Cannula 06/28 0056 99.6 73 18 164/80 93 Room Air 06/28 0000 96 Nasal 2.0L Cannula 06/27 2144 80 162/76 06/27 1925 90 Room Air Intake & Output 06/28 1600 06/28 0800 06/28 0000 Intake Total 240 240 Output Total 350 800 Balance -110 -560 Intake, Oral 240 240 Output, Urine 350 800 Patient 78.018 kg Weight Weight Chair scale Measurement Method Physical Exam General Appearance: Alert, Oriented X3, No Acute Distress HEENT: Atraumatic, Mucous Membr. moist/pink Neck: Supple Cardiovascular: Regular Rate, Normal S1, Normal S2, No Murmurs, Gallops, Rubs Lungs: Few Crackles Scattered Throughout Bilateral Lung Gill Abdomen: Soft, No Tenderness, Positive Bowel Sounds Extremities: No Clubbing, No Cyanosis, No Edema Current Medications: Current Medications Sig/Rafaela Start time Last Medication Dose Route Stop Time Status Admin Acetaminophen 650 MG .STK-MED ONE 06/28 0126 DC PO 06/28 0127 Acetaminophen 650 MG .STK-MED ONE 06/27 1730 DC PO 06/27 1731 Acetaminophen 650 MG Q6-PRN PRN 06/26 0615 DCD 06/28 PO 1249 Albuterol Sulfate 3 ML BID 06/26 2199 DCD 06/28 INH 0827 Alprazolam 0.25 MG TID PRN 06/25 2044 DCD 06/27 PO 2147 Amoxicillin/ 875 MG Q12 06/25 2199 DC 06/27 Clavulanate Potassium PO 06/27 220 2141 Docusate Sodium 100 MG DAILY NEEDED PRN 06/24 1615 DCD 06/26 PO 1004 Metoprolol Tartrate 50 MG BID 06/28 2199 DCD PO Metoprolol Tartrate 25 MG BID 06/27 2200 DC 06/28 PO 1017 Omeprazole 40 MG DAILY AC 06/26 0700 DCD 06/28 PO 0628 Patient Medication 1 ED .STK-MED ONE 06/28 1340 MO Teaching ED 06/28 1341 Phenol 2 SPRAY Q2P PRN 06/23 1200 DCD 06/23 EXT 1223 Polyethylene Glycol 17 GM DAILY PRN 06/24 1600 DCD 06/26 PO 1004 Potassium Chloride 40 MEQ Q1H 06/28 1115 DC 06/28 PO 06/28 1216 1248 Senna 187 MG AT BEDTIME PRN 06/25 1115 DCD PO Last 24 Hrs of Lab/Sherman Results Last 24 Hrs of Labs/Mics: Laboratory Tests 06/28/16 0744: Anion Gap 12, Estimated GFR 44 L, BUN/Creatinine Ratio 14.2, Magnesium 1.6, CBC w Diff NO MAN DIFF REQ, RBC 3.95 L, MCV 84.9, MCH 28.4, RDW 17.2 H, MPV 7.8, Gran % 81.5 H, Lymphocytes % 8.6 L, Monocytes % 4.7, Eosinophils % 4.6, Basophils % 0.6, Absolute Granulocytes 13.0 H, Absolute Lymphocytes 1.4, Absolute Monocytes 0.7 H, Absolute Eosinophils 0.7, Absolute Basophils 0.1, PUBS MCHC 33.5 Assessment/Plan Assessment: 71 y/o F with PMHx of lymph node-positive colon cancer who was admitted for post -operative cardiac arrest likely secondary to tension pneumothorax during Port-A -Cath placement. Discharge home with nursing and physical therapy today. #Chest discomfort: Likely secondary to chest compressions and chest tube. * Follow up with cardiology within one weke of discharge. * Pharmacologic stress test as outpatient in view of positive cardiac enzymes and possible ventricular tachycardia seen during code. #Bleeding at chest tube site: Fluid leaking from old chest tube site felt to be a combination of pleural effusion and draining chest wall hematoma. Wound sutured by general surgery and dressing applied. Bleeding has significantly improved today. * Apply dry dressing to old chest tube site until the bleeding stops with dressing changes every other day or sooner if it gets wet or saturated after discharge. * Home nursing arranged to manage dressing by case management. * Follow up with Dr. Go within one week of discharge. #Uncontrolled HTN: BP improved to 164/74 today. * Metoprolol increased to 50 mg PO BID on discharge. Diet: Regular DVT PPx: ALPs CODE: FULL Problem List: 1. Chest wall hematoma 2. Bilateral pleural effusion 3. Uncontrolled hypertension 4. S/P chest tube placement 5. Colon cancer 6. Cardiac arrest 7. Acute blood loss anemia 8. Tension pneumothorax Pain Ratin Pain Location: N/A Pain Goal: Remain pain free Pain Plan: Tylenol 650 mg PO Q6H Tomorrow's Labs & Rationales: None Discharge Plan Discharge Disposition: home Stable for Discharge? Yes Anticipated Discharge (Day): today
[2016-06-28 09:17] LABS: ABSOLUTE BASOPHIL COUNT 0.1 /CUMM (0.0-0.2); ABSOLUTE EOSINOPHIL COUNT 0.7 /CUMM (0.0-0.7); ABSOLUTE LYMPH COUNT 1.4 /CUMM (1.2-3.4); ABSOLUTE MONOCYTE COUNT 0.7 /CUMM (0.10-0.60); BASOPHIL % 0.6 % (0.0-2.0); EOSINOPHIL % 4.6 % (0-5); GRANULOCYTE % 81.5 % (42.2-75.2); HEMATOCRIT 33.5 % (37-47); MEAN CORPUSCULAR HGB 28.4 PG (27.0-31.0); MEAN CORPUSCULAR HGB CONC 33.5 G/DL (33.0-37.0); MEAN CORPUSCULAR VOLUME 84.9 FL (81.0-99.0); MEAN PLATELET VOLUME 7.8 FL (7.4-10.4); PLATELET COUNT 552 /CUMM (130-400); RBC DISTRIBUTION WIDTH 17.2 % (11.5-14.5); RED BLOOD CELL CT 3.95 /CUMM (4.20-5.40)
[2016-06-28 10:39] VITALS: BP 164/74
--- NOTE | 2016-06-28 10:44 | NUR ---
PT AMBULATED ON ROOM AIR. O2 SAT 87%. AT REST ON ROOM AIR 89%. 94% ON 2L NC AT REST
--- NOTE | 2016-06-28 11:38 | PN- Cardiology ---
Subjective Subjective: Stress test was postponed because of bleeding from chest tube site and inability to lie flat. No chest pain. No palpitations. No shortness of breath. No diaphoresis. Objective Vital Signs and I&Os Vital Signs Date Time Temp Pulse Resp B/P B/P Pulse O2 O2 Flow FiO2 Mean Ox Delivery Rate 06/28 1039 99.0 68 18 164/74 95 Nasal 2.0L Cannula 06/28 1017 154/70 06/28 0841 93 Nasal 1.0L Cannula 06/28 0800 94 Nasal 2.0L Cannula 06/28 0056 99.6 73 18 164/80 93 Room Air 06/28 0000 96 Nasal 2.0L Cannula 06/27 2144 80 162/76 06/27 1925 90 Room Air 06/27 1626 94 Nasal 2.0L Cannula 06/27 1530 99.0 77 18 172/88 92 Nasal 2.0L Cannula Intake & Output 06/28 1600 06/28 0800 / 0000 06/27 1600 06/27 0800 06/27 0000 Intake Total 240 240 450 Output Total 971 852 0054 100 450 Balance -110 -560 -950 -100 -450 Intake, IV 50 Intake, Oral 240 240 400 Output, Urine 254 639 8556 100 450 Patient 172 lb 180 lb Weight Weight Chair scale Standing Scale Measurement Method Physical Exam: Gen: The patient is in no acute distress HEENT: Normal nose, ears, and oropharynx. Pupils equal bilaterally. Conjunctiva normal. Neck: Supple with no JVD, no masses, and no thyromegaly Lungs: Scattered rales bilaterally with normal respiratory effort. Heart: RRR, S1, S2, no murmurs. No peripheral edema, 2+ pulses in the lower extremities bilaterally Abdomen: Soft, nontender, no masses. No hepatomegaly. No splenomegaly Extremities: No clubbing or cyanosis. Normal muscle strength in the upper and lower extremities Skin: Normal skin turgor with no skin ulcers or lesions noted. Neuro: Cranial nerves intact. Sensation intact Current Medications: Current Medications Sig/Rafaela Start time Last Medication Dose Route Stop Time Status Admin Acetaminophen 650 MG .STK-MED ONE 06/28 0126 DC PO 06/28 0127 Acetaminophen 650 MG .STK-MED ONE 06/27 1730 DC PO 06/27 173 Acetaminophen 650 MG Q6-PRN PRN 06/26 0615 AC 06/28 PO 0132 Albuterol Sulfate 3 ML BID 06/26 2199 AC 06/28 INH 0827 Alprazolam 0.25 MG TID PRN 06/25 2044 AC 06/27 PO 2147 Amoxicillin/ 875 MG Q12 06/25 2199 DC 06/27 Clavulanate Potassium PO 06/27 Docusate Sodium 100 MG DAILY NEEDED PRN 06/24 1615 AC 06/26 PO 1004 Metoprolol Tartrate 25 MG BID 06/27 2199 AC 06/28 PO 1017 Omeprazole 40 MG DAILY AC 06/26 0700 AC 06/28 PO 0628 Phenol 2 SPRAY Q2P PRN 06/23 1200 AC 06/23 EXT 1223 Polyethylene Glycol 17 GM DAILY PRN 06/24 1600 AC 06/26 PO 1004 Potassium Chloride 40 MEQ Q1H 06/28 1115 AC PO 06/28 1216 Senna 187 MG AT BEDTIME PRN 06/25 1115 AC PO Results Last 48 Hrs of Labs/Mics: Laboratory Tests 06/28/16 0744: Anion Gap 12, Estimated GFR 44 L, BUN/Creatinine Ratio 14.2, Magnesium Pending, CBC w Diff NO MAN DIFF REQ, RBC 3.95 L, MCV 84.9, MCH 28.4, RDW 17.2 H, MPV 7.8, Gran % 81.5 H, Lymphocytes % 8.6 L, Monocytes % 4.7, Eosinophils % 4.6, Basophils % 0.6, Absolute Granulocytes 13.0 H, Absolute Lymphocytes 1.4, Absolute Monocytes 0.7 H, Absolute Eosinophils 0.7, Absolute Basophils 0.1, PUBS MCHC 33.5 06/27/16 1220: Anion Gap 15, Estimated GFR 55 L, BUN/Creatinine Ratio 14.0, Magnesium 1.8, CBC w Diff NO MAN DIFF REQ, RBC 3.99 L, MCV 84.3, MCH 28.9, RDW 16.9 H, MPV 8.1, Gran % 81.2 H, Lymphocytes % 8.1 L, Monocytes % 5.3, Eosinophils % 4.3, Basophils % 1.1, Absolute Granulocytes 13.4 H, Absolute Lymphocytes 1.3, Absolute Monocytes 0.9 H, Absolute Eosinophils 0.7, Absolute Basophils 0.2, PUBS MCHC 34.3 Recent Imaging Studies: Chest x-ray: Interval decrease in size of the left-sided pleural effusion without resolution. Nonspecific retrocardiac airspace disease at left lower lobe of the lung, and subtle airspace disease at right lung base, appear unchanged. No new abnormalities. Assessment/Plan Assessment/Plan Assessment: 1. Postoperative cardiac arrest, likely secondary to tension pneumothorax 2. Chest discomfort, likely secondary to chest tube and recent chest compressions 3. Positive troponin, likely demand ischemia. No evidence at this time of non- ST elevation myocardial infarction 4. Wide complex tachycardia noted during code, no recurrence 5. Bilateral pleural effusions 6. Possible diastolic heart failure 7. Hypertension, uncontrolled Plan: * Increase metoprolol to 50 mg by mouth twice a day * Persantine sestamibi stress test to be done as outpatient. * The patient is clear for discharge from cardiac point. * Follow up in the office in one week Continue telemetry? Yes
[2016-06-28] MEDS ORDERED: METOPROLOL TART50 M1 PO (13:11)
--- NOTE | 2016-06-28 15:10 | Discharge Summary ---
Visit Information Visit Dates Admission Date: 06/21/16 Discharge Date: 06/28/16 Hospital Course Course Attending Physician: FLORA VALLADARES MD Primary Care Physician: DENNISE DAVIS,SEGUN Rebolledo Consulting Request: 1 Consulting Specialty: Thoracic/Vascular Surgery Consulting Physician: Kip Go MD Reason for Consult: Intraoperative cardiac arrest secondary to tension pneumothorax Consulting Request: 2 Consulting Specialty: Critical Care Consulting Physician: Kaylee Akins MD Reason for Consult: Critically ill Consulting Request: 3 Consulting Specialty: Cardiology Consulting Physician: Nacho Jackman MD Reason for Consult: Cardiac Arrest Hospital Course: Ms. Jauregui is a 71 y/o F with PMHx of lymph node-positive colon cancer s/p right colectomy who was admitted after undergoing cardiac arrest following placement of a Port-A-Cath. Postoperatively, patient became bradycardiac and hypotensive. This was suspected to be secondary to a tension pneumothorax and needle decompression of the left chest was performed. Although patient initially improved, she subsequently developed pulseless electrical activity and CPR and ACLS protocol was performed. Patient was noted to have wide complex tachycardia suspicious for ventricular tachycardia on the monitor, however no strips for available. A bedside ultrasound was performed that did not show any evidence of aortic dissection or pericardial effusion. Stat ECHO in the OR was performed due to concern for pulmonary embolism which showed normal left and right ventricular function and no evidence of right ventricular strain. tPA was held and IV heparin was started for possible pulmonary embolism. Labs revealed significant anemia and low potassium of 2.7 and patient was subsequently transfused 1 unit of pRBCs and potassium was repleted. CXR revealed left lower lobe opacity concerning for aspiration pneumonia and patient was pancultured and started on IV Unasyn. Patient remained on mechanical ventilation and IV pressors, Levophed and vasopressin, following code and was subsequently admitted to the ICU. Below are the issues that were addressed during current admission: #Postoperative cardiac arrest: This was felt to be secondary to a tension pneumothorax related to the subclavian Port-A-Cath procedure. Patient was maintained on ventilatory and pressor support. Patient became hemodynamically pressors off pressors on day 2 of admission and was successfully extubated on day 3 with her respiratory status remaining stable postextubation. IV heparin was discontinued on day 2 as patient developed bleeding from the chest tube, which was subsequently removed the next day. Following chest tube removal, CXR was performed which showed no evidence of pneumothorax, however CT scan of the chest revealed [id number] pleural effusions, left greater than right side. Patient was diuresed with Lasix with a repeat CXR showing interval decrease in the size of the pleural effusion. V/Q scan was performed which showed very low probability of pulmonary embolism. * Patient will follow up with her oncologist at [place] within one week of discharge to discuss chemotherapy. #Aspiration pneumonia: Patient remained on IV Unasyn for 4 days for empiric coverage of aspiration pneumonia and was later switched to Augmentin for 3 days for a total of 7 days of antibiotics. She remained afebrile throughout current hospitalization. Although WBC count improved from 30s on admission, patient still had significant leukocytosis with WBC count of 16.0 on day of discharge. #Acute blood loss anemia: Patient developed acute blood loss anemia and required 6 units of pRBCs during this admission. CT Chest/Abdomen/Pelvis W/O IV was performed which was negative for pneumothorax, hemothorax or retroperitoneal bleed but showed chest wall hematoma related to chest tube insertion. Later H/H stabilized and was 11.2/33.5 on day of discharge. #Chest discomfort: Patient endorsed chest discomfort which showed slow gradual improvement throughout hospitalization. Following code, she had an elevation in her troponins to 2.55, which later downtrended. Positive troponin was felt to be secondary to demand ischemia, in view of repeat ECHO which showed normal left ventricular function and no wall motion abnormalities. Patient was started on metoprolol for cardioprotection. Pharmacological stress test was scheduled but it could not be done as patient had significant bleeding at prior chest tube site which needed re-suturing prior to test. Stress test was deferred to the outpatient setting as patient was unable to lie flat and put her arms over her head for the stress test. * Patient was instructed to follow up with relations director Dr. Nacho Jackman within one week of discharge. * Stress test will be done as outpatient. #Hypertension: Although patient did not have a history of hypertension, she remained persistently hypertensive throughout hospitalization despite starting metoprolol, which was gradually uptitrated. * Patient will take metoprolol 50 mg PO BID on discharge. #Chest wall hematoma: On day 7 of admission, patient was noted to have some fluid leaking from the prior chest tube site, felt to be a combination of pleural effusion and draining chest wall hematoma. Wound was sutured by general surgery and pressure dressing was applied with improvement of bleeding. * Home nursing was arranged to manage wound care after discharge. Instructions were provided to continue to apply dry dressing to old chest tube site until the bleeding stops with dressing changes every other day or sooner if it gets wet or saturated. * Patient will follow up with thoracic surgeon Dr. Kip Go within one week of discharge. #Hypoxemia: Although respiratory status improved postextubation, patient was still requiring 1-2 L of oxygen on day of discharge. * Home oxygen was provided on discharge. Allergies: Coded Allergies: No Known Allergies (06/22/16) Disposition Summary Disposition Principal Diagnosis: Postoperative cardiac arrest secondary to tension pneumothorax during Port-A- Cath placement Additional Diagnosis: Aspiration pneumonia Acute blood loss anemia Chest discomfort Chest wall hematoma at chest tube site Pleural effusion Hypertension Hypoxemia Discharge Disposition: home health services Discharge Instructions General Discharge Information Code Status: Full Code Patient's Diet: Regular diet Patient's Activity: As tolerated with assistance Follow-Up Instructions/Appts: -Follow-up with your primary care physician within one week after discharge. Please inform your primary care physician of this admission to the ICU. -Please follow-up with the relations director Dr. Jackman within one week of discharge. We have provided you with a referral. -Please follow-up with surgeon Dr. Kip Go regarding bleeding at the old chest tube site within one week of discharge. Medications at Discharge Discharge Medications: Start taking the following new medications: Metoprolol Tartrate (Metoprolol Tartrate) 50 MG TABLET 1 Tablet ORAL TWICE DAILY Qty = 60 No Refills Comments: Last Taken: 06/28 Time: 0850 Copies To: CHADD CABRERA DO,BONG Sánchez; CARMELA DAVIS,Jose BOWDEN MD,SEGUN GO MD, KIP Charles JR; MARIELY DAVIS,NACHO Rodriguez MD Review Statement Documenting Attending: FLORA VALLADARES MD Other Findings: The patient was seen and agree with the plan of care upon discharge.
== END 2016-06-28 14:30 | disposition home health service (06) | DRG 374 ==
LOC: STS 02:37 → CRI 15:49 → PACUH 15:49 → 1NO 15:49 → CRI 17:20 → 1NO 06-26 13:56 → ENPENDDIS 06-28 12:02 → 1NO 06-28 14:30
PROVIDERS: Colon & Rectal Surgery; Dermatology; Internal Medicine; Internal Medicine Infectious Disease; Ophthalmology; Student in an Organized Health Care Education/Training Program; ADMIT Internal Medicine Pulmonary Disease
PROC: 5A1945Z Respiratory Ventilation, 24-96 Consecutive Hours (ICD-10-PCS; principal; 2016-06-21)
PROC: 05H633Z Insertion of Infusion Device into Left Subclavian Vein, Percutaneous Approach (ICD-10-PCS; principal; 2016-06-21)
PROC: 0BH17EZ Insertion of Endotracheal Airway into Trachea, Via Natural or Artificial Opening (ICD-10-PCS; 2016-06-21)
PROC: 0W9B30Z Drainage of Left Pleural Cavity with Drainage Device, Percutaneous Approach (ICD-10-PCS; 2016-06-21)
DX: C18.9 Malignant neoplasm of colon, unspecified (principal); I26.99 Other pulmonary embolism without acute cor pulmonale; J93.0 Spontaneous tension pneumothorax; I47.2 Ventricular tachycardia; J90 Pleural effusion, not elsewhere classified; I24.8 Other forms of acute ischemic heart disease; I50.30 Unspecified diastolic (congestive) heart failure; D62 Acute posthemorrhagic anemia; T81.11XA Postprocedural cardiogenic shock, initial encounter; I97.711 Intraoperative cardiac arrest during other surgery; I97.89 Other postprocedural complications and disorders of the circulatory system, not elsewhere classified; L76.32 Postprocedural hematoma of skin and subcutaneous tissue following other procedure; Y83.8 Other surgical procedures as the cause of abnormal reaction of the patient, or of later complication, without mention of misadventure at the time of the procedure; Y92.234 Operating room of hospital as the place of occurrence of the external cause; E87.6 Hypokalemia; D50.9 Iron deficiency anemia, unspecified; I10 Essential (primary) hypertension; Y92.230 Patient room in hospital as the place of occurrence of the external cause
CPT/HCPCS: 1NP; CCU; 36415; 74176; 78582; 82436; 86920; 87040; 87070; 87071; 87086; 93005; 93010; 93306; 93970; 97110-GO; 97116-GO; 97161-GP; 97530-GO; A9540; A9558; C1788; J0131; J0690; J1245; J1644; J1940; J2060; J2405; J7040; P9016